=== PATIENT | female | born 1950 | race Caucasian/White ===

== ENCOUNTER → 2020-10-05 09:30 | Outpatient (BNV) | payer MEDICARE, BC, SELFPAY | PROVIDERS: PCP Internal Medicine; Visit Provider Internal Medicine | DX: Z85.3 Personal history of malignant neoplasm of breast (principal); Z80.3 Family history of malignant neoplasm of breast; Z92.3 Personal history of irradiation | CPT/HCPCS: 99213; 99214 ==

== ENCOUNTER → 2020-10-19 09:36 | Outpatient (BNVA) | payer MEDICARE, BC, SELFPAY | PROVIDERS: PCP Internal Medicine; Visit Provider Surgery | DX: C50.911 Malignant neoplasm of unspecified site of right female breast (principal); Z12.31 Encounter for screening mammogram for malignant neoplasm of breast; Z95.828 Presence of other vascular implants and grafts | CPT/HCPCS: 99212 ==

== ENCOUNTER 2020-10-21 08:43 | Outpatient (REF) | payer MEDICARE, BC, SELFPAY ==
--- NOTE | 2020-10-21 08:47 | MM_ITS ---
EXAMINATION: MM SCREENING DIGITAL MAMMOGRAPHY, BILATERAL CLINICAL INFORMATION: Screening. Asymptomatic. 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 The lifetime risk of breast cancer based on the Tyrer-Cuzick Model is not applicable (personal history right breast cancer). COMPARISON: Mammography: Left mammography 09/19/19, 09/17/18, 09/10/17, 09/06/16 TECHNIQUE: Digital mammography is performed in craniocaudal and mediolateral oblique views along with computer-aided detection (CAD). Craniocaudal view of the left breast exaggerated toward the axilla was also performed using digital breast Tomosynthesis FINDINGS: There are scattered areas of fibroglandular density (ACR BI-RADS breast composition Category b). Left breast: There are multiple circumscribed oval equal density masses or localized areas of duct ectasia. There are some dilated ducts behind the left nipple. No spiculated masses. There are multiple round and punctate calcifications throughout the left breast. No definite suspicious Left breast finding MM/MM screening mammo unilat LT IMPRESSION: Left breast only was examined. Areas of ductal ectasia and or multiple circumscribed small oval masses. No definite suspicious new left breast finding. These areas should be reexamined in 1 year. ASSESSMENT: BI-RADS 2: Benign RECOMMENDATION: Routine annual mammography screening. This patient's information was entered into a reminder system with a target due date for their next mammogram.
== END 2020-10-21 08:44 | disposition home or self-care (01) ==
LOC: HO.MAMMO 08:43
PROVIDERS: Absent Provider Internal Medicine; PCP Internal Medicine; Visit Provider Surgery
DX: Z12.31 Encounter for screening mammogram for malignant neoplasm of breast (principal)
CPT/HCPCS: 77067

== ENCOUNTER 2020-11-10 13:37 | Outpatient (REF) | payer MEDICARE, BC, SELFPAY ==
[2020-11-10 13:44] VITALS: BP 139/63; PULSE 75; RESP 17; TEMP 36.8; O2SAT 97; BMI 34.6
[2020-11-10 15:27] VITALS: BP 129/61; PULSE 82; RESP 18; O2SAT 96
--- NOTE | 2020-11-10 16:56 | W.PM.OPN ---
Operative Note Operative Note Date of Service: 11/10/20 Narrative: Preoperative diagnosis: IV port in place, no longer needed Postoperative diagnosis: Same Procedure: Removal of subcutaneous IV port Anesthesia: Local 1% lidocaine with epinephrine Estimated blood loss: Less than 5 cc Immediate complications: None Specimen: None Indications: This is a 70-year-old female who has a recent history of breast cancer and has completed chemotherapy treatment. She has a left infraclavicular IV port in place. It is no longer needed and she has requested removal. She is familiar with the technique and risks of infection, bleeding, scarring and retained foreign material. Procedure in detail: The patient in the supine position, time-out procedure was performed. The left upper chest wall was prepped with Betadine solution and was draped sterilely. Skin and subcutaneous tissues at the insertion site scar and overlying and surrounding the port were infiltrated with local anesthetic. Incision was then made through the old scar and was carried into the subcutaneous tissues. The hub of the port was identified and the port was carefully dissected free. Two holding sutures were identified and removed. Remaining attachments between the port and soft tissues were divided. The catheter was easily yet extracted from the subcutaneous tunnel. Catheter length of 23 cm was documented. There was no bleeding from the catheter tract. The tract was oversewn with a single suture of 4-0 Polysorb. The port was removed from the pocket. The pocket was then reapproximated with interrupted subcutaneous sutures of 4-0 Polysorb and skin was closed with a running subcuticular suture of 4-0 Polysorb. Steri-Strips and dry sterile dressings were applied. She tolerated the procedure well. She will keep the area dry and covered for 24 hours, will use acetaminophen as needed for pain, and will follow up in the office for wound check in about 1 week.
== END 2020-11-10 13:38 | disposition home or self-care (01) ==
LOC: HO.MS 13:37
PROVIDERS: PCP Internal Medicine; Visit Provider Surgery
PROC: (CPT 36590; principal; 2020-11-10 14:00)
DX: Z45.2 Encounter for adjustment and management of vascular access device (principal); C50.919 Malignant neoplasm of unspecified site of unspecified female breast; Z92.21 Personal history of antineoplastic chemotherapy; G35 Multiple sclerosis; Z88.7 Allergy status to serum and vaccine
CPT/HCPCS: 36590

== ENCOUNTER → 2020-11-16 14:25 | Outpatient (BNVA) | payer MEDICARE, BC, SELFPAY | PROVIDERS: PCP Internal Medicine; Referring Provider Internal Medicine; Visit Provider Surgery | DX: C50.911 Malignant neoplasm of unspecified site of right female breast (principal); Z98.890 Other specified postprocedural states; Z92.21 Personal history of antineoplastic chemotherapy; Z92.3 Personal history of irradiation | CPT/HCPCS: 99212 ==

== ENCOUNTER → 2020-12-02 09:28 | Outpatient (REF) | payer MEDICARE, BC, SELFPAY ==
--- NOTE | 2020-12-02 09:30 | CA_ITS ---
Transthoracic Echocardiogram Patient (Last, First, Middle): Marizol Escalante M Gender: Female Date of : 1950 Age: 70 Procedure Date: 12/02/2020 Procedure Type: Transthoracic Echocardiogram Location: OP Height: 165.1 cm Weight: 94.8 kg BSA: 2.02 m2 Heart Rate: bpm BP: 128 / 68 mmHg Travel Administrator: CAROLYN Adorno MD: Abran Finley MD [employer]icated [employer] Driver: Kofi Prakash MD Symptoms: Z09 CHEMOTHERAPY FOLLOW UP EXAM, R06.02 SOB Study Quality: Fair ECG Rhythm: Sinus Conclusions: - 1. Normal LV systolic function with impaired relaxation filling pattern 2. Mildly dilated left atrium 3. Mild mitral and calcification with normal cardiac valvular Doppler 4. Normal RV systolic pressure 5. No pericardial effusion Findings Left Ventricle Normal left ventricular size, thickness, and systolic function. The visually estimated ejection fraction is between 60-65%. Spectral Doppler is indicative of an impaired relaxation filling pattern. E/E prime ratio is between 8 and 15 consistent with indeterminate filling pressures. Right Ventricle Normal right ventricular cavity size and systolic function. Atria The left atrium is mildly dilated. There is lipomatous hypertrophy of the interatrial septum. There is no evidence of interatrial shunt. The right atrium is normal in size. Aortic Valve The aortic valve structure and function is likely normal. There is no aortic valve stenosis. There is no aortic valve regurgitation. Mitral Valve There is mild posterior mitral leaflet thickening. There is mild mitral annular calcification. There is trace mitral valve regurgitation. There is no mitral valve stenosis. Pulmonic Valve The pulmonic valve was not well visualized. Tricuspid Valve Likely normal tricuspid valve structure and function. There is mild tricuspid valve regurgitation. The right ventricular systolic pressure is normal. The right ventricular systolic pressure is 24 mmHg. Normal right atrial pressure. There is no evidence of pulmonary hypertension. Great Vessels All visible segments of the aorta are normal in size. The pulmonary artery was not well visualized. Venous The inferior vena cava is normal in size and collapses greater than 50% with inspiration. Pericardium/Pleural There is no evidence of pericardial effusion. Prior Study Comparison No significant change compared to prior study dated: 06/09/2020. Measurements 2D Linear Measurements IVSd: 0.98 0.6-0.9/0.6-1.0 cm LVIDd: 4.43 3.9-5.3/4.2-5.9 cm LVIDd Index: 2.19 2.4-3.2/2.2-3.1 cm/m2 LVIDs: 2.78 2.0-3.6 cm LVPWd: 0.89 0.7-1.1 cm Ao Root: 2.60 2.1-3.5 cm LA Diam: 3.50 2.7-3.8/3.0-4.0 cm LAIDs Index: 1.73 1.5-2.3 cm/m2 LV Mass: 170.13 67-162/88-224 g LV Mass Index: 84.22 43-95/49-115 g/m2 LVOT Diam: 2.00 3.0+(-)1.3 cm 2D Systolic Function EF 4C: 60.50 >55% EF 2C: 67.10 >55% EF BiP: 63.40 >55% Mitral Valve MV Pk E: 0.72 MV PK A: 0.74 MV Decel Time: 241.00 E/A: 1.00 E'Lateral: 6.85 E'Medial: 6.85 E/E' Med: 10.50 E/E' Lat: 10.50 PHT: 71.00 MVA PHT: 3.10 Decel Putnam: 2.99 Aortic Valve AoV Pk Al: 1.42 AoV Mn Al: 1.05 AoV VTI: 0.34 AoV Pk Grad: 8.00 Aov Mn Grad: 5.00 JOSE G Cont.VTI: 2.08 LVOT LVOT Pk Al: 0.99 LVOT Mn Al: 0.53 LVOT VTI: 0.23 LVOT Pk Grad: 4.00 LVOT Mn Grad: 2.00 LVOT Diam: 2.00 LVOT Area: 3.14 Diastolic Function MV Pk E: 0.72 MV Pk A: 0.74 E/A: 1.00 E'Medial: 6.85 E/E' Med: 10.50 E' Laterial: 6.85 E/E' Lat: 10.50 Tricuspid Valve TR Pk Al: 2.27 TR Pk Grad: 21.00 RA Press: 3.00 RVSP: 24.00 Great Vessels Aorta Ao Root-2D: 2.60 2.0-3.7 cm Ao Asc: 2.60 2.1-3.4 cm Ao Arch: 2.90 Updated in Other Vendor System with Status of Final Kofi Prakash MD electronically signed on 12/03/2020 1:17:42 PM with status of Final
== END ==
LOC: HO.CARD 09:28
PROVIDERS: Visit Provider Internal Medicine
DX: Z09 Encounter for follow-up examination after completed treatment for conditions other than malignant neoplasm (principal); R06.02 Shortness of breath
CPT/HCPCS: 93306

== ENCOUNTER → 2020-12-14 09:59 | Outpatient (BNVA) | payer MEDICARE, BC, SELFPAY | PROVIDERS: PCP Internal Medicine; Visit Provider Internal Medicine | DX: Z76.89 Persons encountering health services in other specified circumstances (principal) | CPT/HCPCS: Q3014 ==

== ENCOUNTER 2021-03-08 14:36 | Outpatient (REF) | payer MEDICARE, BC, SELFPAY ==
--- NOTE | ~2021-03-08 | MM_ITS ---
EXAMINATION: MM DIAGNOSTIC DIGITAL BREAST TOMOSYNTHESIS, RIGHT CLINICAL INFORMATION: Status post right lumpectomy and radiation for triple negative breast cancer 2018. COMPARISON: Mammography: 10/08/2019 (needle localization), 09/29/2019, 09/19/2019, 09/17/2018 TECHNIQUE: Digital breast tomosynthesis is performed in both the craniocaudal and mediolateral oblique views along with computer-aided detection (CAD). Synthesized 2D images are generated from the tomosynthesis. Additional views are obtained: Exaggerated CC, magnification CC x2, magnification ML x2. FINDINGS: There are scattered areas of fibroglandular density (ACR BI-RADS breast composition Category b). There are postsurgical changes with scarring posterior lateral breasts. Remainder of the breast is unremarkable. There is a chronic circumscribed nodule anterior upper outer quadrant similar to prior exams. There is no interval mass or developing density or abnormal calcifications. Results are provided to the patient at time of visit by the technologist. MM/MM tomosynthesis diagnostic RT IMPRESSION: Post therapy changes right breast. ASSESSMENT: BI-RADS 2: Benign RECOMMENDATION: Annual bilateral mammography. This patient's information was entered into a reminder system with a target due date for their next mammogram.
== END 2021-03-08 14:37 | disposition home or self-care (01) ==
LOC: HO.MAMMO 14:36
PROVIDERS: PCP Internal Medicine; Visit Provider Surgery
DX: Z85.3 Personal history of malignant neoplasm of breast (principal); Z92.3 Personal history of irradiation
CPT/HCPCS: 77061; 77065

== ENCOUNTER → 2021-03-11 09:01 | Outpatient (BNVA) | payer MEDICARE, BC, SELFPAY | PROVIDERS: PCP Internal Medicine; Referring Provider Internal Medicine; Visit Provider Surgery | DX: C50.911 Malignant neoplasm of unspecified site of right female breast (principal) | CPT/HCPCS: 99212 ==

== ENCOUNTER 2021-05-24 09:50 | Outpatient (REF) | payer MEDICARE, BC, SELFPAY ==
--- NOTE | ~2021-05-24 | XR_ITS ---
EXAMINATION: XR HIP, RIGHT CLINICAL INFORMATION: Hip arthritis COMPARISON: None TECHNIQUE: Three views of the right hip. FINDINGS: No acute fracture or dislocation. There is moderate joint space narrowing with subchondral sclerosis and osteophyte formation. There is mild calcific tendinopathy. XR/XR hip RT min 2V IMPRESSION: Moderate degenerative disease of the right hip.
== END 2021-05-24 09:51 | disposition home or self-care (01) ==
LOC: HO.XRAY 09:50
PROVIDERS: PCP Internal Medicine; Visit Provider Psychiatry & Neurology Neurology
DX: M19.90 Unspecified osteoarthritis, unspecified site (principal)
CPT/HCPCS: 73502

== ENCOUNTER 2021-06-11 18:40 | Emergency (ER) | payer MEDICARE, BC, SELFPAY ==
--- NOTE | ~2021-06-11 | US_ITS ---
EXAMINATION: US VENOUS ULTRASOUND WITH DOPPLER LOWER EXTREMITY, LEFT CLINICAL INFORMATION: Left leg pain and swelling COMPARISON: None TECHNIQUE: Ultrasound of the deep veins is performed from the hip to the calf with compression sonography and color and pulse Doppler assessment. Spectral analysis with color-flow imaging is performed. FINDINGS: There is normal venous compression and respiratory variation and augmented flow. The visualized common femoral vein, superficial femoral vein, profunda femoral vein, popliteal vein, and the trifurcation region shows no evidence of deep venous thrombosis. There is no significant popliteal fossa cyst. A tiny hypoechoic collection seen posterolaterally measuring only 1.6 cm is present. If the patient's symptoms persist, followup ultrasound in 5 days 7 days might be of value to exclude proximal propagation from a non-visualized calf vein. US/US venous duplex LE IMPRESSION: No DVT demonstrated in the left lower extremity.
[2021-06-11 18:56] VITALS: BP 150/67; PULSE 69; RESP 18; TEMP 35.6; O2SAT 99; BMI 34.4
--- NOTE | 2021-06-11 20:08 | ED_ITS ---
HPI - Extremity Problem General Chief complaint: Extremity Problem Stated complaint: possible clot Time Seen by Provider: 06/11/21 19:11 Source: patient Mode of arrival: ambulatory Limitations: no limitations History of Present Illness HPI Narrative: 70-year-old female with past medical history of breast cancer last chemotherapy approximately 1 year ago presents with left lateral leg pain. States that there is a tenderness to the left lateral leg in 1 spot right near the patella. She does not report any trauma or injury, insect bite or abscess. States that she was referred to the emergency department for evaluation for DVT. She did not report any chest pain or pressure, palpitations, shortness of breath on exertion, pain on inspiration, hormone therapy, chemotherapy, or edema. Related Data Home Medications Medication Instructions Recorded Confirmed acetaminophen [Tylenol Arthritis] 650 mg PO Q8H PRN 10/05/20 03/11/21 atorvastatin 1 tab PO DAILY 10/05/20 03/11/21 bimatoprost 1 drp OPHTHALMIC (EYE) DAILY 10/05/20 03/11/21 citalopram 1 tab PO DAILY 10/05/20 03/11/21 glucos sul [id number] 1 cap PO DAILY 10/05/20 03/11/21 [Glucosamine Chondroitin] multivitamin 1 tab PO DAILY 10/05/20 03/11/21 brinzolamide 1 % eye 1 drp OPHTHALMIC (EYE) BID ml 10/19/20 03/11/21 drops,suspension docusate sodium 100 mg capsule 100 mg PO .COMPLEX 11/16/20 03/11/21 Allergies Allergy/AdvReac Type Severity Reaction Status Date / Time Tetanus Vaccines and Toxoid Allergy Intermediate SWELLING Verified 11/16/20 14:43 [Tetanus] Review of Systems Review of Systems: Constitutional: No Fever, No Chills ENT/Mouth: No Ear Pain, No Hoarseness, No sore throat Eyes: No Eye Pain, No Swelling, No Redness, No Foreign Body Cardiovascular: No Chest Pain, No SOB Respiratory: No Cough, No Dyspnea Gastrointestinal: No Nausea, No Vomiting, No Diarrhea, No abdominal Pain Genitourinary: No Dysuria, No Hematuria Musculoskeletal: positive left lateral leg pain, No Myalgias, No Joint Swelling Skin: No Skin lacerations, No rash Neuro: No Weakness, No Numbness, No Paresthesias, No Loss of Consciousness, No Dizziness, No Headache Psych: No Anxiety/Panic, No Depression Heme/Lymph: no easy bruising, no Lymphadenopathy Endocrine: No Polyuria, No Polydipsia Yes all other systems are reviewed and are negative FOR[facility]LY [facility] Past Medical History Attestation statement: The following information was validated with the patient. Source: old records reviewed Medical History Abnormal Pap smear of cervix Breast cancer Glaucoma H/O coronary angiogram Multiple sclerosis Other and unspecified hyperlipidemia Surgical History H/O section History of lumpectomy of right breast History of removal of Port-a-Cath Hx of cholecystectomy Hx of colonoscopy Hx of endoscopy Family History Family History Family/Other Triple negative malignant neoplasm of breast Paternal Grandfather Colon cancer Maternal Grandfather Colon cancer Brother Heart attack Father Coronary artery disease Mother Coronary artery disease Social History Social History Advance Directives: No Advance Directives Information Provided: Yes Physical Exam Vital Signs: Vital Signs: Last Vital Signs Temp 96.1 F L 06/11/21 18:56 Pulse 71 06/11/21 20:33 Resp 16 06/11/21 20:33 BP 134/78 06/11/21 20:33 Pulse Ox 98 06/11/21 20:33 Body Mass Index 34.4 Appearance: Alert. Oriented X3. No acute distress. Eyes: Pupils equal, round and reactive to light. ENT: Pharynx normal. Neck: Normal inspection. Neck supple. CVS: Normal heart rate and rhythm. Pulses normal. Respiratory: No respiratory distress. Breath sounds normal. Abdomen: Soft and nontender. Skin: Skin warm and dry. Normal skin color. Normal skin turgor. Extremities: No lower extremity edema. Point tenderness to the left lateral knee, full range of motion, equal pedal pulses, no edema noted. Neuro: No motor deficit. No sensory deficit. Course Course Course Narrative: 70-year-old female with past medical history of breast cancer, presents with left leg pain. Presented to the emergency department to rule out DVT. Duplex is negative for DVT. Patient was referred back to her primary care physician for further investigation. MDM - Extremity (Nontraumatic) Differential Diagnosis Differential diagnosis: Likely cellulitis and deep vein thrombosis of lower extremity Medical Records Attestation: I reviewed the patient's medical records. Imaging Data Venous ultrasound: Attestation: I personally reviewed and interpreted this imaging study as follows: Radiologist's impression: EXAMINATION: US VENOUS ULTRASOUND WITH DOPPLER LOWER EXTREMITY, LEFT CLINICAL INFORMATION: Left leg pain and swelling COMPARISON: None TECHNIQUE: Ultrasound of the deep veins is performed from the hip to the calf with compression sonography and color and pulse Doppler assessment. Spectral analysis with color-flow imaging is performed. FINDINGS: There is normal venous compression and respiratory variation and augmented flow. The visualized common femoral vein, superficial femoral vein, profunda femoral vein, popliteal vein, and the trifurcation region shows no evidence of deep venous thrombosis. There is no significant popliteal fossa cyst. A tiny hypoechoic collection seen posterolaterally measuring only 1.6 cm is present. If the patient's symptoms persist, followup ultrasound in 5 days 7 days might be of value to exclude proximal propagation from a non-visualized calf vein. US/US venous duplex LE LT IMPRESSION: No DVT demonstrated in the left lower extremity. Discharge Plan Discharge Clinical Impression: Acute pain of left knee Patient Disposition: Home, Self-Care Instructions: Knee Pain (ED) Additional Instructions: You were evaluated for left knee pain. DVT study is negative for blood clots and acute findings requiring emergent intervention. Please follow-up with primary care physician for further workup. Thank you for choosing this emergency department for evaluation. Please follow-up with primary care physician as needed. Return to the emergency department for any new, concerning, or worsening symptoms. Prescriptions: No Action atorvastatin 20 mg tablet 1 tab PO DAILY RF: 0 acetaminophen [Tylenol Arthritis] 650 mg Tablet Extended Release 650 mg PO Q8H PRN (Reason: Pain) RF: 0 citalopram 20 mg tablet 1 tab PO DAILY RF: 0 bimatoprost 0.01 % Drops 1 drp OPHTHALMIC (EYE) DAILY RF: 0 multivitamin Tablet 1 tab PO DAILY RF: 0 Glucosamine Chondroitin 550-30-1 mg Capsule 1 cap PO DAILY RF: 0 brinzolamide 1 % drops,suspension 1 drp OPHTHALMIC (EYE) BID RF: 0 docusate sodium [Colace] 100 mg capsule 100 mg PO .COMPLEX RF: 0 Interventions: ED Discharge Assessment Last Done: 06/11/21 21:43 Discharge Date/Time: 06/11/21 21:43
[2021-06-11 20:33] VITALS: BP 134/78; PULSE 71; RESP 16; O2SAT 98
== END 2021-06-11 21:43 | disposition home or self-care (01) ==
PROVIDERS: Emergency Provider Emergency Medicine; PCP Internal Medicine
DX: M25.562 Pain in left knee (principal); G35 Multiple sclerosis; Z85.3 Personal history of malignant neoplasm of breast
CPT/HCPCS: 93971; 99284

== ENCOUNTER 2021-10-10 09:03 | Outpatient (REF) | payer MEDICARE, BC, SELFPAY ==
--- NOTE | ~2021-10-10 | MM_ITS ---
EXAMINATION: MM DIAGNOSTIC DIGITAL BREAST TOMOSYNTHESIS, BILATERAL CLINICAL INFORMATION: Due for yearly. Right lumpectomy 10/08/2019 for triple negative invasive ductal cancer. COMPARISON: Mammography: 03/08/2021, 10/21/2020, 10/08/2019, 09/29/2019, 09/19/2019, 09/17/2018 TECHNIQUE: Digital breast tomosynthesis is performed in both the craniocaudal and mediolateral oblique views along with computer-aided detection (CAD). Synthesized 2D images are generated from the tomosynthesis. Additional views right breast are obtained: Exaggerated CC, magnification CC, magnification ML. FINDINGS: There are scattered areas of fibroglandular density (ACR BI-RADS breast composition Category b). Post therapy changes right breast are again noted with reduced breast size and minor scarring. The contralateral left breast has stable nodularity and mild duct ectasia. There are some scattered calcifications in both breasts. There is no interval mass or architectural abnormality or developing density. There are no significant changes. Results are provided to the patient at time of visit by the technologist. MM/MM tomosynthesis diagnostic BI IMPRESSION: No significant changes from prior exams. Post therapy changes right breast. ASSESSMENT: BI-RADS 2: Benign RECOMMENDATION: Annual bilateral mammography. This patient's information was entered into a reminder system with a target due date for their next mammogram.
== END 2021-10-10 09:04 | disposition home or self-care (01) ==
LOC: HO.MAMMO 09:03
PROVIDERS: PCP Internal Medicine; Visit Provider Surgery
DX: Z85.3 Personal history of malignant neoplasm of breast (principal); Z98.890 Other specified postprocedural states
CPT/HCPCS: 77062; 77066

== ENCOUNTER 2021-10-10 10:08 | Outpatient (REF) | payer MEDICARE, BC, SELFPAY ==
[2021-10-10 10:40] LABS: COVID-19 Test Negative (Negative)
== END 2021-10-10 10:09 | disposition home or self-care (01) ==
LOC: HO.LAB 10:08
PROVIDERS: PCP Internal Medicine; Visit Provider Internal Medicine
DX: Z20.822 Contact with and (suspected) exposure to COVID-19 (principal)
CPT/HCPCS: 36415; 87635; C9803

== ENCOUNTER 2021-12-21 09:13 | Outpatient (REF) | payer MEDICARE, BC, SELFPAY ==
--- NOTE | ~2021-12-21 | XR_ITS ---
EXAMINATION: XR CLAVICLE, LEFT CLINICAL INFORMATION: Pain COMPARISON: Left femur is shoulder x-ray February 2009 TECHNIQUE: 2 of the left clavicle. FINDINGS: The clavicle is normal-appearing. There is an old healed left humeral neck fracture. There is arthritis at the acromion clavicular joint. Soft tissues are unremarkable. XR/XR clavicle LT IMPRESSION: Normal left clavicle. Old healed left proximal humerus fracture. Arthritis at the acromioclavicular joint.
--- NOTE | ~2021-12-21 | XR_ITS ---
EXAMINATION: XR SHOULDER, LEFT CLINICAL INFORMATION: Left clavicle pain. COMPARISON: Concurrent left clavicle radiographs. TECHNIQUE: 3 views of the left shoulder. FINDINGS: Deformity of the left humeral neck with periosteal reaction and new bone/callus formation, consistent with a chronic, healed fracture. No acute fracture or dislocation. Small acromioclavicular marginal osteophytes. Glenohumeral joint space narrowing with small marginal osteophytes. No osseous erosion. No abnormal soft tissue calcification. XR/XR shoulder LT min 2V IMPRESSION: No acute fracture or dislocation. Healed proximal humeral fracture. Mild acromioclavicular and glenohumeral osteoarthritis.
== END 2021-12-21 09:14 | disposition home or self-care (01) ==
LOC: HO.HMGCX 09:13
PROVIDERS: PCP Internal Medicine; Visit Provider Internal Medicine
DX: M89.8X1 Other specified disorders of bone, shoulder (principal)
CPT/HCPCS: 73000; 73030

== ENCOUNTER 2022-05-17 13:42 | Outpatient (REF) | payer MEDICARE, BC, SELFPAY ==
--- NOTE | ~2022-05-17 | XR_ITS ---
EXAMINATION: AP BILATERAL KNEE STANDING AND RIGHT KNEE. CLINICAL INFORMATION: Pain right knee. COMPARISON: None. TECHNIQUE: AP bilateral knee standing. Right knee 2 views. FINDINGS: AP BILATERAL KNEE: There is mild reduction in medial and lateral compartment joint space of both knees. No periarticular spurring or loose body is seen. No soft tissue swelling. RIGHT KNEE: The patellofemoral compartment joint space is maintained. There is no abnormal joint effusion seen. There is an anterior superior patellar small enthesophyte. No fracture or dislocation. XR/XR knee standing BI IMPRESSION: Small anterior superior patellar enthesophyte. No visible acute fracture, dislocation or subluxation is seen. No bony erosive changes. No abnormal joint effusion.
--- NOTE | ~2022-05-17 | XR_ITS ---
EXAMINATION: AP BILATERAL KNEE STANDING AND RIGHT KNEE. CLINICAL INFORMATION: Pain right knee. COMPARISON: None. TECHNIQUE: AP bilateral knee standing. Right knee 2 views. FINDINGS: AP BILATERAL KNEE: There is mild reduction in medial and lateral compartment joint space of both knees. No periarticular spurring or loose body is seen. No soft tissue swelling. RIGHT KNEE: The patellofemoral compartment joint space is maintained. There is no abnormal joint effusion seen. There is an anterior superior patellar small enthesophyte. No fracture or dislocation. XR/XR knee RT 2V IMPRESSION: Small anterior superior patellar enthesophyte. No visible acute fracture, dislocation or subluxation is seen. No bony erosive changes. No abnormal joint effusion.
== END 2022-05-17 13:43 | disposition home or self-care (01) ==
LOC: HO.HOSX 13:42
PROVIDERS: Visit Provider Physician Assistant
DX: M25.561 Pain in right knee (principal); M17.11 Unilateral primary osteoarthritis, right knee; M19.012 Primary osteoarthritis, left shoulder; G35 Multiple sclerosis
CPT/HCPCS: 73560; 73565; 99202

== ENCOUNTER 2022-10-10 12:21 | Outpatient (REF) | payer MEDICARE, BC, SELFPAY ==
--- NOTE | ~2022-10-10 | MM_ITS ---
EXAMINATION: MM DIAGNOSTIC DIGITAL BREAST TOMOSYNTHESIS, BILATERAL CLINICAL INFORMATION: Right IDC status post lumpectomy 10/08/2019. Due for yearly. COMPARISON: Mammography: 10/10/2021, 03/08/2021, 10/21/2020, 10/08/2019, 09/29/2019, 09/19/2019, 09/17/2018 TECHNIQUE: Digital breast tomosynthesis is performed in both the craniocaudal and mediolateral oblique views along with computer-aided detection (CAD). Synthesized 2D images are generated from the tomosynthesis. Additional views are obtained: Exaggerated right CC, left MLO, and bilateral magnification CC, right magnification ML x2, left magnification ML. FINDINGS: There are scattered areas of fibroglandular density (ACR BI-RADS breast composition Category b). Parenchymal pattern is similar to prior exams. There are incidental post therapy changes on the right. Nodular asymmetric densities left breast are stable. No developing density or architectural abnormality. No abnormal calcifications. The axilla are unremarkable. No significant changes. Results are provided to the patient at time of visit by the technologist. MM/MM tomosynthesis diagnostic BI IMPRESSION: No mammographic evidence of malignancy. ASSESSMENT: BI-RADS 2: Benign RECOMMENDATION: Routine annual mammography screening. This patient's information was entered into a reminder system with a target due date for their next mammogram.
== END 2022-10-10 12:22 | disposition home or self-care (01) ==
LOC: HO.MAMMO 12:21
PROVIDERS: PCP Internal Medicine; Visit Provider Surgery
DX: Z85.3 Personal history of malignant neoplasm of breast (principal)
CPT/HCPCS: 77062; 77066

== ENCOUNTER 2023-04-19 08:32 | Outpatient (REF) | payer MEDICARE, BC, SELFPAY ==
[2023-04-19 11:00] LABS: MANUAL DIFF FLAG NO
[2023-04-19 11:27] LABS: Basophils Percent Auto 0.4 % (0-2); Eosinophils Absolute Auto 0.2 X10*3/uL (0.0-0.4); Eosinophils Percent Auto 2.7 % (0-4); Hematocrit 43.4 % (37.0-47.0); Hemoglobin 14.1 g/dl (12.0-16.0); Imm Gran Abs Auto 0.03 X10*3/uL (0.00-0.03); Imm Gran Pct Auto 0.4 % (0.0-0.4); Lymphocytes Absolute Auto 1.2 X10*3/uL (1.2-4.9); Lymphocytes Percent Auto 15.2 % (20-40); Mean Corpuscular HGB Conc 32.5 g/dl (31.0-35.0); Mean Corpuscular Hemoglobin 29.6 pg (27.0-33.0); Mean Corpuscular Volume 91.2 fL (80.0-98.0); Mean Platelet Volume 10.6 fL (9.4-12.3); Monocytes Absolute Auto 0.8 X10*3/uL (0.1-1.2); Monocytes Percent Auto 10.4 % (2-11); Neutrophils Absolute Auto 5.7 x10*3/uL (2.0-8.3); Neutrophils Percent Auto 70.9 % (45-73); Platelet Count 278 X10*3/uL (160-400); Red Blood Count 4.76 X10*6/uL (4.20-5.50); Red Cell Distribution Width 13.9 % (11.0-16.0)
[2023-04-19 11:49] LABS: Alanine Aminotransferase 15 U/L (0-31); Albumin Level 4.1 g/dL (3.5-5.0); Alkaline Phosphatase 81 U/L (39-117); Anion Gap 14 (12-20); Aspartate Amino Transferase 14 U/L (5-31); Bilirubin Total 1.3 mg/dL (0.0-1.0); Blood Urea Nitrogen 16 mg/dL (9-16); Calcium 9.1 mg/dL (8.4-10.2); Carbon Dioxide 22 mmol/L (22-29); Chloride 107 mmol/L (96-108); Cholesterol 153 mg/dL; Estimated Glomerular Filt Rate > 60; Glucose Fasting 129 mg/dL (60-99); HDL Cholesterol 60 mg/dL; LDL Cholesterol Calculated 70 mg/dl; Sodium 139 mmol/L (135-145); Total Protein 6.7 g/dL (6.5-8.0); Triglycerides 117 mg/dL
[2023-04-19 11:56] LABS: Vitamin D 25-OH Total 49.1 ng/mL (>30)
== END 2023-04-19 08:33 | disposition home or self-care (01) ==
LOC: HO.HMGCLDS 08:32
PROVIDERS: PCP Internal Medicine; Visit Provider Internal Medicine
DX: E78.00 Pure hypercholesterolemia, unspecified (principal); G35 Multiple sclerosis; M19.90 Unspecified osteoarthritis, unspecified site; E66.09 Other obesity due to excess calories
CPT/HCPCS: 36415; 80053; 80061; 82306; 84443; 85025

== ENCOUNTER 2023-05-30 08:10 | Outpatient (REF) | payer MEDICARE, BC, SELFPAY ==
--- NOTE | ~2023-05-30 | MM_ITS ---
EXAMINATION: BONE DENSITOMETRY CLINICAL INDICATION: Multiple sclerosis. Malignant neoplasm of lower outer quadrant of right female breast. Other obesity. COMPARISON: Baseline BD dated 11/01/2010. TECHNIQUE: Using a [employer] DXA System (software version: 13.1) manufactured by [employer], dual-energy x-ray absorptiometry was performed of the lumbar spine and left hip. The images are of good technical quality. Summary results are attached. FINDINGS: AP SPINE L1-L4: Current: BMD 0.967 g/cm2, Z-score -1.1, T-score -1.8, osteopenia, 5.7% decrease from baseline (<5% change is not significant). Baseline: BMD 1.025 g/cm2. LEFT FEMUR, NECK: Current: BMD 0.823 g/cm2, Z-score -0.5, T-score -1.5, osteopenia. Baseline: BMD 0.925 g/cm2. LEFT FEMUR, TOTAL: Current: BMD 0.862 g/cm2, Z-score -0.4, T-score -1.2, osteopenia, 8.8% decrease from baseline (<5% change is not significant). Baseline: BMD 0.945 g/cm2. IDENTIFIED RISK FACTORS: History of adult fracture. Height loss. Secondary osteoporosis (early menopause). Chronic glucocorticoids. HISTORY OF FRACTURE: Humerus. Other. MEDICATIONS: Calcium supplement and/or multivitamin. MM/XR DEXA axial skeleton IMPRESSION: 1. DIAGNOSIS: Osteopenia based on the lowest T-score value of -1.8 in the lumbar spine applying World Health Organization criteria. 2. 10-YEAR FRACTURE RISK PREDICTION, FRAX: Major osteoporotic fracture (clinical spine, forearm, hip or shoulder) 23.2%. Hip fracture 3.9%. 3. Treatment Recommendations: NOF guidelines recommend consideration for treatment in postmenopausal women and men age 50 and older presenting with the following: -A hip or vertebral (clinical or morphometric) fracture. -T-score less than or equal to -2.5 at the femoral neck or spine after appropriate evaluation to exclude secondary causes. -Low bone mass at the hip or spine and a 10-year fracture probability by FRAX of greater than or equal to 3% for hip fracture or greater than or equal to 20% for major osteoporotic fracture based on the [place] adapted WHO algorithm. 4. Other Recommendations: All treatment decisions require clinical judgment and consideration of individual patient factors, including patient preferences, comorbidities, previous drug use, risk factors not captured in the FRAX model (e.g. frailty, falls, vitamin D deficiency, increased bone turnover, interval significant decline in bone density) and possible under or overestimation of fracture risk by FRAX. Additional medical evaluation for secondary cause of low bone mineral density may be appropriate. FUTURE SCAN RECOMMENDATION: People with diagnosed cases of osteoporosis or at high risk for fracture should have regular bone mineral density tests. For patients eligible for Medicare, routine testing is allowed once every 2 years. The testing frequency can be increased to one year for patients who have rapidly progressing disease, those who are receiving or discontinuing medical therapy to restore bone mass, or have additional risk factors.
== END 2023-05-30 08:11 | disposition home or self-care (01) ==
LOC: HO.MAMMO 08:10
PROVIDERS: PCP Internal Medicine; Visit Provider Internal Medicine
DX: Z13.820 Encounter for screening for osteoporosis (principal); Z78.0 Asymptomatic menopausal state; G35 Multiple sclerosis
CPT/HCPCS: 77080

== ENCOUNTER 2023-06-18 09:13 | Outpatient (AMB) | payer MEDICARE, BC, SELFPAY ==
[2023-06-18 09:16] VITALS: BP 130/70; PULSE 84; BMI 35.6
--- NOTE | 2023-06-18 09:16 | MHC.OFFVIS ---
Intake Vital Signs 06/18/23 09:16 Height 5 ft 5 in Weight 213 lb 13.574 oz BMI 35.6 BP 130/70 Blood Pressure Location Lt brachial Position Sitting Pulse 84 Intake Visit Reasons: overdue follow up Intake Note: overdue f/u Director Database Required: No Allergies Tetanus Vaccines and Toxoid [Tetanus] Allergy (Intermediate, Verified 06/18/23 09:24) SWELLING Medication List - Last Reconciled 06/18/23 by Teresa Shi, RONALDO-C acetaminophen 500 mg PO Q6H PRN atorvastatin 1 tab PO DAILY bimatoprost 0.01% (Lumigan) 1 drp ophthalmic (eye) DAILY brinzolamide 1% (Azopt) 1 drp ophthalmic (eye) BID citalopram 1 tab PO DAILY glucos sul [id number]-Mn 550-30-1 mg (Glucosamine Chondroitin) 500 caps PO TID multivitamin 1 tab PO DAILY HPI overdue follow up HPI Details Marizol is a 72-year-old female with past medical history of hyperlipidemia, breast cancer with chemotherapy 2 years ago who presents for follow-up with report of heart palpitation. Today she reports that she has been doing generally well since her last visit here 12/14/2020. She made this appointment due to reports of heart palpitations which is causing her concern. She is noticing that her heart speeds up for a few seconds and then goes back to normal. This can happen randomly about 2 to 3 times a month. No pattern identified. No associated symptoms. No chest discomfort at rest or with activity. No shortness of breath, PND, orthopnea or edema. No dizziness, presyncope, syncope, falls. Taking meds as directed. Continues to do well with her prior breast cancer. [facility] Medical History Abnormal Pap smear of cervix Breast cancer Glaucoma H/O coronary angiogram Lichen planus Multiple sclerosis Other and unspecified hyperlipidemia Surgical History H/O section History of lumpectomy of right breast History of removal of Port-a-Cath Hx of cholecystectomy Hx of colonoscopy Hx of endoscopy Family History Family/Other Triple negative malignant neoplasm of breast Paternal Grandfather Colon cancer Maternal Grandfather Colon cancer Brother Heart attack Father Coronary artery disease Mother Coronary artery disease Social History Household Members: Spouse Housing: House Are you a primary emergency care tech to a significant other at home: No Do you presently have visiting nurse or other home services: No Alcohol intake: current Alcohol intake frequency: holidays/special occasions only Patient Tobacco Use Status: Never used Tobacco service: No 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 Review of Systems Const All systems reviewed & are unremarkable except as noted in HPI and below ENT Reports dizziness Card Denies chest pain, Denies chest pain at rest, Denies chest pain with activity, Denies rapid heart rate, Denies pedal edema, Denies edema, Denies leg edema, Denies lightheadedness, Reports palpitations, Denies dyspnea, Denies dyspnea on exertion and Denies orthopnea Resp Denies cough, Denies dyspnea and Denies dyspnea on exertion GI Denies hematochezia and Denies change in stool character Musc Denies abnormal gait, Reports limited range of motion, Reports muscle cramps, Denies muscle weakness, Denies numbness, Denies radiating pain into limb, Denies stiffness and Denies tingling Neuro Denies abnormal gait, Reports dizziness, Denies numbness and Denies tingling Endo Reports palpitations Physical Exam Vital Signs: Last Vital Signs Pulse 84 06/18/23 09:16 BP 130/70 06/18/23 09:16 BMI result Body Mass Index 35.6 Const General: cooperative, healthy appearing, comfortable and no acute distress Orientation/consciousness: patient oriented x3 Neck Neck: Yes normal visual inspection Resp Effort & Inspection: normal respiratory effort Auscultation: clear to auscultation bilaterally, no crackles, no rales, no rhonchi and no wheezes Cardio Jugular venous distension: no JVD Rate: regular rate Rhythm: regular rhythm Heart sounds: S1 normal heart sound present, S2 normal heart sound present, no gallops, no murmurs and no rubs Peripheral pulses: Peripheral pulses 2+ throughout Neuro General: patient oriented x3 Extrem General: Yes normal to inspection Psych Appearance: grossly normal Mental Status: mental status grossly normal Speech and movement: Normal speech and movement present Office Procedures EKG Details: Today, read by me, normal sinus rhythm, no acute ST or T-wave abnormalities, rate 84, QTC 446 millisecond [id number], Complete Assessment & Plan Assessment & Plan (1) Palpitation: Code(s): R00.2 - Palpitations Plan: Reports of heart palpitations which feel like rapid heartbeat lasting a few seconds and going back to normal. This can happen a few times each month and is causing her much concern. No dizziness, presyncope, syncope. EKG done today showing normal sinus rhythm, heart rate 84. Instructed on reduction of caffeinated beverages, good hydration. Will check 7 day Holter as her symptom does not occur every day. Will check echocardiogram to ensure EF has remained normal. Cardiology follow-up in 6-8 weeks, sooner if needed. ED care if needed for sustained rapid palpitations (2) Breast cancer, right: Comment: She is doing well with regard to her history of right breast carcinoma. Code(s): C50.911 - Malignant neoplasm of unspecified site of right female breast Plan: History of breast CA. Currently reports doing well. Previously had chemotherapy. Last known echo 2020 with EF 60-65%, mild dilation of the left atrium, no valve abnormalities (3) Chemotherapy follow-up examination: Code(s): Z09 - Encounter for follow-up examination after completed treatment for conditions other than malignant neoplasm Coding Level of Care Code Est Pt Level 4 (82558) Diagnoses Palpitation R00.2 Breast cancer, right C50.911 Chemotherapy follow-up examination Z09 CPT Codes EKG - CPT: 13550-[id number], Complete ([id number]) Time Spent (min) 24 Comment Chart review, documentation, interview, assess
== END 2023-06-18 09:45 | disposition home or self-care (01) ==
PROVIDERS: PCP Internal Medicine; Visit Provider Nurse Practitioner Family
DX: R00.2 Palpitations (principal); C50.911 Malignant neoplasm of unspecified site of right female breast; Z09 Encounter for follow-up examination after completed treatment for conditions other than malignant neoplasm
CPT/HCPCS: 93010; 99214

== ENCOUNTER → 2023-06-18 09:13 | Outpatient (BNVA) | payer MEDICARE, BC, SELFPAY | PROVIDERS: PCP Internal Medicine; Visit Provider Nurse Practitioner Family | DX: R00.2 Palpitations (principal); C50.911 Malignant neoplasm of unspecified site of right female breast | CPT/HCPCS: 93005; 99212 ==

== ENCOUNTER → 2023-07-17 11:00 | Outpatient (REF) | payer MEDICARE, BC, SELFPAY ==
--- NOTE | 2023-07-17 11:04 | CA_ITS ---
Transthoracic Echocardiogram Patient (Last, First, Middle): Marizol Escalante M Gender: Female Date of : 1950 Age: 73 Procedure Date: 07/17/2023 Procedure Type: Transthoracic Echocardiogram Location: OP Height: 165.1 cm Weight: 98.43 kg BSA: 2.05 m2 Heart Rate: bpm BP: 132 / 57 mmHg Human Resources Specialist: HI/KIRSTIN Referring MD: Teresa Shi ACCELERATOR SYSTEMS DIRECTORJc Symptoms: R00.2 - Palpitations Study Quality: Adequate ECG Rhythm: Sinus Conclusions: - The left ventricular systolic function is normal. The calculated ejection fraction is 68% by biplane method. - No obvious valvular pathology seen on this study. Findings Left Ventricle Normal left ventricular cavity size. There is normal left ventricular wall thickness. The left ventricular systolic function is normal. The calculated ejection fraction is 68% by biplane method. There is no evidence of regional wall motion abnormalities. Diastolic function is normal for age. Right Ventricle Normal right ventricular cavity size and systolic function. Atria Both atria are normal in size. Aortic Valve There is a normal trileaflet aortic valve. There is no aortic valve stenosis. There is no aortic valve regurgitation. Mitral Valve The mitral valve appears normal. There is no mitral valve regurgitation. There is no mitral valve stenosis. Pulmonic Valve The pulmonic valve is likely normal. Tricuspid Valve There is trace tricuspid valve regurgitation. There is no evidence of pulmonary hypertension. Great Vessels The asc aorta is normal in size. Venous The inferior vena cava was not well visualized. Pericardium/Pleural There is no evidence of pericardial effusion. Prior Study Comparison No significant change compared to prior study dated: 12/02/2020. Recommendations, Care & Conclusions No obvious valvular pathology seen on this study. Measurements 2D Linear Measurements IVSd: 0.92 0.6-0.9/0.6-1.0 cm LVIDd: 4.37 3.9-5.3/4.2-5.9 cm LVIDd Index: 2.13 2.4-3.2/2.2-3.1 cm/m2 LVIDs: 2.70 2.0-3.6 cm LVPWd: 0.76 0.7-1.1 cm LA Diam: 4.00 2.7-3.8/3.0-4.0 cm LAIDs Index: 1.95 1.5-2.3 cm/m2 LV Mass: 143.28 67-162/88-224 g LV Mass Index: 69.89 43-95/49-115 g/m2 LVOT Diam: 2.00 3.0+(-)1.3 cm 2D Systolic Function EF 4C: 63.20 >55% EF 2C: 69.40 >55% EF BiP: 67.50 >55% Mitral Valve MV Pk E: 0.70 MV PK A: 0.99 MV Decel Time: 187.00 E/A: 0.70 E'Lateral: 7.29 E'Medial: 5.00 E/E' Med: 14.10 E/E' Lat: 9.60 PHT: 55.00 MVA PHT: 4.00 Decel [place]: 3.75 Aortic Valve AoV Pk Al: 1.40 AoV Mn Al: 1.01 AoV VTI: 0.33 AoV Pk Grad: 8.00 Aov Mn Grad: 4.00 JOSE G Cont.VTI: 2.16 LVOT LVOT Pk Al: 1.04 LVOT Mn Al: 0.65 LVOT VTI: 0.22 LVOT Pk Grad: 4.00 LVOT Mn Grad: 2.00 LVOT Diam: 2.00 LVOT Area: 3.14 Diastolic Function MV Pk E: 0.70 MV Pk A: 0.99 E/A: 0.70 E'Medial: 5.00 E/E' Med: 14.10 E' Laterial: 7.29 E/E' Lat: 9.60 Right Ventricle TAPSE (mm): 24.40 TVS' Al: 9.90 Tricuspid Valve TR Pk Al: 2.44 TR Pk Grad: 24.00 Great Vessels Aorta Sinus of Valsalva: 2.73 2.0-3.5 cm Ao Asc: 2.80 2.1-3.4 cm Ao Arch: 2.80 Updated in Other Vendor System with Status of Final Abran Finley MD electronically signed on 07/17/2023 3:55:18 PM with status of Final
--- NOTE | 2023-07-17 11:04 | HM_ITS ---
* Total monitoring time 7 days. * Underlying rhythm is sinus. Average ventricular rate 71/Min. Range 55 to 135/Min. * Rare supraventricular and ventricular ectopy. * No significant pauses or AV blocks. * No patient markers or events in diary. MTDD
== END ==
LOC: HO.CARD 11:00
PROVIDERS: PCP Internal Medicine; Visit Provider Nurse Practitioner Family
DX: R00.2 Palpitations (principal)
CPT/HCPCS: 93242; 93306

== ENCOUNTER → 2023-07-17 11:04 | Outpatient (BNV) | payer MEDICARE, BC, SELFPAY | PROVIDERS: PCP Internal Medicine; Visit Provider Internal Medicine | DX: I47.1 Supraventricular tachycardia (principal) | CPT/HCPCS: 93244; 93306 ==

== ENCOUNTER 2023-08-16 08:19 | Outpatient (AMB) | payer MEDICARE, BC, SELFPAY ==
[2023-08-16 08:24] VITALS: BP 130/72; PULSE 71; BMI 42.4
--- NOTE | 2023-08-16 08:24 | A.OFFVIS_ITS ---
Intake Vital Signs 08/16/23 08:24 Height 5 ft Weight 217 lb 6.012 oz BMI 42.4 BP 130/72 Blood Pressure Location Lt brachial Position Sitting Pulse 71 Pulse Source Pulse Oximeter Intake Visit Reasons: 6-8 WEEK FUP AFTER ECHO AND HOLTER Intake Note: 6-8 week f/u echo and holter Clinical Assessment Manager Required: No Allergies Tetanus Vaccines and Toxoid [Tetanus] Allergy (Intermediate, Verified 08/16/23 08:29) SWELLING Medication List - Last Reconciled 08/16/23 by Teresa Shi, RONALDO-C acetaminophen 500 mg PO Q6H PRN atorvastatin 1 tab PO DAILY bimatoprost 0.01% (Lumigan) 1 drp ophthalmic (eye) DAILY brinzolamide 1% (Azopt) 1 drp ophthalmic (eye) BID citalopram 1 tab PO DAILY glucos sul [id number]-kvw-[id number]-C-Mn 550-30-1 mg (Glucosamine Chondroitin) 500 caps PO TID multivitamin 1 tab PO DAILY HPI 6-8 WEEK FUP AFTER ECHO AND HOLTER HPI Details Marizol is a 72-year-old female with past medical history of hyperlipidemia, breast cancer with chemotherapy/radiation 2 years ago who presents for follow-up with report of heart palpitation. Today she reports that she does feel a skip in her chest at times. She can feel a pre sensation in her throat lasting a second and resolving. No chest pain, pressure, exertional symptoms. She has chronic sinus issues. No shortness of breath from her lungs noted. No presyncope, syncope, falls. No PND, orthopnea or edema. Taking meds as directed. Remains active and tolerates ADLs without difficulty. Reports family history of CAD with parents and sister having coronary disease. [facility] Medical History Lichen planus Other and unspecified hyperlipidemia Abnormal Pap smear of cervix H/O coronary angiogram Breast cancer Glaucoma Multiple sclerosis Surgical History History of removal of Port-a-Cath History of lumpectomy of right breast Hx of endoscopy Hx of colonoscopy H/O section Hx of cholecystectomy Family History Family/Other Triple negative malignant neoplasm of breast Paternal Grandfather Colon cancer Maternal Grandfather Colon cancer Brother Heart attack Neuropathy Father Coronary artery disease Mother Coronary artery disease Social History Household Members: Spouse Housing: House Are you a primary personal care worker to a significant other at home: No Do you presently have visiting nurse or other home services: No Alcohol intake: current Alcohol intake frequency: holidays/special occasions only Patient Tobacco Use Status: Never used Tobacco service: No 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 Review of Systems Const All systems reviewed & are unremarkable except as noted in HPI and below ENT Denies dizziness Card Denies chest pain, Denies chest pain at rest, Denies chest pain with activity, Denies rapid heart rate, Denies pedal edema, Denies edema, Denies leg edema, Denies lightheadedness, Denies palpitations, Denies dyspnea, Denies dyspnea on exertion and Denies orthopnea Resp Denies cough, Denies dyspnea and Denies dyspnea on exertion GI Denies hematochezia and Denies change in stool character Musc Denies abnormal gait, Denies limited range of motion, Denies muscle cramps, Denies muscle weakness, Denies numbness, Denies radiating pain into limb, Denies stiffness and Denies tingling Neuro Denies abnormal gait, Denies dizziness, Denies numbness and Denies tingling Endo Denies palpitations Physical Exam Vital Signs: Last Vital Signs Pulse 71 08/16/23 08:24 BP 130/72 08/16/23 08:24 BMI result Body Mass Index 42.4 Const General: cooperative, healthy appearing, comfortable and no acute distress Orientation/consciousness: patient oriented x3 Resp Effort & Inspection: normal respiratory effort Auscultation: clear to auscultation bilaterally, no crackles, no rales, no rho nchi and no wheezes Cardio Jugular venous distension: no JVD Rate: regular rate Rhythm: regular rhythm Heart sounds: S1 normal heart sound present, S2 normal heart sound present, no murmurs and no rubs Neuro General: patient oriented x3 Extrem General: Yes normal to inspection, No no pedal edema and No calf tenderness Psych Appearance: grossly normal Mental Status: mental status grossly normal Speech and movement: Normal speech and movement present Assessment & Plan Assessment & Plan (1) Palpitation: Code(s): R00.2 - Palpitations Plan: Reports of heart palpitations which feel like rapid heartbeat lasting a few seconds and going back to normal. Also a brief sensation in her throat that last second and resolved. This can happen a few times each month and causing her concern. No dizziness, presyncope, syncope. EKG done last visit showing normal sinus rhythm, heart rate 84. Holter monitor done 07/17/2023 for 7 days shows s inus rhythm with average heart rate 71, heart rate range 55 to 135, rare SVE and VE. Echocardiogram done 07/17/2023 showing EF 68%, no valve abnormalities and no regional wall motion abnormalities. Test results reviewed with her. Her symptoms are likely related to extrasystoles. Reviewed reduction of caffeinated beverages, good hydration, getting adequate rest. No indication for med management at this time (2) Breast cancer, right: Comment: She is doing well with regard to her history of right breast carcinoma. Code(s): C50.911 - Malignant neoplasm of unspecified site of right female breast Plan: History of breast CA with prior chemo and radiation. Currently reports doing well. (3) Family history of coronary arteriosclerosis: Code(s): Z82.49 - Family history of ischemic heart disease and other diseases of the circulatory system Plan: Patient reports family history of CAD in her father, mother and sister. She has no known history of coronary artery disease herself. She has no reports of anginal sounding symptoms. She has undergone breast cancer treatment with chemo and radiation approximately 2 years ago. Recent echocardiogram is not normal. Discussed doing screening stress test at this time however she does not feel it is necessary. Spent time reviewing signs and symptoms of angina. She will notify us if she has any concerning symptoms. Cardiology follow-up in 1 year, sooner if needed Coding Level of Care Code Est Pt Level 3 (16903) Diagnoses Palpitation R00.2 Breast cancer, right C50.911 Family history of coronary arteriosclerosis Z82.49 Time Spent (min) 24
== END 2023-08-16 08:54 | disposition home or self-care (01) ==
PROVIDERS: PCP Internal Medicine; Visit Provider Nurse Practitioner Family
DX: R00.2 Palpitations (principal); C50.911 Malignant neoplasm of unspecified site of right female breast; Z82.49 Family history of ischemic heart disease and other diseases of the circulatory system
CPT/HCPCS: 99213

== ENCOUNTER → 2023-08-16 08:19 | Outpatient (BNVA) | payer MEDICARE, BC, SELFPAY | PROVIDERS: PCP Internal Medicine; Visit Provider Nurse Practitioner Family | DX: R00.2 Palpitations (principal); Z85.3 Personal history of malignant neoplasm of breast; Z92.21 Personal history of antineoplastic chemotherapy; Z92.3 Personal history of irradiation; Z82.49 Family history of ischemic heart disease and other diseases of the circulatory system | CPT/HCPCS: 99212 ==

== ENCOUNTER 2023-10-16 10:49 | Outpatient (REF) | payer MEDICARE, BC, SELFPAY ==
--- NOTE | ~2023-10-16 | US_ITS ---
EXAMINATION: MM SCREENING DIGITAL BREAST TOMOSYNTHESIS, BILATERAL US BREAST COMPLETE, BILATERAL MAMMOGRAPHY: CLINICAL INFORMATION: Screening. Asymptomatic. History of invasive ductal carcinoma right breast 2018. Patient complaining of right breast pain superiorly, and palpable area of concern left breast 6-7 o'clock, posterior one third. COMPARISON: Mammography: 10/10/2022, 10/10/2021, February 2021, 10/21/2020, 09/19/2019. TECHNIQUE: Digital breast tomosynthesis is performed in both the craniocaudal and mediolateral oblique views along with computer-aided detection (CAD). Synthesized 2D images are generated from the tomosynthesis. FINDINGS: There are scattered areas of fibroglandular density (ACR BI-RADS breast composition Category b). Right breast demonstrates a scar marker along the lateral aspect at the region of surgery. There are a few scattered stable and unchanged rounded calcifications in both breasts. No suspicious calcifications seen. No correlate to the region of breast pain in the superior right breast is seen on mammography, nor is there a correlate to the palpable focus of abnormality in the inferior left breast, posterior one third. Nodular asymmetric densities left breast are stable and unchanged. Parenchymal pattern is unchanged from prior exams. ULTRASOUND: CLINICAL INFORMATION: Right breast pain superiorly. Left breast palpable abnormality inferiorly. COMPARISON: None TECHNIQUE: High-resolution grayscale sonography of all four quadrants and the retroareolar region of each breast, as well as the axillary region was performed using a high frequency linear transducer. Selected archived documentation. FINDINGS: RIGHT BREAST: There is a mixture of fatty and fibroglandular tissue. No suspicious solid or cystic lesion or area of suspicious echotexture is demonstrated. There is no ultrasonographic correlate to the region of breast pain superior aspect. LEFT BREAST: There is a mixture of fatty and fibroglandular tissue. No suspicious solid or cystic lesion or area of suspicious echotexture is demonstrated. No ultrasonographic correlate to the region of palpable concern inferior left breast. US/US breast BI limited mamm only IMPRESSION: No mammographic evidence of malignancy in either breast. No mammographic or sonographic correlate to the region of breast pain in the right breast for the palpable area of concern in the inferior left breast. Recommend clinical management. Otherwise, recommend routine annual screening. OVERALL ASSESSMENT: Mammography: BI-RADS 2 - Benign Findings Ultrasound: BI-RADS 2 - Benign Findings RECOMMENDATION: 1. Patient should be managed based on the clinical impression. 2. Otherwise, routine annual screening mammography. 1 year F/U This examination should not preclude the clinical evaluation of a suspicious palpable abnormality. This patient's information was entered into a reminder system with a target due date for their next mammogram.
== END 2023-10-16 10:50 | disposition home or self-care (01) ==
LOC: HO.MAMMO 10:49
PROVIDERS: PCP Internal Medicine; Visit Provider Obstetrics & Gynecology
DX: N64.4 Mastodynia (principal)
CPT/HCPCS: 76642; 77062; 77066

== ENCOUNTER → 2023-10-16 11:00 | Outpatient (BNV) | payer MEDICARE, BC, SELFPAY | PROVIDERS: PCP Internal Medicine; Visit Provider Radiology Diagnostic Radiology | DX: R92.1 Mammographic calcification found on diagnostic imaging of breast (principal); R92.313 Mammographic fatty tissue density, bilateral breasts; R92.323 Mammographic fibroglandular density, bilateral breasts | CPT/HCPCS: 76642; 77062; 77066; G0279 ==

== ENCOUNTER 2023-11-22 07:27 | Outpatient (REF) | payer MEDICARE, BC, SELFPAY | END 2023-11-22 07:28 | disposition home or self-care (01) | LOC: HO.CT 07:27 | PROVIDERS: PCP Internal Medicine; Visit Provider Otolaryngology | DX: J33.0 Polyp of nasal cavity (principal) | CPT/HCPCS: 70486 ==

== ENCOUNTER 2024-08-05 08:03 | Outpatient (AMB) | payer MEDICARE, BC, SELFPAY ==
--- NOTE | 2024-08-05 08:15 | MHC.OFFVIS ---
Vital Signs 08/05/24 08:16 Height 5 ft 5 in Weight 204 lb BMI 33.9 Intake Visit Reasons: New Prob - B/L knee pain Intake Note: Marizol is a 74 year old female who presents today for a evaluation of bilateral knee pain. Patient reports that her right knee is worse. She mentions she does not use the topical cream she was given. She is taking Tylenol arthritis with some relief. She is open to discuss a cortisone injection today. Allergies Tetanus Vaccines and Toxoid [Tetanus] Allergy (Intermediate, Verified 08/05/24 08:19) SWELLING HPI HPI New Prob - B/L knee pain: Details: 74-year-old right hand dominant female who presents in the office today for an evaluation of bilateral knee pain. I last saw the patient in the office for right knee pain on 05/17/22 when she was prescribed a compound cream. The use of cannabis cream for the joint was also discussed. ? ? While in the office today, the patient reports her right knee pain has increased. She reports she does not use the topical cream she was given. She confirms the use of Tylenol arthritis with mild relief. She is interested in discussing cortisone injections. ? ? Patient was diagnosed with breast cancer in 2019.? [facility] Medical History Lichen planus Other and unspecified hyperlipidemia Abnormal Pap smear of cervix H/O coronary angiogram Breast cancer Glaucoma Multiple sclerosis Surgical History History of removal of Port-a-Cath History of lumpectomy of right breast Hx of endoscopy Hx of colonoscopy H/O section Hx of cholecystectomy Family History Family/Other Triple negative malignant neoplasm of breast Paternal Grandfather Colon cancer Maternal Grandfather Colon cancer Brother Heart attack Neuropathy Father Coronary artery disease Mother Coronary artery disease Social History Household Members: Spouse Housing: House Are you a primary lawn care technician to a significant other at home: No Do you presently have visiting nurse or other home services: No Alcohol intake: current Alcohol intake frequency: holidays/special occasions only Patient Tobacco Use Status: Never used Tobacco service: No 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 No ecchymosis, erythema, or joint effusion. No tenderness to palpation along the medial or lateral joint lines. Full knee extension and flexion. Crepitus is felt with ROM. NVI.? Office Procedures Joint Injection/Aspiration Joint Injection/Aspiration Primary Site: right knee Secondary Site: left knee Prep: site was prepped using aseptic technique, ethochloride spray was applied and injection warnings given Injected: 80 mg of, DepoMedrol, with 8 mL of (2% plain lido ) and in the joint Approach Used: anterolateral Procedure: The patient tolerated the procedure well, but had some pain with the injection and there was some relief with the local anesthesia Coding 75221 - Large joint Procedure code (CPT) selection complete Assessment & Plan Assessment & Plan (1) Osteoarthritis of right knee: Code(s): M17.11 - Unilateral primary osteoarthritis, right knee Category: Medical (2) Osteoarthritis of left knee: Code(s): M17.12 - Unilateral primary osteoarthritis, left knee Category: Medical Plan Ms. Escalante is a 74-year-old right hand dominant female who presents in the office today for an evaluation of bilateral knee pain. I last saw the patient in the office for right knee pain on 05/17/22 when she was prescribed a compound cream. The use of cannabis cream for the joint was also discussed. ? ? While in the office today, the patient reports her right knee pain has increased. She reports she does not use the topical cream she was given. She confirms the use of Tylenol arthritis with mild relief. She is interested in discussing cortisone injections. ? ? Patient was diagnosed with breast cancer in 2019.? ? The patient was offered a cortisone injection in the bilateral knees with 80 mg of Depo-Medrol. The patient was explained the risks, benefits, and alternatives to receiving this injection. After receiving consent for the injection, the patient had the procedure done while in the office today. The patient tolerated the procedure well with no complications.? ? Follow-up will be PRN, or sooner if needed.? Patient Instructions: Scribed by Karina Carney medical superintendent, for Ama Heath PA-C on 08/05/2024 at 8:10 am, EST.? Coding Level of Care Code New Pt Level 3 (43725) Diagnoses Osteoarthritis of right knee M17.11 Osteoarthritis of left knee M17.12 CPT Codes Coding - 24121 Large joint: 84693 - Large joint ([id number])
[2024-08-05 08:16] VITALS: BMI 33.9
== END 2024-08-05 08:45 | disposition home or self-care (01) ==
PROVIDERS: PCP Internal Medicine; Visit Provider Physician Assistant
DX: M17.0 Bilateral primary osteoarthritis of knee (principal)
CPT/HCPCS: 20610; 99213

== ENCOUNTER → 2024-08-05 08:03 | Outpatient (BNVA) | payer MEDICARE, BC, SELFPAY | PROVIDERS: PCP Internal Medicine; Visit Provider Physician Assistant | DX: M17.0 Bilateral primary osteoarthritis of knee (principal) | CPT/HCPCS: 20610; 99212; J1010 ==

== ENCOUNTER 2024-08-14 08:18 | Outpatient (AMB) | payer MEDICARE, BC, SELFPAY ==
--- NOTE | 2024-08-14 08:21 | A.OFFVIS_ITS ---
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 Required: No Allergies Tetanus Vaccines and Toxoid [Tetanus] Allergy (Intermediate, Verified 08/14/24 08:25) SWELLING Medication List - Last Reconciled 08/14/24 by Teresa Shi, REFRIGERATION SPECIALIST-C acetaminophen 500 mg PO Q6H PRN atorvastatin 1 tab PO DAILY bimatoprost 0.01% (Lumigan) 1 drp ophthalmic (eye) DAILY brinzolamide 1% (Azopt) 1 drp ophthalmic (eye) BID citalopram 1 tab PO DAILY glucos sul [id number]-tijzn-C-Mn 550-30-1 mg (Glucosamine Chondroitin) 1 cap PO DAILY multivitamin 1 tab PO DAILY HPI HPI 1 year fu/Preop colonoscopy: Details: Marizol is a 74-year-old female with past medical history of hyperlipidemia, breast cancer with chemotherapy/radiation 3 years ago, heart palpitations who presents for follow-up. Today she reports that she still can feel a skip in her chest at times. She can feel a pre sensation in her throat lasting a second and resolving. The symptom went away for awhile and recently she has had a reoccurrence. She is not overly bothered by this symptom. She has had no sustained rapid or irregular heart rates. No chest discomfort at rest or with activity. No shortness of breath from her lungs noted. No presyncope, syncope, falls. No PND, orthopnea or edema. Taking meds as directed. Remains active and tolerates ADLs, ho usework and stairs without reported difficulty. Reports family history of CAD with parents and sister having coronary disease. [facility] Medical History Lichen planus Other and unspecified hyperlipidemia Abnormal Pap smear of cervix H/O coronary angiogram Breast cancer Glaucoma Multiple sclerosis Surgical History History of removal of Port-a-Cath History of lumpectomy of right breast Hx of endoscopy Hx of colonoscopy H/O section Hx of cholecystectomy Family History Family/Other Triple negative malignant neoplasm of breast Paternal Grandfather Colon cancer Maternal Grandfather Colon cancer Brother Heart attack Neuropathy Father Coronary artery disease Mother Coronary artery disease Social History Household Members: Spouse Housing: House Are you a primary child care provider to a significant other at home: No Do you presently have visiting nurse or other home services: No Alcohol intake: current Alcohol intake frequency: holidays/special occasions only Patient Tobacco Use Status: Never used Tobacco service: No 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 Review of Systems Const All systems reviewed & are unremarkable except as noted in HPI and below ENT Denies dizziness Card Denies chest pain, Denies chest pain at rest, Denies chest pain with activity, Denies rapid heart rate, Denies pedal edema, Denies edema, Denies leg edema, Denies lightheadedness, Denies palpitations, Denies dyspnea, Denies dyspnea on exertion and Denies orthopnea Resp Denies cough, Denies dyspnea and Denies dyspnea on exertion GI Denies hematochezia and Denies change in stool character Musc Denies abnormal gait, Denies limited range of motion, Denies muscle cramps, Denies muscle weakness, Denies numbness, Denies radiating pain into limb, Denies stiffness and Denies tingling Neuro Denies abnormal gait, Denies dizziness, Denies numbness and Denies tingling Endo Denies palpitations Physical Exam Vital Signs: Last Vital Signs Pulse 69 08/14/24 08:23 BP 134/82 08/14/24 08:23 BMI result Body Mass Index 33.2 Const General: cooperative, healthy appearing, comfortable and no acute distress Orientation/consciousness: patient oriented x3 Resp Effort & Inspection: normal respiratory effort Auscultation: clear to auscultation bilaterally, no crackles, no rales, no rho nchi and no wheezes Cardio Jugular venous distension: no JVD Rate: regular rate Rhythm: regular rhythm Heart sounds: S1 normal heart sound present, S2 normal heart sound present, no murmurs and no rubs Neuro General: patient oriented x3 Extrem General: Yes normal to inspection, No no pedal edema and No calf tenderness Psych Appearance: grossly normal Mental Status: mental status grossly normal Speech and movement: Normal speech and movement present Office Procedures EKG Details: Today, read by me, normal sinus rhythm, no acute ST or T-wave abnormalities, rate 69, QTC 424 milliseconds 70333-Vqbpatifttagpwboh, Complete Assessment & Plan Assessment & Plan (1) Palpitation: Code(s): R00.2 - Palpitations Category: Medical Plan: Reports of heart palpitations which feel like rapid heartbeat and feeling in her throat lasting 1-2 seconds and resolving. This symptom had been present then went away for several months and she has noticed it again more recently. No sustained rapid or irregular rates. No dizziness, presyncope, syncope. Holter monitor done 07/17/2023 for 7 days shows sinus rhythm with average heart rate 71, heart rate range 55 to 135, rare SVE and VE. Echocardiogram done 07/17/2023 showing EF 68%, no valve abnormalities and no regional wall motion abnormalities. Her symptoms are likely related to extrasystoles. She told me she has been eating large amounts of cinnamon candies which correlates with her recurrent symptoms. Reviewed reduction of sugar, caffeinated beverages, good hydration, getting adequate rest. No indication for med management at this time. If she has more prolonged heart palpitations will plan for a repeat Holter monitor. Cardiology follow-up in 1 year, sooner if needed (2) Breast cancer, right: Comment: She is doing well with regard to her history of right breast carcinoma. Code(s): C50.911 - Malignant neoplasm of unspecified site of right female breast Category: Medical Plan: History of breast CA with prior chemo and radiation. Currently reports doing well. No anginal sounding symptoms. (3) Family history of coronary arteriosclerosis: Code(s): Z82.49 - Family history of ischemic heart disease and other diseases of the circulatory system Category: Medical Plan: Patient reports family history of CAD in her father, mother and sister. She has no known history of coronary artery disease herself. She has no reports of anginal sounding symptoms. She has undergone breast cancer treatment with chemo and radiation approximately 3 years ago. Prior echocardiogram is normal. She has good activity tolerance with the exception of knee pain. Spent time reviewing signs and symptoms of angina. She will notify us if she has any concerning symptoms. (4) Preop cardiovascular exam: Code(s): Z01.810 - Encounter for preprocedural cardiovascular examination Category: Medical Plan: Preop for colonoscopy, scheduled for 10/15/2024. She can proceed with low cardiac risk. No known history of CAD or anginal symptoms. Activity level greater than 4 Mets based on her description. EKG done today showing normal sinus rhythm with no acute ST or T-wave abnormalities, rate 69. Call/consult Cardiology if needed. Plan Time spent on chart review, documentation, interview and assessment Coding Level of Care Code Est Pt Level 4 (72102) Diagnoses Palpitation R00.2 Breast cancer, right C50.911 Family history of coronary arteriosclerosis Z82.49 Preop cardiovascular exam Z01.810 CPT Codes EKG - CPT: 89294-Xthfbynndnweohzpj, Complete ([id number]) Time Spent (min) 28
[2024-08-14 08:23] VITALS: BP 134/82; PULSE 69; BMI 33.2
== END 2024-08-14 09:06 | disposition home or self-care (01) ==
PROVIDERS: PCP Internal Medicine; Visit Provider Nurse Practitioner Family
DX: R00.2 Palpitations (principal); C50.911 Malignant neoplasm of unspecified site of right female breast; Z82.49 Family history of ischemic heart disease and other diseases of the circulatory system; Z01.810 Encounter for preprocedural cardiovascular examination
CPT/HCPCS: 93010; 99214

== ENCOUNTER → 2024-08-14 08:18 | Outpatient (BNVA) | payer MEDICARE, BC, SELFPAY | PROVIDERS: PCP Internal Medicine; Visit Provider Nurse Practitioner Family | DX: Z01.810 Encounter for preprocedural cardiovascular examination (principal); E78.5 Hyperlipidemia, unspecified; R00.2 Palpitations; C50.911 Malignant neoplasm of unspecified site of right female breast; Z82.49 Family history of ischemic heart disease and other diseases of the circulatory system | CPT/HCPCS: 93005; 99212 ==

== ENCOUNTER 2024-10-15 07:22 | Day surgery (SDC) | payer MEDICARE, BC, SELFPAY ==
[2024-10-13 11:36] VITALS: BMI 32.6
[2024-10-15 07:35] VITALS: BMI 32.8
[2024-10-15] MEDS: Lactated Ringers 1,000 ML 100 ML IVCONT (07:47)
[2024-10-15 07:56] VITALS: BP 130/59; PULSE 86; RESP 18; TEMP 36.6; O2SAT 97
--- NOTE | 2024-10-15 08:05 | P.CONAN_ITS ---
Documented by User: Heidi Branch NP 10/14/24 09:43 HPI - Anesthesia Eval Consult details Narrative: 74yo F for Colonoscopy [place] [facility] [place] [facility] [place]. Optimized for procedure per 07/2024 office visit [facility] [place] Active Problems Active Problems: All Active Problems Preop cardiovascular exam (Acute) Osteoarthritis of left knee (Acute) Family history of coronary arteriosclerosis (Acute) Palpitation (Acute) Osteoarthritis of right knee (Acute) Invasive ductal carcinoma of right breast (Acute) Chemotherapy follow-up examination (Acute) Port-A-Cath in place (Acute) Breast cancer screening by mammogram (Acute) Breast cancer, right (Chronic) Other and unspecified hyperlipidemia (Acute) Past Medical History Medical History History of right breast cancer Hx of radiation therapy History of chemotherapy Hyperlipidemia Anxiety Pancreatitis Lumbosacral disc disease Lichen planus Other and unspecified hyperlipidemia Abnormal Pap smear of cervix H/O coronary angiogram Breast cancer Glaucoma Multiple sclerosis Family History Family History Family/Other Triple negative malignant neoplasm of breast Paternal Grandfather Colon cancer Maternal Grandfather Colon cancer Brother Heart attack Neuropathy Father Coronary artery disease Mother Coronary artery disease Surgical History Surgical History Hx of cardiac catheterization History of ERCP History of removal of Port-a-Cath History of lumpectomy of right breast Hx of endoscopy Hx of colonoscopy H/O section Hx of cholecystectomy Social History Social History Household Members: Spouse Housing: House Are you a primary patient care associate to a significant other at home: No Do you presently have visiting nurse or other home services: No Alcohol intake: current Alcohol intake frequency: holidays/special occasions only Patient Tobacco Use Status: Never used Tobacco Have you been hit, kicked, punched, or otherwise hurt by someone within the past year? 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 Allergies Allergy/AdvReac Type Severity Reaction Status Date / Time Tetanus Vaccines and Toxoid Allergy Intermediate SWELLING Verified 10/15/24 07:41 [Tetanus] Home Medications ?Medication ?Instructions ?Recorded ?Confirmed ?Last Taken ?Type atorvastatin 20 mg tablet 1 tab PO DAILY 10/05/20 10/13/24 Unknown History bimatoprost 0.01 % eye drops 1 drp ophthalmic (eye) DAILY 10/05/20 10/13/24 Unknown History (Lumigan) citalopram 20 mg tablet 1 tab PO DAILY 10/05/20 10/13/24 Unknown History brinzolamide 1 % eye 1 drp ophthalmic (eye) BID 10/19/20 10/13/24 Unknown History drops,suspension (Azopt) acetaminophen 650 mg 1,300 mg PO Q8H 10/13/24 10/13/24 Unknown History tablet,extended release latanoprost 0.005 % eye drops 1 drp ophthalmic (eye) BEDTIME 10/13/24 10/13/24 Unknown History Exam Height,Weight and Vital Signs: Height 5 ft 6 in Weight 91.626 kg Narrative Narrative: Holter monitor done 07/17/2023 for 7 days shows sinus rhythm with average heart rate 71, heart rate range 55 to 135, rare SVE and VE. Echocardiogram done 07/17/2023 showing EF 68%, no valve abnormalities and no regional wall motion abnormalities. Her symptoms are likely related to extrasystoles. Assessment and Plan Assessment Anesthesia Assessment: Chart Reviewed Documented by User: Virginie Escoto DO 10/15/24 08:10 HPI - Anesthesia Eval Consult details Narrative: 74yo F for Colonoscopy [place] [facility] [place] [facility] [place]. Optimized for procedure per 07/2024 office visit [facility] [place] Past Medical History Medical History History of right breast cancer Hx of radiation therapy History of chemotherapy Hyperlipidemia Anxiety Pancreatitis Lumbosacral disc disease Lichen planus Other and unspecified hyperlipidemia Abnormal Pap smear of cervix H/O coronary angiogram Breast cancer Glaucoma Multiple sclerosis Family History Family History Family/Other Triple negative malignant neoplasm of breast Paternal Grandfather Colon cancer Maternal Grandfather Colon cancer Brother Heart attack Neuropathy Father Coronary artery disease Mother Coronary artery disease Family history of problems with anesthesia: No Surgical History Surgical History Hx of cardiac catheterization History of ERCP History of removal of Port-a-Cath History of lumpectomy of right breast Hx of endoscopy Hx of colonoscopy H/O section Hx of cholecystectomy History of Problems with Anesthesia: No Social History Social History Household Members: Spouse Housing: House Are you a primary patient care associate to a significant other at home: No Do you presently have visiting nurse or other home services: No Alcohol intake: current Alcohol intake frequency: holidays/special occasions only Patient Tobacco Use Status: Never used Tobacco Have you been hit, kicked, punched, or otherwise hurt by someone within the past year? 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 Allergies Allergy/AdvReac Type Severity Reaction Status Date / Time Tetanus Vaccines and Toxoid Allergy Intermediate SWELLING Verified 10/15/24 07:41 [Tetanus] Home Medications ?Medication ?Instructions ?Recorded ?Confirmed ?Last Taken ?Type atorvastatin 20 mg tablet 1 tab PO DAILY 10/05/20 10/13/24 Unknown History bimatoprost 0.01 % eye drops 1 drp ophthalmic (eye) DAILY 10/05/20 10/13/24 Unknown History (Lumigan) citalopram 20 mg tablet 1 tab PO DAILY 10/05/20 10/13/24 Unknown History brinzolamide 1 % eye 1 drp ophthalmic (eye) BID 10/19/20 10/13/24 Unknown History drops,suspension (Azopt) acetaminophen 650 mg 1,300 mg PO Q8H 10/13/24 10/13/24 Unknown History tablet,extended release latanoprost 0.005 % eye drops 1 drp ophthalmic (eye) BEDTIME 10/13/24 10/13/24 Unknown History Exam Exam Date and Time: 10/15/24 0805 Height,Weight and Vital Signs: Height 5 ft 6 in Weight 91.626 kg Vital Signs Temperature 97.9 F 10/15/24 07:56 Pulse Rate 86 10/15/24 07:56 Respiratory Rate 18 10/15/24 07:56 Blood Pressure 130/59 L 10/15/24 07:56 Pulse Oximetry 97 10/15/24 07:56 Oxygen Delivery Method Room Air 10/15/24 07:56 Temperature 97.9 F 10/15/24 07:56 Pulse Rate 86 10/15/24 07:56 Respiratory Rate 18 10/15/24 07:56 Blood Pressure 130/59 L 10/15/24 07:56 Pulse Oximetry 97 10/15/24 07:56 Oxygen Delivery Method Room Air 10/15/24 07:56 Airway Mallampati Class: II (small mouth opening) TM Dist: >3cm Neck ROM: Full Loose/Missing/Broken Teeth: No (patient denied any loose or broken teeth) Heart: S1S2 Lungs: CTAB Assessment and Plan Assessment Anesthesia Assessment: Anesthesia Plan Discussed and Chart Reviewed Final Anesthetic Review Family History of Problems with Anesthesia: No History of Problems with Anesthesia: No NPO: Yes ASA Class: III Final Preanesthetic Review: No Changes in Pt Med Stat, Meds/Allgs Chart Reviewed, Consent Obtained/Reviewed and Anes Risks/Benef Reviewed Patient Risk: Low Procedure Risk: Low Anesthetic Plan Anesthetic Plan: MAC: and Agree w/ Assess. and Plan Disposition: Standard PACU
[2024-10-15 09:37] VITALS: BP 106/52; PULSE 74; RESP 16; TEMP 36.1; O2SAT 99
--- NOTE | 2024-10-15 09:41 | PM.OP ---
Brief Operative Note Date of Service: 10/15/24 Pre-op diagnosis: Screening Post-op diagnosis: other (Diverticulosis) Procedure: Colonoscopy to the cecum Surgeon: Aneudy Conway MD Anesthesia: MAC Was an Administrative Assistant Data Entry used for this Procedure?: No Estimated blood loss (mL): 0 Pathology: none sent Condition: stable Disposition: PACU
[2024-10-15 09:52] VITALS: BP 113/49; PULSE 68; RESP 16; TEMP 36.1; O2SAT 99
--- NOTE | 2024-10-15 10:15 | OP_ITS ---
DATE OF SERVICE: 10/15/2024 SURGEON: Aneudy Conway MD INDICATIONS: The patient presents for evaluation of colorectal cancer screening. Full consent obtained from her for this, including risks of bleeding and perforation. PREOPERATIVE DIAGNOSIS: Colorectal cancer screening. POSTOPERATIVE DIAGNOSIS: Colorectal cancer screening, diverticulosis and internal hemorrhoids. PROCEDURE PERFORMED: Colonoscopy to cecum. ESTIMATED BLOOD LOSS: COMPLICATIONS: ANESTHESIA: Medication used, monitored anesthesia care. ASSISTANTS: SPECIMENS: DESCRIPTION OF PROCEDURE: The patient was placed in left lateral decubitus position. The digital rectal exam revealed no abnormalities. The Olympus video pediatric colonoscope was entered into the rectum and advanced easily to the cecum. Once in the cecum, I did identify normal-appearing cecal pouch with appendiceal orifice and a normal-appearing ileocecal valve. The entire cecum and ileocecal valve appeared normal. The scope was slowly withdrawn assessing all mucosal surfaces carefully. Preparation was excellent. I did not visualize any sign of polyps, colitis, or angiodysplasia. There was a mild amount of sigmoid diverticulosis. In the rectum, scope was retroflexed visualizing internal hemorrhoids, but no other pathology. The rectal mucosa appeared normal. Scope was straightened and withdrawn. She tolerated the procedure well and was returned to recovery area in stable condition. IMPRESSION: 1. Diverticulosis. 2. Internal hemorrhoids. PLAN: Given today's negative colonoscopy, 2 previously negative colonoscopies, her age, and no family history of first-degree relatives with colorectal cancer, I advised her that I do not think she will need any further screening colonoscopies. She will otherwise see me on a p.r.n. basis. MD TIMO Downey/LILIA / [phone]
== END 2024-10-15 10:17 | disposition home or self-care (01) ==
PROVIDERS: PCP Internal Medicine; Visit Provider Internal Medicine
PROC: 0DJD8ZZ Inspection of Lower Intestinal Tract, Via Natural or Artificial Opening Endoscopic (ICD-10-PCS; CPT 45378; principal; 2024-10-15 08:30)
DX: Z12.11 Encounter for screening for malignant neoplasm of colon (principal); K57.30 Diverticulosis of large intestine without perforation or abscess without bleeding; K64.8 Other hemorrhoids; G35 Multiple sclerosis; E78.5 Hyperlipidemia, unspecified; H40.9 Unspecified glaucoma; Z85.3 Personal history of malignant neoplasm of breast; Z92.21 Personal history of antineoplastic chemotherapy; Z92.3 Personal history of irradiation; Z79.899 Other long term (current) drug therapy; Z88.7 Allergy status to serum and vaccine; Z90.49 Acquired absence of other specified parts of digestive tract
CPT/HCPCS: G0121; J2003; J2704

== ENCOUNTER 2024-10-20 07:21 | Outpatient (REF) | payer MEDICARE, BC, SELFPAY ==
--- NOTE | ~2024-10-20 | MM_ITS ---
EXAMINATION: MM SCREENING DIGITAL BREAST TOMOSYNTHESIS, BILATERAL CLINICAL INFORMATION: Screening. Asymptomatic. History of right breast cancer status post conservation therapy. COMPARISON: Mammography: Comparison is made with available priors TECHNIQUE: Digital breast mammography with tomosynthesis is performed in both the craniocaudal and mediolateral oblique views along with computer-aided detection (CAD). FINDINGS: There are scattered areas of fibroglandular density (ACR BI-RADS breast composition Category b). Right postsurgical changes are stable. There are no significant masses, abnormal calcifications, or other abnormalities. MM/MM tomosynthesis screening BI IMPRESSION: No mammographic evidence of malignancy. ASSESSMENT: BI-RADS BI-RADS 2 - Benign Findings RECOMMENDATION: Routine annual mammography screening. 1 year F/U This examination should not preclude the clinical evaluation of a suspicious palpable abnormality. This patient's information was entered into a reminder system with a target due date for their next mammogram. Electronically signed by: Lizett Felder DO 10/23/2024 09:04 AM PAUL
== END 2024-10-20 07:22 | disposition home or self-care (01) ==
LOC: HO.MAMMO 07:21
PROVIDERS: PCP Internal Medicine; Visit Provider Internal Medicine
DX: Z12.31 Encounter for screening mammogram for malignant neoplasm of breast (principal)
CPT/HCPCS: 77063; 77067

== ENCOUNTER → 2024-10-20 07:30 | Outpatient (BNV) | payer MEDICARE, BC, SELFPAY | PROVIDERS: PCP Internal Medicine; Visit Provider Internal Medicine | DX: Z12.31 Encounter for screening mammogram for malignant neoplasm of breast (principal) | CPT/HCPCS: 77063; 77067 ==

== ENCOUNTER 2025-01-20 09:49 | Outpatient (REF) | payer MEDICARE, BC, SELFPAY ==
--- NOTE | ~2025-01-20 | XR_ITS ---
CLINICAL HISTORY: M25.569 - Pain in unspecified knee 3 view left knee Comparison: None Findings: Mild femorotibial joint space narrowing is present. No acute fracture or dislocation is identified. Arterial sclerosis is noted. IMPRESSION: 1. Mild femorotibial joint space narrowing. This document has been electronically signed by: Rachel Watts on 01/23/2025 08:09:40
--- NOTE | ~2025-01-20 | XR_ITS ---
CLINICAL HISTORY: M25.569 - Pain in unspecified knee 3 view right knee Comparison: None Findings: Mild to moderate medial femorotibial joint space narrowing is present. No acute fracture or dislocation is identified. Soft tissue structures appear within normal limits. IMPRESSION: 1. Mild to moderate medial femorotibial joint space narrowing. This document has been electronically signed by: Rachel Watts on 01/23/2025 08:41:44
--- OUTSIDE RECORDS SUMMARY | 2025-01-21 11:17 | XMS_ITS ---
Author Organization [facility] Address [address] [place] [address] Care Team Providers Care Senior Account Clerk Name Role Phone Tonny (RETIRED) Aneudy CRAMER Primary Care Provid er Unavailable Aneudy Conway Unavailable [phone] Allergies Allergen (clinical drug ingredient) Drug/Non Drug Allergy documented on EMR Reaction Allergy Type Onset Date Status Tetanus Unknown Drug Allergy Active REASON FOR VISIT Patient presents today for a SCREENING COLON Medications Medication SIG (Take, Route, Frequency, Duration) Notes Start Date End Date Status Latanoprost 0.005 % 1 drop into affected eye in the evening Ophthalmic Once a day Active Brinzolamide 1 % Ophthalmic for 90 Active Tylenol 8 Hour Arthritis Pain 650 MG 2 tablets as needed Orally every 8 hrs Active Atorvastatin Calcium 20mg Active Azopt Active Citalopram Hydrobromide 20mg Active Social History Tobacco Use: Social History Observation Description Date Details (start date - stop date) Never Smoker NA - NA Tobacco Use/Smoking Question Answer Notes Patient is a nonsmoker Alcohol Screen Question Answer Notes Did you have a drink containing alcohol in the p ast year? No Points 0 Interpretation Negative Section Notes: Nonsmoker;no sig alcohol Problems Problem Type SNOMED Code ICD Code Onset Dates Problem Status W/U Status Risk Notes Problem Colon cancer screening (382375621) Colon cancer screening (Z12.11) Active confirmed Problem Pre-procedure evaluation check (266770223) Encounter for other preprocedural examination (Z01.818) Active confirmed Vital Signs Blood pressure systolic 00 mm Hg 07/15/20 24 Blood pressure diastolic 00 mm Hg 024 Height 66 in 07/15/2024 Weight 202 lbs 07/15/2024 BMI 32.60 kg/m2 07/15/2024 Encounters Encounter Location Date Provider Diagnosis [place] [facility] [address] [place] [address] 07/15/2024 Aneudy Conway Colon cancer screeni ng Z12.11 and Encounter for other preprocedural examination Z01.818 Assessments Encounter Date Diagnosis (ICD Code) Assessment Notes Treatment Notes Treatment Clinical Notes Section Notes 07/15/2024 Colon cancer screening (ICD-10 - Z12.11) Overall, George appears well. Given her age, her good clinical appearance, and her last colonoscopy being Over 10 years ago, I did recommend a followup colonoscopy for further screening purposes. We did review the rationale for that regard to colon cancer prevention. Full consent is obtained for this, including risks of bleeding and perforation. The procedure will be done with monitored anesthesia care. George was comfortable with this plan. Thank you again for allowing me to participate in George's care. I shall continue to keep you advised of her progress. 07/15/2024 Encounter for other preprocedural examination (ICD-10 - Z01.818) Overall, George appears well. Given her age, her good clinical appearance, and her last colonoscopy being Over 10 years ago, I did recommend a followup colonoscopy for further screening purposes. We did review the rationale for that regard to colon cancer prevention. Full consent is obtained for this, including risks of bleeding and perforation. The procedure will be done with monitored anesthesia care. George was comfortable with this plan. Thank you again for allowing me to participate in George's care. I shall continue to keep you advised of her progress. Plan Of Treatment Future Test Test Name Order Date COLONOSCOPY 07/15/2024 Next Appt Details Follow Up: prn, Reason: Progress Notes * HANANE STOCKTONADOB:1950 ( 74 yo F)Acc No.[id number]:07/15/2024 Progress Notes Patient:GEORGE REEVES Provider:?Aneudy Conway MD :1950???Age:74 Y???Sex:Female D ate:07/15/2024 Address:[address] [place], [place] [id number] Pcp:Aneudy Lancaster, DO Subjective: * Chief Complaints: * ???Patient presents today fo r a SCREENING COLON * HPI: ???incontinence:? I saw George in the office today for evaluation of colorectal cancer screening. ?I last saw George in January of 2014, at which time she underwent a screening colonoscopy that was negative for any polyps. She presently feels well from a GI standpoint. She enjoys a good appetite, without any significant heartburn or dysphagia. Her bowel movements have been regular and without any signs of bleeding. She denies abdominal pain, jaundice, nor unintentional weight loss. She denies any known family history of first-degree relatives with colorectal cancer. ?Laboratories from earlier this year revealed a normal CBC, chemistries, and LFTs. * ROS:?General/Constitutional:?Change in appetite?denies.?Chills?denies.?Admits?Fatigue.?Ophthalmologic:?Patient denies? Negative..?ENT:?Patient denies?Negative..?Respiratory:?Patient denies?No coughing/hemoptysis..?Cardiovascular:?Patient denies? No chest pain/orthopnea..?Gastrointestinal:?Comments?See HPI for details.?Genitourinary:?Patient denies? No dysuria/hematuria..?Musculoskeletal:?Patient denies? No specific arthralgias/myalgias..?Skin:?Patient denies?No rash/pruritus..?Neurologic:?Patient denies? No headaches/seizures..?Psychiatric:?Patient denies?Negative..? * Medical History:? * Surgical History:?Laparoscop ic cholecystectomy. with postop ERCP and biliary sphincterotomy in 2000 for a CBD stone C- section Right Breast cancer as above with lumpectomy and neg. lymph nodes * Hospitalization/Major Diagno stic Procedure:?No Hospitalization History. * Family History:?Father: dece ased, diagnosed with Heart disease.?Mother: , diagnosed with Diabetes, Heart disease.?Paternal Grand Father: colon cancer.?Maternal Grand Father: colon cancer.?Siblings: brother and sister, diagnosed with Heart disease.? both grandfathers colon cancer. * Social History:?Tobacco Use:?Tobacco Use/Smoking?Patient is a?nonsmoker.?Drugs/Alcohol:?Alcohol Screen?Did you have a drink containing alcohol in the past year??No,?Points?0,?Interpretation?Negative.?Miscellaneous:?Marital status: . 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 ???Nonsmoker;no sig alcohol. * Medications:?TakingTylenol 8 Hour Arthritis Pain 650 MG Tablet Extended Release 2 tablets as needed Orally every 8 hrsAzopt Citalopram Hydrobromide 20mg Atorvastatin Calcium 20mg Brinzolamide 1 % Suspension Ophthalmic Latanoprost 0.005 % Solution 1 drop into affected eye in the evening Ophthalmic Once a dayTaking Tylenol 8 Hour Arthritis Pain 650 MG Tablet Extended Release 2 tablets as needed Orally every 8 hrsTaking Azopt Taking Citalopram Hydrobromide 20mg Taking Atorvastatin Calcium 20mg Taking Brinzolamide 1 % Suspension Ophthalmic Taking Latanoprost 0.005 % Solution 1 drop into affected eye in the evening Ophthalmic Once a dayDiscontinuedCalcium 500mg B Complex MoviPrep 100 GM Solution Reconstituted as directed Orally as directedMedication List reviewed and reconciled with the patientDiscontinued Calcium 500mg Discontinued B Complex Discontinued MoviPrep 100 GM Solution Reconstituted as directed Orally as directedMedication List reviewed and reconciled with the patient * Allergies:?Tetanusyes[Allerg ies Verified] Objective: * Vitals:?Wt: 202 lbs, Ht: 66 in, BMI:32.60 Index, BP: 00/00 mm Hg. * Examination: ???General Examination: ?GENERAL APPEARANCE:?pleasant, well nourished, well developed, in no acute distress.?EYES:?sclera non-icteric.?ORAL CAVITY:?mucosa moist.?NECK/THYROID:?no cervical lymphadenopathy, neck supple.?SKIN:?nonjaundiced, no spider angiomata..?HEART:?S1, S2 normal.?LUNGS:?clear to auscultation bilaterally.?ABDOMEN:?normal bowel sounds, no guarding or rigidity, no hepatosplenomegaly, no masses palpable, soft, nontender, nondistended..?EXTREMITIES:?no edema.?NEUROLOGIC:?alert and oriented.? Assessment: * Assessment: 1.?Encounter for other prepr ocedural examination - Z01.818 (Primary)?2.?Colon cancer screening - Z12.11? Overall, George appears well. Given her age, her good clinical appearance, and her last colonoscopy being Over 10 years ago, I did recommend a followup colonoscopy for further screening purposes. We did review the rationale for that regard to colon cancer prevention. Full consent is obtained for this, including risks of bleeding and perforation. The procedure will be done with monitored anesthesia care. George was comfortable with this plan. Thank you again for allowing me to participate in George's care. I shall continue to keep you advised of her progress. Plan: * Treatment: * Procedure Codes:? * Preventive Medicine:? ??Counseling:?Care goal follow-up plan:?Above Normal BMI Follow-up?Giving encouragement to exercise,?BMI management provided?Yes.? ??Urinary Incontinence:?Urinary Incontinence?Assessment:?Absent,?Plan of care documented:?No, reason not specified.? ??Screenings:?Fall Risk Screening?Fall Risk Assessment:?No falls in the past year.? * Follow Up:?prn * * Sign off status: Completed true * Provider:?Aneudy Conway MD Date:? 024 Generated for Fransico baez/Faxing/eTransmitting on:?01/21/2025 11:17 AM EST History and Physical Notes * HPI (History of Present Illness) Category Sub-Category Detail Notes Category Not es incontinence I saw George in the office today for evaluation of colorectal cancer screening. I last saw George in January of 2014, at which time she underwent a screening colonoscopy that was negative for any polyps. She presently feels well from a GI standpoint. She enjoys a good appetite, without any significant heartburn or dysphagia. Her bowel movements have been regular and without any signs of bleeding. She denies abdominal pain, jaundice, nor unintentional weight loss. She denies any known family history of first-degree relatives with colorectal cancer. Laboratories from earlier this year revealed a normal CBC, chemistries, and LFTs. Examination Category Sub-Category Detail Notes Category Not es General Examination GENERAL APPEARANCE: pleasant , well nourished, well developed, in no acute distress EYES: sclera non-icteric NECK/THYROID: no cervical lymphade nopathy, neck supple HEART: S1, S2 normal LUNGS: clear to auscultatio n bilaterally ABDOMEN: normal bowel sounds, no guarding or rigidity, no hepatosplenomegaly, no masses palpable, soft, nontender, nondistended. NEUROLOGIC: alert and oriented SKIN: nonjaundiced, no spi maksim angiomata. EXTREMITIES: no edema ORAL CAVITY: mucosa moist
--- OUTSIDE RECORDS SUMMARY | 2025-01-21 11:17 | XMS_ITS | Patient Health Record ---
Author Organization [facility] Address [address] [place] [address] Care Team Providers Care Tobacco Acreage Measurer Name Role Phone Tonny (RETIRED) Aneudy CRAMER Primary Care Provid er Unavailable Aneudy Conway Unavailable [phone] Allergies Allergen (clinical drug ingredient) Drug/Non Drug Allergy documented on EMR Reaction Allergy Type Onset Date Status Tetanus Unknown Drug Allergy Active Reason For Referral No Information Medications Medication SIG (Take, Route, Frequency, Duration) Notes Start Date End Date Status Tylenol 8 Hour Arthritis Pain 650 MG 2 tablets as needed Orally every 8 hrs Active Latanoprost 0.005 % 1 drop into affected eye in the evening Ophthalmic Once a day Active Atorvastatin Calcium 20mg Active Brinzolamide 1 % Ophthalmic for 90 Active Azopt Active Citalopram Hydrobromide 20mg Active Problems Problem Type SNOMED Code ICD Code Onset Dates Problem Status W/U Status Risk Notes Problem Colon cancer screening (918449814) Colon cancer screening (Z12.11) Active confirmed Problem Pre-procedure evaluation check (774626841) Encounter for other preprocedural examination (Z01.818) Active confirmed Problem Diverticular disease of colon (329610014) Diverticulosis of large intestine without perforation or abscess without bleeding (K57.30) Active confirmed Vital Signs Blood pressure diastolic 00 mm Hg 07/15/2024 Height 66 in 07/15/2024 Blood pressure systolic 00 mm Hg 07/15/2024 Weight 202 lbs 07/15/2024 BMI 32.60 kg/m2 07/15/2024 Encounters Encounter Location Date Provider Diagnosis [facility] [address] [place], [place] [phone] 10/15/2024 Aneudy Conway Colon cancer screeni ng Z12.11 ; Diverticulosis of large intestine without perforation or abscess without bleeding K57.30 and Other hemorrhoids K64.8 [facility] [address] [place] [address] 07/15/2024 Aneudy Conway Colon cancer screeni ng Z12.11 and Encounter for other preprocedural examination Z01.818 Assessments Encounter Date Diagnosis (ICD Code) Assessment Notes Treatment Notes Treatment Clinical Notes Section Notes 10/15/2024 Colon cancer screening (ICD-10 - Z12.11) 10/15/2024 Diverticulosis of large intestine without perforation or abscess without bleeding (ICD-10 - K57.30) 07/15/2024 Colon cancer screening (ICD-10 - Z12.11) [...] to keep you advised of her progress. 10/15/2024 Other hemorrhoids (ICD-10 - K64.8) Plan Of Treatment Future Test Test Name Order Date COLONOSCOPY 12/09/2013 COLONOSCOPY 07/15/2024 Insurance Providers Payer Name Payer Address Payer Phone Subscriber Number Group Number Insured Name Patient Relationship to Insured Coverage Start Date Coverage End Date MEDICARE OF [place] [address] [place] [address] [phone] [id number] GEORGE STOCKTON Self - patient is the insured [facility] [address] [place] [address] [id number] GEORGE STOCKTON Self - patient is the insured Medical (General) History Medical History History ICD Code Disc disease-L5/S! Multiple sclerosis Screening colonoscopy in 09/2003 neg exc ept for a hyperplastic polyp History of pancreatitis-she was found to have a dilated pancreatic duct and is S/P ERCP x 2 with pancreatic sphincterotomy and temporary stent in [place] in [address] Jeff Johnson--she has had no recurrent episodes of pancreatitis since then Glaucoma Anxiety Hyperlipidemia Denies PA,DM,CVA,Lung disease,renal dise ase Neg cardiac cath in 2011 Negtive colonoscopy in 01/2014 Right breast cancer 2019 with chemo and XRT--Dr. Martinez; surgery as below Surgical History Surgery Date(Month/Year) Laparoscopic cholecystectomy . with postop ERCP and biliary sphincterotomy in 2000 for a CBD stone C- section Right Breast cancer as above with lumpec imtiaz and neg. lymph nodes
--- OUTSIDE RECORDS SUMMARY | 2025-01-21 11:17 | XMS_ITS ---
Author Organization [facility] Address [address] [place] [address] Care Team Providers Care Intelligence Director Name Role Phone Tonny (RETIRED) Aneudy CRAMER Primary Care Provid er Unavailable Aneudy Conway Unavailable [phone] REASON FOR VISIT screening Problems Problem Type SNOMED Code ICD Code Onset Dates Problem Status W/U Status Risk Notes Problem Diverticular disease of colon (491660889) Diverticulosis of large intestine without perforation or abscess without bleeding (K57.30) Active confirmed Encounters Encounter Location Date Provider Diagnosis [facility] [place] [place] Outpatient [address] [place] [phone] 10/15/2024 Aneudy Conway Colon cancer scree shabana [...] Information Progress Notes * LINDSAY STOCKTON:1950 ( 74 yo F)Acc No.[id number]:10/15/2024 COLON WITH MAC Patient:?GEORGE STOCKTON Provider:?Aneudy Conway MD :1950???Age:74 Y???Sex:Female D ate:10/15/2024 Address:[address] [place] [address] Pcp:Aneudy Lancaster (RETIRE D), DO Subjective: * Chief Complaints: * ???1. Screening. * Medical History:? Objective: * Vitals:? Assessment: * Assessment: 1.?Colon cancer screening - Z12.11 (Primary)???2.?Diverticulosis of large intestine without perforation or abscess without bleeding - K57.30???3.?Other hemorrhoids - K64.8??? Plan: * Treatment: * Procedure Codes:?G0121 COLOR EC CNCR SCR;COLNSCPY NO HI RSK, 0529F INTRVL 3+YRS PTS CLNSCP DOCD, 0528F RCMND FLW-UP 10 YRS DOCD, Modifiers: 1P * * The named appointment provid er may or may not be the originator of this progress note, and it is not deemed complete until electronically signed by the appointment provider. Sign off status: Pending * Provider:?Aneudy Conway MD Date:? 024 Generated for Fransico baez/Bel/eTransmitting on:?01/21/2025 11:17 AM EST
== END 2025-01-20 09:50 | disposition home or self-care (01) ==
LOC: HO.HOSX 09:49
PROVIDERS: Visit Provider Physician Assistant
DX: M25.561 Pain in right knee (principal); M25.562 Pain in left knee; M17.11 Unilateral primary osteoarthritis, right knee; M17.12 Unilateral primary osteoarthritis, left knee
CPT/HCPCS: 20610; 73562; 99212; J1010; J2003

== ENCOUNTER 2025-01-20 10:26 | Outpatient (AMB) | payer MEDICARE, BC, SELFPAY ==
--- NOTE | 2025-01-20 10:40 | MHC.OFFVIS ---
Intake Visit Reasons: OV - B/L knee OA, last inj 08/05/24 Intake Note: Marizol is a 74 year old female who presents today for a follow up of her bilateral knee OA, last injection 08/05/24. Patient reports her last injection gave her 3 - 4 months relief and should would like to repeat. Allergies Tetanus Vaccines and Toxoid [Tetanus] Allergy (Intermediate, Verified 01/20/25 10:45) SWELLING HPI HPI OV - B/L knee OA, last inj 08/05/24: Details: Ms. Escalante is a 74-year-old female who presents to the office today for bilateral knee repeat cortisone injections. Her last cortisone injection was performed on 08/05/2024 gave her about 3-4 months relief. [facility] Medical History (Updated 10/22/24 @ 08:33 by Farideh Martinez MD) History of right breast cancer Hx of radiation therapy History of chemotherapy Hyperlipidemia Anxiety Pancreatitis Lumbosacral disc disease Lichen planus Other and unspecified hyperlipidemia Abnormal Pap smear of cervix H/O coronary angiogram Breast cancer Glaucoma Multiple sclerosis Surgical History (Updated 10/22/24 @ 08:33 by Farideh Martinez MD) Hx of cardiac catheterization History of ERCP History of removal of Port-a-Cath History of lumpectomy of right breast Hx of endoscopy Hx of colonoscopy H/O section Hx of cholecystectomy Family History Family/Other Triple negative malignant neoplasm of breast Paternal Grandfather Colon cancer Maternal Grandfather Colon cancer Brother Heart attack Neuropathy Father Coronary artery disease Mother Coronary artery disease Social History Household Members: Spouse Housing: House Are you a primary ambulatory care coordinator to a significant other at home: No Do you presently have visiting nurse or other home services: No Alcohol intake: current Alcohol intake frequency: holidays/special occasions only Patient Tobacco Use Status: Never used Tobacco service: No 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 No ecchymosis, erythema, or joint effusion. No tenderness to palpation along the medial or lateral joint lines. Full knee extension and flexion. Crepitus is felt with ROM. NVI.? Office Procedures AMB Joint Injection/Aspiration Joint Injection/Aspiration Primary Site: right knee Secondary Site: left knee Prep: site was prepped using aseptic technique, ethochloride spray was applied and injection warnings given Injected: 80 mg of, DepoMedrol and with 8 mL of (2% plain lidocaine) Approach Used: anterolateral Procedure: The patient tolerated the procedure well, but had some pain with the injection and there was some relief with the local anesthesia Coding - Large joint Procedure code (CPT) selection complete Assessment & Plan Assessment & Plan (1) Osteoarthritis of right knee: Code(s): M17.11 - Unilateral primary osteoarthritis, right knee Category: Medical (2) Osteoarthritis of left knee: Code(s): M17.12 - Unilateral primary osteoarthritis, left knee Category: Medical Plan The patient was offered a cortisone injection in bilateral knees with 80 mg of DepoMedrol. The patient was explained the risks, benefits, and alternatives to receiving this injection. After receiving consent for the injection, the patient had the procedure done while in the office today. The patient tolerated the procedure well with no complications. Follow-up will be p.r.n., or sooner if needed Orders: Orders XR knee RT 3V Today M25.569 - Pain in unspecified knee XR knee LT 3V Today M25.569 - Pain in unspecified knee Coding Level of Care Code Est Pt Level 3 (80221) Diagnoses Osteoarthritis of right knee M17.11 Osteoarthritis of left knee M17.12 CPT Codes Coding - Large joint: 11560 - Large joint ([id number])
== END 2025-01-20 10:56 | disposition home or self-care (01) ==
PROVIDERS: PCP Internal Medicine; Visit Provider Physician Assistant
DX: M17.0 Bilateral primary osteoarthritis of knee (principal)
CPT/HCPCS: 20610; 99213

== ENCOUNTER → 2025-01-20 10:27 | Outpatient (BNV) | payer MEDICARE, BC, SELFPAY | PROVIDERS: Visit Provider Radiology Vascular & Interventional Radiology | DX: M25.561 Pain in right knee (principal); M25.562 Pain in left knee | CPT/HCPCS: 73562 ==

== ENCOUNTER 2025-03-16 10:24 | Outpatient (AMB) | payer MEDICARE, BC, SELFPAY ==
[2025-03-16 11:11] VITALS: BP 122/88; PULSE 84; O2SAT 97; BMI 34.5
--- NOTE | 2025-03-16 11:11 | MHC.OFFWIV ---
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 - Swelling was initially observed with isolated toenail fungus, later developing into redness of another toe. - Soaking with Epsom salt was tried, and swelling worsened upon waking, yet remained mostly non-tender. - Past gout episodes noted for significant pain, this does not feel the same - Family history raises concerns for vascular issues and diabetes. - Concurrent medication includes citalopram with a past noted interaction with azithromycin. Physical Exam General: Cooperative, healthy appearing, comfortable, no acute distress and well developed Orientation: Patient oriented x3 Limitations: No limitations Head: Normal to inspection Ears: Hearing grossly normal bilaterally Nose: Normal External nose present Face and sinus: Normal facial exam Eyes: Appearance normal, both eyes and all related structures Neck: Normal visual inspection and Yes full ROM Respiratory: Normal respiratory effort and able to speak in complete sentences. Skin: No rashes or lesions noted Neuro: Patient oriented x3 Extremities: edema and erytehma in left foot 1st and 2nd digits, slight ttp. full ROM and NVI all toes. dorsalis pedis pulse in tact left foot. [facility] Medical History (Updated 03/16/25 @ 15:48 by Alyssia Saab PA-C) History of right breast cancer Hx of radiation therapy History of chemotherapy Hyperlipidemia Anxiety Pancreatitis Lumbosacral disc disease Lichen planus Other and unspecified hyperlipidemia Abnormal Pap smear of cervix H/O coronary angiogram Breast cancer Glaucoma Multiple sclerosis Surgical History (Updated 10/22/24 @ 08:33 by Farideh Martinez MD) Hx of cardiac catheterization History of ERCP History of removal of Port-a-Cath History of lumpectomy of right breast Hx of endoscopy Hx of colonoscopy H/O section Hx of cholecystectomy Family History Family/Other Triple negative malignant neoplasm of breast Paternal Grandfather Colon cancer Maternal Grandfather Colon cancer Brother Heart attack Neuropathy Father Coronary artery disease Mother Coronary artery disease Social History Household Members: Spouse Housing: House Are you a primary acute care surgeon to a significant other at home: No Do you presently have visiting nurse or other home services: No Alcohol intake: current Alcohol intake frequency: holidays/special occasions only Patient Tobacco Use Status: Never used Tobacco service: No 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 Review of Systems Const All systems reviewed & are unremarkable except as noted in HPI and below Physical Exam Vital Signs: Last Vital Signs Pulse 84 03/16/25 11:11 BP 122/88 03/16/25 11:11 Pulse Ox 97 03/16/25 11:11 Oxygen Delivery Method Room Air 03/16/25 11:11 BMI result Body Mass Index 34.5 Assessment & Plan Assessment & Plan (1) Cellulitis: Code(s): L03.90 - Cellulitis, unspecified Qualifiers: Site of cellulitis: extremity Site of cellulitis of extremity: lower extremity Laterality: left Qualified Code(s): L03.116 - Cellulitis of left lower limb Plan: The patient presents with red and swollen toes, for which the primary concern involves infection due to possible cellulitis. Treatment involves initiating Keflex, with monitoring for symptom changes or tenderness increase. Should symptoms persist without improvement, a reassessment for gout may be warranted for additional management. Patient was informed and verbally consented to the use of an ambient scribe for clinic note documentation during this visit. Medications: New cephalexin 500 mg PO Q6H 28 caps 0RF Coding Level of Care Code New Pt Level 3 (75255) Diagnoses Cellulitis of left lower extremity L03.116 Site of cellulitis: extremity Site of cellulitis of extremity: lower extremity Laterality: left
== END 2025-03-16 11:55 | disposition home or self-care (01) ==
PROVIDERS: Visit Provider Physician Assistant
DX: L03.116 Cellulitis of left lower limb (principal)

== ENCOUNTER → 2025-03-16 10:24 | Outpatient (BNVA) | payer MEDICARE, BC, SELFPAY | PROVIDERS: Visit Provider Physician Assistant | DX: L03.116 Cellulitis of left lower limb (principal) | CPT/HCPCS: 99202 ==

== ENCOUNTER 2025-03-23 08:10 | Outpatient (AMB) | payer MEDICARE, BC, SELFPAY ==
--- OUTSIDE RECORDS SUMMARY | 2025-03-23 08:21 | XMS_ITS | Patient Health Record ---
Author Organization [facility] Address [address] [place] [address] Care Team Providers Care Scanning Manager Name Role Phone Tonny (RETIRED) Aneudy CRAMER Primary Care Provid er Unavailable Aneudy Conway Unavailable [phone] Allergies Allergen (clinical drug ingredient) Drug/Non Drug [...] Status Risk Notes Problem Colon cancer screening (414250211) Colon cancer screening (Z12.11) Active confirmed Problem Pre-procedure evaluation check (994672004) Encounter for other preprocedural examination (Z01.818) Active confirmed Problem Diverticular disease of colon (244075269) Diverticulosis of large intestine without perforation or abscess without bleeding (K57.30) Active confirmed Vital Signs Blood pressure diastolic 00 mm Hg 07/15/2024 Height 66 in 07/15/2024 Blood pressure systolic 00 mm Hg 07/15/2024 Weight 202 lbs 07/15/2024 BMI 32.60 kg/m2 07/15/2024 Encounters Encounter Location Date Provider Diagnosis [facility] [place] [facility] [address] [place], [place] [phone] 10/15/2024 Aneudy Conway Colon cancer screeni ng Z12.11 ; Diverticulosis of large intestine without perforation or abscess without bleeding K57.30 and Other hemorrhoids K64.8 [facility] [address] [place] [address] 07/15/2024 Aneudy Conway Colon cancer screeni ng [...] End Date MEDICARE OF [place] [address] [place] [address] [id number] GEORGE STOCKTON Self - patient is the insured [facility] [address] [place] [address] [phone] [id number] GEORGE STOCKTON Self - patient is the insured Medical (General) History Medical History History ICD Code Disc disease-L5/S! Multiple sclerosis Screening colonoscopy in 09/2003 neg exc ept for a hyperplastic polyp History of pancreatitis-she was found to have a dilated pancreatic duct and is S/P ERCP x 2 with pancreatic sphincterotomy and temporary stent in [place] in [address] Jeff Johnson--she has had no recurrent episodes of pancreatitis since then Glaucoma Anxiety Hyperlipidemia Denies OR,DM,CVA,Lung disease,renal dise ase Neg cardiac cath in [...]
--- OUTSIDE RECORDS SUMMARY | 2025-03-23 08:21 | XMS_ITS ---
Author Organization [facility] Address [address] [place] [address] Care Team Providers Care Nut Picker Name Role Phone Tonny (RETIRED) Aneudy CRAMER Primary Care Provid er Unavailable Aneudy Conway Unavailable [phone] Allergies Allergen (clinical drug ingredient) Drug/Non Drug [...] Status Risk Notes Problem Colon cancer screening (425550412) Colon cancer screening (Z12.11) Active confirmed Problem Pre-procedure evaluation check (557587275) Encounter for other preprocedural examination (Z01.818) Active confirmed Vital Signs Blood pressure systolic 00 mm Hg 07/15/20 24 Blood pressure diastolic 00 mm Hg 024 Height 66 in 07/15/2024 Weight 202 lbs 07/15/2024 BMI 32.60 kg/m2 07/15/2024 Encounters Encounter Location Date Provider Diagnosis [facility] [address] [place] [address] 07/15/2024 Aneudy Conway Colon cancer screeni ng [...] * HANANE STOCKTONADOB:1950 ( 74 yo F)Acc No.[id number]:07/15/2024 Progress Notes Patient:GEORGE REEVES Provider:?Aneudy Conway MD :1950???Age:74 Y???Sex:Female D ate:07/15/2024 Address:[address] [place], [place] [id number] Pcp:Aneudy Lancaster, DO Subjective: * Chief Complaints: [...] MD Date:? 024 Generated for Fransico baez/Faxing/eTransmitting on:?03/23/2025 08:21 AM EDT History and Physical Notes * HPI (History [...]
--- OUTSIDE RECORDS SUMMARY | 2025-03-23 08:21 | XMS_ITS ---
Author Organization [facility] Address [address] [place] [address] Care Team Providers Care Supervisor Name Role Phone Tonny (RETIRED) Aneudy CRAMER Primary Care Provid er Unavailable Aneudy Conway Unavailable [phone] REASON FOR VISIT screening Problems Problem Type SNOMED Code ICD Code Onset Dates Problem Status W/U Status Risk Notes Problem Diverticular disease of colon (899160639) Diverticulosis of large intestine without perforation or abscess without bleeding (K57.30) Active confirmed Encounters Encounter Location Date Provider Diagnosis [facility] Outpatient [address] [place] [phone] 10/15/2024 Aneudy Conway Colon cancer scree shabana [...] * LINDSAY STOCKTON:1950 ( 74 yo F)Acc No.[id number]:10/15/2024 COLON WITH MAC Patient:?GEORGE STOCKTON Provider:?Aneudy Conway MD :1950???Age:74 Y???Sex:Female D ate:10/15/2024 Address:[address] [place] [address] Pcp:Aneudy Lancaster (RETIRE D), DO Subjective: * [...] MD Date:? 024 Generated for Fransico baez/Bel/eTransmitting on:?03/23/2025 08:21 AM EDT
--- NOTE | 2025-03-23 09:15 | AM.OFFWIN_ITS ---
Intake Vital Signs 3 03/23/25 09:17 BP 122/80 Blood Pressure Location Lt brachial Position Sitting Pulse 66 Pulse Source Pulse Oximeter Pulse Oximetry (%) 98 Oxygen Delivery Method Room Air Intake Visit Reasons: EP-lt foot big toe red Patient Tobacco Use Status: Never used Tobacco Allergies Tetanus Vaccines and Toxoid [Tetanus] Allergy (Intermediate, Verified 01/20/25 10:45) SWELLING HPI HPI Comments 2 History of Present Illness0 Details 74 y/o Female patient who presents to [facility] walk in clinic with c/o Left Big Toe redness and swelling. She was last seen here 03/16 for similar concern and was given Keflex ?Cellulitis of Big Toe. She is finishing her last Dose today. Today reports no improvement of symptoms and does not believe the Abx did anything. She does have Thick hard and discolored B/L Toe Nails. She does have an appointment with Osha Inspector in June 2025. She does admit to not taking good care of her Feet/Toes. She is unable to trim down Toe Nails due to Arthritis on her Hands. [facility] Medical History (Updated 03/23/25 @ 09:55 by Hali Xie NP) Onychomycosis History of right breast cancer Hx of radiation therapy History of chemotherapy Hyperlipidemia Anxiety Pancreatitis Lumbosacral disc disease Lichen planus Other and unspecified hyperlipidemia Abnormal Pap smear of cervix H/O coronary angiogram Breast cancer Glaucoma Multiple sclerosis Surgical History (Updated 10/22/24 @ 08:33 by Farideh Martinez MD) Hx of cardiac catheterization History of ERCP History of removal of Port-a-Cath History of lumpectomy of right breast Hx of endoscopy Hx of colonoscopy H/O section Hx of cholecystectomy Family History Family/Other Triple negative malignant neoplasm of breast Paternal Grandfather Colon cancer Maternal Grandfather Colon cancer Brother Heart attack Neuropathy Father Coronary artery disease Mother Coronary artery disease Social History Household Members: Spouse Housing: House Are you a primary acute care registered nurse to a significant other at home: No Do you presently have visiting nurse or other home services: No Alcohol intake: current Alcohol intake frequency: holidays/special occasions only Patient Tobacco Use Status: Never used Tobacco service: No 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 Thick Yellowish hard Toe Nails. Toes appear purplish/Pinkish in color. Normal Pedal pulses. Big Toe with slight TTP. Assessment & Plan Assessment & Plan (1) Onychomycosis: Code(s): B35.1 - Tinea unguium Plan: Advised to contact her Podi for a sooner appointment. Unlikely Cellulitis, Abx were ineffective. Pt has Toe Nail fungus, will Treat with Fluconazole Oral. Pt instructed to Hold Citalopram due to interaction. Medications: New 2 fluconazole TAKE 1 TABLET ONCE A WEEK FOR FOUR WEEKS. HOLD CITALOPRAM AND DO TAKE IT TOGETHER. 150 mg PO QWEEK 4 tabs 0RF NAIL FUNGUS B35.1 - Tinea unguium Coding Level of Care Code Est Pt Level 4 (44954) Diagnoses Onychomycosis B35.1 Time Spent (min) 20
[2025-03-23 09:17] VITALS: BP 122/80; PULSE 66; O2SAT 98
== END 2025-03-23 09:52 | disposition home or self-care (01) ==
PROVIDERS: Visit Provider Nurse Practitioner Family
DX: B35.1 Tinea unguium (principal)

== ENCOUNTER → 2025-03-23 08:10 | Outpatient (BNVA) | payer MEDICARE, BC, SELFPAY | PROVIDERS: Visit Provider Nurse Practitioner Family | DX: B35.1 Tinea unguium (principal) | CPT/HCPCS: 99212 ==

== ENCOUNTER 2025-05-14 13:20 | Outpatient (AMB) | payer MEDICARE, BC, SELFPAY ==
--- NOTE | 2025-05-14 13:24 | MHC.OFFVIS ---
Intake Visit Reasons: Inj- B/L knee OA, last inj 01/20/25 Intake Note: Marizol is a 74 year old female who presents today for repeat injections in both of her knees, last injection 01/20/25. Allergies Tetanus Vaccines and Toxoid (Tetanus) Allergy (Intermediate, Verified 01/20/25 10:45) SWELLING HPI HPI Inj- B/L knee OA, last inj 01/20/25: Details: Ms. Escalante is a 74-year-old female who presents to the office today for bilateral chronic knee pain due to osteoarthritis. She last had cortisone injections in both knees on 01/20/2025. She got about 3 months of relief with these injections. She would like to repeat injections in both knees while the office today. [facility] Medical History (Updated 03/23/25 @ 09:55 by Hali Xie NP) Onychomycosis History of right breast cancer Hx of radiation therapy History of chemotherapy Hyperlipidemia Anxiety Pancreatitis Lumbosacral disc disease Lichen planus Other and unspecified hyperlipidemia Abnormal Pap smear of cervix H/O coronary angiogram Breast cancer Glaucoma Multiple sclerosis Surgical History (Updated 10/22/24 @ 08:33 by Farideh Martinez MD) Hx of cardiac catheterization History of ERCP History of removal of Port-a-Cath History of lumpectomy of right breast Hx of endoscopy Hx of colonoscopy H/O section Hx of cholecystectomy Family History Family/Other Triple negative malignant neoplasm of breast Paternal Grandfather Colon cancer Maternal Grandfather Colon cancer Brother Heart attack Neuropathy Father Coronary artery disease Mother Coronary artery disease Social History Household Members: Spouse Housing: House Are you a primary resident care assistant to a significant other at home: No Do you presently have visiting nurse or other home services: No Alcohol intake: current Alcohol intake frequency: holidays/special occasions only Patient Tobacco Use Status: Never used Tobacco service: No 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 No ecchymosis, erythema, or joint effusion. No tenderness to palpation along the medial or lateral joint lines. Full knee extension and flexion. Crepitus is felt with ROM. NVI.? Office Procedures AMB Joint Injection/Aspiration Joint Injection/Aspiration Primary Site: right knee Secondary Site: left knee Prep: site was prepped using aseptic technique, ethochloride spray was applied and injection warnings given Injected: 80 mg of, DepoMedrol, with 8 mL of (2% plain lidocaine) and in the joint Approach Used: anterolateral Procedure: The patient tolerated the procedure well, but had some pain with the injection and there was some relief with the local anesthesia Coding 01878 - Bilateral Large Joint Procedure code (CPT) selection complete Assessment & Plan Assessment & Plan (1) Osteoarthritis of right knee: Code(s): M17.11 - Unilateral primary osteoarthritis, right knee Category: Medical (2) Osteoarthritis of left knee: Code(s): M17.12 - Unilateral primary osteoarthritis, left knee Category: Medical Plan The patient was offered bilateral knee cortisone injections with 80 mg of DepoMedrol. The patient was explained the risks, benefits, and alternatives to receiving this injection. After receiving consent for the injection, the patient had the procedure done while in the office today. The patient tolerated the procedure well with no complications. Follow-up will be PRN, or sooner if needed Coding Level of Care Code Procedure Only Diagnoses Osteoarthritis of right knee M17.11 Osteoarthritis of left knee M17.12 CPT Codes Coding - 53749 - Bilateral Large Joint: 55686 - Bilateral Large Joint ([id number])
--- OUTSIDE RECORDS SUMMARY | 2025-05-14 16:04 | XMS_ITS | Patient Health Record ---
Author Organization [facility] Address [address] [place] [address] Care Team Providers Care Transport Operations Inspector Name Role Phone Tonny (RETIRED) Aneudy CRAMER Primary Care Provid er Unavailable Aneudy Conway Unavailable [phone] Allergies Allergen (clinical drug ingredient) Drug/Non Drug [...] Status Risk Notes Problem Colon cancer screening (526256297) Colon cancer screening (Z12.11) Active confirmed Problem Pre-procedure evaluation check (752178034) Encounter for other preprocedural examination (Z01.818) Active confirmed Problem Diverticular disease of colon (795313755) Diverticulosis of large intestine without perforation or abscess without bleeding (K57.30) Active confirmed Vital Signs Blood pressure diastolic 00 mm Hg 07/15/2024 Height 66 in 07/15/2024 Blood pressure systolic 00 mm Hg 07/15/2024 Weight 202 lbs 07/15/2024 BMI 32.60 kg/m2 07/15/2024 Encounters Encounter Location Date Provider Diagnosis [facility] Outpatient [address] [place], [place] [phone] 10/15/2024 Aneudy Conway Colon cancer screeni ng Z12.11 ; Diverticulosis of large intestine without perforation or abscess without bleeding K57.30 and Other hemorrhoids K64.8 [facility] [address] [place] [address] 07/15/2024 Aneudy Conway Colon cancer screeni ng [...] End Date MEDICARE OF [place] [address] [place] [address] [phone] [id number] GEORGE STOCKTON Self - patient is the insured [facility] [address] [place] [address] [phone] [id number] GEORGE STOCKTON Self - patient is the insured Medical (General) History Medical History History ICD Code Disc disease-L5/S! Multiple sclerosis Screening colonoscopy in 09/2003 neg exc ept for a hyperplastic polyp History of pancreatitis-she was found to have a dilated pancreatic duct and is S/P ERCP x 2 with pancreatic sphincterotomy and temporary stent in [place] in [address] Jeff Johnson--she has had no recurrent episodes of pancreatitis since then Glaucoma Anxiety Hyperlipidemia Denies NH,DM,CVA,Lung disease,renal dise ase Neg cardiac cath in [...]
== END 2025-05-14 13:54 | disposition home or self-care (01) ==
LOC: HO.HOS 13:21
PROVIDERS: PCP Internal Medicine; Visit Provider Physician Assistant
DX: M17.0 Bilateral primary osteoarthritis of knee (principal)
CPT/HCPCS: 20610

== ENCOUNTER → 2025-05-14 13:20 | Outpatient (BNVA) | payer MEDICARE, BC, SELFPAY | PROVIDERS: PCP Internal Medicine; Visit Provider Physician Assistant | DX: M17.0 Bilateral primary osteoarthritis of knee (principal) | CPT/HCPCS: 20610; J1010; J2003 ==

== ENCOUNTER 2025-06-02 09:20 | Outpatient (AMB) | payer MEDICARE, BC, SELFPAY ==
--- OUTSIDE RECORDS SUMMARY | 2025-06-02 09:49 | XMS_ITS | Patient Health Record ---
Author Organization [facility] Address [address] [place] [address] Care Team Providers Care Lithograph Press Feeder Name Role Phone Tonny (RETIRED) Aneudy CRAMER Primary Care Provid er Unavailable Aneudy Conway Unavailable [phone] Allergies Allergen (clinical drug ingredient) Drug/Non Drug [...] Status Risk Notes Problem Colon cancer screening (066776108) Colon cancer screening (Z12.11) Active confirmed Problem Pre-procedure evaluation check (713975656) Encounter for other preprocedural examination (Z01.818) Active confirmed Problem Diverticular disease of colon (680490049) Diverticulosis of large intestine without perforation or abscess without bleeding (K57.30) Active confirmed Vital Signs Blood pressure diastolic 00 mm Hg 07/15/2024 Height 66 in 07/15/2024 Blood pressure systolic 00 mm Hg 07/15/2024 Weight 202 lbs 07/15/2024 BMI 32.60 kg/m2 07/15/2024 Encounters Encounter Location Date Provider Diagnosis [facility] Outpatient [address] [place], [place] [phone] 10/15/2024 Aneudy Conway Colon cancer screeni ng Z12.11 ; Diverticulosis of large intestine without perforation or abscess without bleeding K57.30 and Other hemorrhoids K64.8 [facility] [address] [place] [address] 07/15/2024 Aneudy Conway Colon cancer screeni ng [...] End Date MED[place]ARE OF [place] [address] [place] [address] [phone] [id number] GEORGE STOCKTON Self - patient is the insured [facility] [address] [place] [address] [id number] GEORGE STOCKTON Self - patient is the insured Medical (General) History Medical History History ICD Code Disc disease-L5/S! Multiple sclerosis Screening colonoscopy in 09/2003 neg exc ept for a hyperplastic polyp History of pancreatitis-she was found to have a dilated pancreatic duct and is S/P ERCP x 2 with pancreatic sphincterotomy and temporary stent in [place] [address] Jeff Johnson--she has had no recurrent episodes of pancreatitis since then Glaucoma Anxiety Hyperlipidemia Denies MS,DM,CVA,Lung disease,renal dise ase Neg cardiac cath in [...]
--- NOTE | 2025-06-02 09:54 | A.OFFVIS_ITS ---
Vital Signs 06/02/25 09:54 Height 5 ft 5 in Intake Visit Reasons: 1 yr Allergies Tetanus Vaccines and Toxoid (Tetanus) Allergy (Intermediate, Verified 06/02/25 09:59) SWELLING Medication List - Last Reconciled 06/02/25 by Destiny Cuevas CNP acetaminophen ER 1,300 mg PO Q8H atorvastatin 20 mg PO DAILY bimatoprost 0.01% (Lumigan) 1 drp ophthalmic (eye) DAILY brinzolamide 1% (Azopt) 1 drp ophthalmic (eye) BID citalopram 1 tab PO DAILY latanoprost 0.005% 1 drp ophthalmic (eye) BEDTIME multivitamin 1 tab PO DAILY HPI Comments Details: She was doing okay. MS stable, no new symptoms. Arthritis pains in hips, knees, and hands. Gets steroid injections in knees few times a year which helps. Off balance at times, lists to left side, occasionally uses cane depending on knee pain. No falls. Occasional dizziness if she lays on right side. Ongoing fatigue. Sleep was up and down. Naps during the day. Breast cancer f/u has been okay. Breast cancer 2019 s/p lumpectomy, RT, and chemo x6 months. Occasional twitch of right leg. In 1989, she was diagnosed to have herniated right sided L5-S1 disc producing sciatica and multiple sclerosis with a stable relapsing remitting type MS with fatigue and abnormal MRIs. She had some preceding sensory symptoms. No cognitive problems. She has elected not to take any disease modifying therapy and has done generally well. Symptomatically treated over the years with amantadine, Provigil, and Lexapro without significant response. 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 MRI in 04/2005 showed T2 and flair hyperintensities in subcortical and periventricular white matter including corpus callosum, unchanged from 02/2003. [facility] Medical History (Updated 06/02/25 @ 09:57 by Destiny Cuevas CNP) Hip arthritis Lumbar disc disease Onychomycosis History of right breast cancer Hx of radiation therapy History of chemotherapy Hyperlipidemia Anxiety Pancreatitis Lumbosacral disc disease Lichen planus Other and unspecified hyperlipidemia Abnormal Pap smear of cervix H/O coronary angiogram Breast cancer Glaucoma Multiple sclerosis Surgical History (Updated 10/22/24 @ 08:33 by Farideh Martinez MD) Hx of cardiac catheterization History of ERCP History of removal of Port-a-Cath History of lumpectomy of right breast Hx of endoscopy Hx of colonoscopy H/O section Hx of cholecystectomy Family History Family/Other Triple negative malignant neoplasm of breast Paternal Grandfather Colon cancer Maternal Grandfather Colon cancer Brother Heart attack Neuropathy Father Coronary artery disease Mother Coronary artery disease Social History Household Members: Spouse Housing: House Are you a primary rn progressive care unit to a significant other at home: No Do you presently have visiting nurse or other home services: No Alcohol intake: current Alcohol intake frequency: holidays/special occasions only Patient Tobacco Use Status: Never used Tobacco service: No 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 Review of Systems Const Denies chills, Denies daytime sleepiness, Reports difficulty sleeping, Reports fatigue, Denies fever(s), Denies frequent falls, Denies headache(s), Denies increased appetite, Denies poor appetite, Denies snoring, Denies weakness, Denies weight gain and Denies weight loss Eyes Denies loss of vision ENT Denies vertigo, Denies dizziness, Denies headache(s) and Denies neck pain Card Denies chest pain at rest, Denies chest pain with activity, Denies syncope, Denies leg edema, Denies palpitations, Denies dyspnea and Denies dyspnea on exertion Resp Denies cough, Denies dyspnea, Denies dyspnea on exertion and Denies snoring GI Denies abdominal pain, Denies constipation, Denies heartburn, Denies diarrhea and Denies nausea Denies urinary frequency, Denies urinary incontinence and Denies urinary urgency Musc Denies abnormal gait, Reports back pain, Denies myalgias, Reports arthralgias, Denies neck pain, Denies numbness and Denies tingling Neuro Denies abnormal gait, Denies vertigo, Denies dizziness, Denies syncope, Denies frequent falls, Denies headache(s), Denies lack of coordination, Denies loss of vision, Denies memory loss, Denies numbness, Denies Other visual disturbances, Denies restless legs, Denies seizure-like activity, Denies tingling, Denies paresthesias, Denies tremor(s) and Denies weakness Psych Denies anxiety, Denies depression, Denies auditory hallucinations, Denies memory loss and Denies visual hallucinations Endo Reports fatigue and Denies palpitations Physical Exam Const Other: General Appearance:? normal, in no acute distress. Heart:? S1, S2 normal, no murmurs. Lungs:? clear anteriorly and posteriorly. Musculoskeletal:? normal. Extremities:? no edema. Psych:? alert, oriented, cognitive function intact, cooperative with exam. Neuro Other: Abnormal Neurological Findings:?Slight increase in tone and minimal ataxia. Mental Status: alert and oriented X 3. Normal attention, orientation, memory, and affect. Cranial Nerves: Pupils are equal, round, and reactive to light. External ocular muscles are intact. Visual anderson are full, no ptosis. Face is symmetrical, no facial weakness or droop. Facial sensations are normal. Tongue protrudes in midline. Palate elevates symmetrically. Shoulder shrugging is normal Motor Examination: As above, otherwise normal muscle tone, bulk and strength. No atrophy or fasciculations. No drift of the extended upper extremities. DTR 2+. Plantars are flexor. Straight Leg Raisin degrees. Sensory Exam: Normal light touch, temperature, pinprick, vibration, and joint- position sensations. Rhomberg sign is absent. Coordination: No ataxia. No titubation. Qovbvh-cr-amug, jxol-iclv-vfqn test, and rapid alternating movements were normal. Gait Exam: As above Cerebellar Signs: Orbblg-hy-xyok and gaha-ju-krgv is normal. No dysdiadochokinesia. Extrapyramidal System: No tremor, rigidity with normal facial expressions. No b radykinesia. No bradyphrenia. Normal arm swing and posture. No propulsion or retropulsion. Speech: Normal. No dysphasia or dysarthria. Assessment & Plan Assessment & Plan (1) Multiple sclerosis: Comment: since her 1st - no treatment required Code(s): G35 - Multiple sclerosis Category: Medical Plan: Continue current treatment. Use cane or walker for additional support. MRI brain 2017 stable, no new lesions. Option for f/u brain MRI reviewed, will hold off for now. Coding Level of Care Code Est Pt Level 3 (78837) Diagnoses Multiple sclerosis G35
== END 2025-06-02 10:12 | disposition home or self-care (01) ==
LOC: HO.HSM 09:21
PROVIDERS: PCP Internal Medicine; Referring Provider Internal Medicine; Visit Provider Registered Nurse
DX: G35 Multiple sclerosis (principal)
CPT/HCPCS: 99213

== ENCOUNTER → 2025-06-02 09:20 | Outpatient (BNVA) | payer MEDICARE, BC, SELFPAY | PROVIDERS: PCP Internal Medicine; Referring Provider Internal Medicine; Visit Provider Registered Nurse | DX: G35 Multiple sclerosis (principal); Z79.899 Other long term (current) drug therapy | CPT/HCPCS: 99212 ==

== ENCOUNTER 2025-06-04 13:23 | Outpatient (AMB) | payer MEDICARE, BC, SELFPAY ==
--- OUTSIDE RECORDS SUMMARY | 2025-06-04 13:53 | XMS_ITS | Patient Health Record ---
Author Organization [facility] Address [address] [place] [address] Care Team Providers Care Catheter Builder Name Role Phone Tonny (RETIRED) Aneudy CRAMER Primary Care Provid er Unavailable Aneudy Conway Unavailable [phone] Allergies Allergen (clinical drug ingredient) Drug/Non Drug [...] Status Risk Notes Problem Colon cancer screening (500365834) Colon cancer screening (Z12.11) Active confirmed Problem Pre-procedure evaluation check (040985652) Encounter for other preprocedural examination (Z01.818) Active confirmed Problem Diverticular disease of colon (770634533) Diverticulosis of large intestine without perforation or abscess without bleeding (K57.30) Active confirmed Vital Signs Blood pressure diastolic 00 mm Hg 07/15/2024 Height 66 in 07/15/2024 Blood pressure systolic 00 mm Hg 07/15/2024 Weight 202 lbs 07/15/2024 BMI 32.60 kg/m2 07/15/2024 Encounters Encounter Location Date Provider Diagnosis [facility] [place] [address] [place], [place] [phone] 10/15/2024 Aneudy Conway Colon cancer screeni ng Z12.11 ; Diverticulosis of large intestine without perforation or abscess without bleeding K57.30 and Other hemorrhoids K64.8 [facility] [address] [place] [address] 07/15/2024 Aneudy Conway Colon cancer screeni ng [...] End Date MEDICARE OF [place] [address] [place] [address] [id number] GEORGE STOCKTON Self - patient is the insured [facility] [address] [place] [address] [phone] [id number] GEORGE STOCKTON Self - patient is the insured Medical (General) History Medical History History ICD Code Disc disease-L5/S! Multiple sclerosis Screening colonoscopy in 09/2003 neg exc ept for a hyperplastic polyp History of pancreatitis-she was found to have a dilated pancreatic duct and is S/P ERCP x 2 with pancreatic sphincterotomy and temporary stent in [place] [address] Jeff Johnson--she has had no recurrent episodes of pancreatitis since then Glaucoma Anxiety Hyperlipidemia Denies [place],DM,CVA,Lung disease,renal dise ase Neg cardiac cath in [...]
[2025-06-04 13:55] VITALS: BP 144/80; PULSE 73; RESP 16; TEMP 36.7; O2SAT 98; BMI 33.1
--- NOTE | 2025-06-04 13:55 | A.OFFPC_ITS ---
Vital Signs 06/04/25 13:55 Height 5 ft 5 in Weight 199 lb BMI 33.1 BP 144/80 H Blood Pressure Location Lt brachial Position Sitting Respiration 16 Pulse 73 Pulse Source Pulse Oximeter Temp 98.0 F Temp Source Oral Pulse Oximetry (%) 98 Oxygen Delivery Method Room Air Intake Visit Reasons: New pt visit Intake Note: Pt is here today as a New Patient to [facility] care Allergies Tetanus Vaccines and Toxoid (Tetanus) Allergy (Intermediate, Verified 06/04/25 14:18) SWELLING Medication List - Last Reconciled 06/04/25 by Maria De Jesus Leung MD acetaminophen ER 1,300 mg PO Q8H atorvastatin 20 mg PO DAILY brinzolamide 1% (Azopt) 1 drp ophthalmic (eye) BID citalopram 1 tab PO DAILY latanoprost 0.005% 1 drp ophthalmic (eye) BEDTIME multivitamin 1 tab PO DAILY Tobacco use date assessed: 06/04/25 Fall risk assessment: No Falls in past year Last assessed Fall Risk: 06/04/25 Dental Screening Dental Screen Date: 06/04/25 Did you have a dental visit in the last 12 months?: Yes Did you have a dental problem in the last 6 months where you did not have access to dental care?: No Was dental information given to patient?: Patient has dentist HPI New pt visit HPI Details - 74-year-old female , new to practice, here to establish care - she has been diagnosed with Multiple s clerosis: contributing to fatigue. No recent exacerbations noted. - history of Cholelithiasis s/p cholecys tectomy in 2000, with history of pancreatitis due to retained bile duct stone . - Osteopenia: Diagnosed with bone thinni ng in the hip, lower back, and thigh. Last bone density scan on 05/30/2023 showed osteopenia. No history of fracture -last colon cancer screening done by col onoscopy was in 2023, with negative findings, no longer needing further screening per patient - Glaucoma: Managed with Azopt and latan oprost eye drops. Currently stable under the care of Karina Degroot. - Hypertension: Blood pressure recorded at 144/80 mmHg during the visit. Patient states that she has been checking has been running below 130/80 . - has osteo arthritis: Present in hips, knee, and thumbs. Managed with Tylenol and steroid injections. - history of Breast cancer, triple negat ankur: Diagnosed in 2019, treated with chemotherapy and radiation. No mastectomy performed. - has prediabetes: Currently controlled with lifestyle modification and adherence to diet. - Fungal infection of toenail: Persisten t, with an upcoming podiatry appointment scheduled. -had recent lifeline screening done and had an abnormal GIOVANNA index results, requesting referral to vascular surgeon [facility] Medical History (Updated 06/08/25 @ 23:50 by Maria De Jesus Leung MD) History of pancreatitis Osteoarthritis, multiple sites Dyslipidemia Abnormal ankle brachial index (GIOVANNA) History of invasive breast cancer Osteopenia of multiple sites Hip arthritis Onychomycosis Hx of radiation therapy History of chemotherapy Anxiety Lumbosacral disc disease Lichen planus Abnormal Pap smear of cervix H/O coronary angiogram Glaucoma Multiple sclerosis Surgical History Hx of cardiac catheterization History of ERCP History of removal of Port-a-Cath History of lumpectomy of right breast Hx of endoscopy Hx of colonoscopy H/O section Hx of cholecystectomy Family History (Updated 06/04/25 @ 13:59 by Angela Jones CMA) Family/Other Triple negative malignant neoplasm of breast Paternal Grandfather Colon cancer Maternal Grandfather Colon cancer Brother Heart attack Neuropathy Father Coronary artery disease Mother Coronary artery disease Social History Household Members: Spouse Housing: House Are you a primary hospice care consultant to a significant other at home: No Do you presently have visiting nurse or other home services: No Alcohol intake: current Alcohol intake frequency: holidays/special occasions only Patient Tobacco Use Status: Never used Tobacco service: No 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 1. Little interest or pleasure in doing things: not at all 2. Feeling down, depressed, or hopeless: not at all 3. Trouble falling or staying asleep, or sleeping too much: not at all 4. Feeling tired or having little energy: nearly every day 5. Poor appetite or overeating: not at all 6. Feeling bad about yourself - or that you are a failure or have let yourself or your family down: not at all 7. Trouble concentrating on things, such as reading the newspaper or watching television: not at all 8. Moving or speaking so slowly that other people could have noticed. Or the opposite - being so fidgety or restless that you have been moving around a lot more than usual: not at all 9. Thoughts that you would be better off or of hurting yourself in some way: not at all Total score: 3 Depression Screening Interpretation: Negative Depression Screening Done: Yes 78388 - PHQ-9 Billing: Yes Source: Developed by Drs. Aneudy Mora, Rosette Ho, Dickson Byrne and colleagues, with an educational corey from [employer]. Thrive Questionnaire Date Thrive assessed: 05/28/25 I am a: Patient What is your living situation today?: I have a steady place to live Within the past 12 months, did the food you bought not last and you didn't have the money to get more?: Never true Within the past 12 months, did you worry whether your food would run out before you got money to buy more?: Never true Do you have trouble paying for medicines?: No Do you have trouble getting transportation to medical appointments?: No Do you have trouble paying your heating and electricity bill?: No Do you have trouble taking care of your child, family member or friend?: No Do you have trouble with day-to-day activities such as bathing, preparing meals, shopping, managing finances, etc.?: No Are you currently unemployed and looking for a job?: No Are you interested in more education?: No Please select the resources that you would like help with: None Currently or been in a relationship where the following occur: No concerns reported THRIVE Score: 0 AUDIT C Alcohol Use Questionnaire (AUDIT-C) 1. How often do you have a drink containing alcohol?: Never Total Score: 0 Score Reviewed/Action Taken: Yes RONNIE-7 AMB Questionnaire RONNIE-7 Date RONNIE - 7 assessed: 06/04/25 Feeling nervous, anxious, or on edge: 0 = Not at all Not being able to stop or control worryin = Not at all Worrying too much about different things: 0 = Not at all Trouble relaxin = Not at all Being so restless that it is hard to sit still: 0 = Not at all Becoming easily annoyed or irritable: 0 = Not at all Feeling afraid as if something awful might happen: 0 = Not at all Total RONNIE-7 score (0-4 normal; 5-9 mild; 10-14 moderate; 15-21 severe): 0 Source: Developed by Drs. Aneudy Mora, Rosette Ho, Dickson Byrne and colleagues, with an educational corey from [employer]. RONNIE-7 Assessment Billing RONNIE-7 Assessment Tool: RONNIE-7 Assessment 02067 Review of Systems Const Denies daytime sleepiness, Reports difficulty sleeping, Reports fatigue, Denies frequent falls, Denies headache(s), Denies poor appetite, Denies snoring, Denies weakness and Denies weight gain Eyes Details: Has glaucoma, now sees Karina Degroot at [facility] ENT Denies vertigo, Denies dizziness, Denies headache(s) and Denies neck pain Card Denies chest pain at rest, Denies chest pain with activity, Denies syncope, Denies leg edema, Denies palpitations, Denies dyspnea and Denies dyspnea on exertion Resp Denies cough, Denies dyspnea, Denies dyspnea on exertion and Denies snoring GI Denies abdominal pain, Denies constipation, Denies heartburn, Denies diarrhea and Denies nausea Details: Sees Magali Cota at [facility] OBGYN every 2 years Denies urinary frequency, Denies nipple discharge, Denies urinary incontinence and Denies urinary urgency Musc Denies abnormal gait, Reports back pain, Denies myalgias, Reports arthralgias, Denies neck pain and Denies numbness Skin/Breast Denies breast skin changes, Denies breast pain, Denies breast mass, Denies nipple discharge and Denies rash Neuro Denies abnormal gait, Denies vertigo, Denies dizziness, Denies syncope, Denies frequent falls, Denies headache(s), Denies memory loss, Denies numbness, Denies seizure-like activity, Denies paresthesias, Denies tremor(s) and Denies weakness Psych Denies anxiety, Denies depression, Denies auditory hallucinations, Denies memory loss and Denies visual hallucinations Endo Reports fatigue and Denies palpitations Brandon/Lymph Reports no additional complaints Aller/Immun Reports no additional complaints Physical exam (Primary Care) Vital Signs: Last Vital Signs Temp 98.0 F 06/04/25 13:55 Pulse 73 06/04/25 13:55 Resp 16 06/04/25 13:55 BP 144/80 H 06/04/25 13:55 Pulse Ox 98 06/04/25 13:55 Oxygen Delivery Method Room Air 06/04/25 13:55 BMI result Body Mass Index 33.1 Tobacco/Smoking Status: Tobacco use Status Tobacco use date assessed 06/04/25 06/04/25 14:01 Patient Tobacco Use Status Never used Tobacco 06/04/25 14:01 PHQ-9: PHQ-9 Score PHQ-9: Total score 3 06/04/25 14:36 Depression Screening Interpretation: Negative Thrive Assessment: Date of Thrive Assessment Date Thrive assessed 05/28/25 06/04/25 14:01 Currently or been in a relationship where the following occur: No concerns reported Const General: no acute distress and alert Orientation/consciousness: patient oriented x3 HENMT Head: Yes normocephalic Ears: external ears normal, TM's normal bilaterally and EAC's normal General nose exam: Normal external nose present and No nasal discharge present Face and sinus: Yes face symmetric Mouth: Normal oral and palatal mucosa present, tongue normal and moist mucous membranes Eyes General: appearance normal, both eyes and all related structures Eyelids: Yes eyelids normal Conjunctivae: conjunctivae normal Sclerae: sclerae normal Pupils: Equal, round and reactive pupils present EOM: EOMs intact bilaterally Neck Neck: Yes full ROM, Yes no lymphadenopathy and Yes supple Thyroid: Thyroid normal Resp Effort & Inspection: normal respiratory effort and able to speak in complete sentences Auscultation: clear to auscultation bilaterally Cardio Other: Unable to palpate dorsalis pedis pulse or posterior tibial pulses bilaterally Rate: regular rate Rhythm: regular rhythm Heart sounds: S1 normal heart sound present and S2 normal heart sound present GI Palpation (GI): Soft to palpation, nontender, no guarding and no masses Auscultation: normal bowel sounds Other: Goes to [facility] OBG[facility], sees Magali Cota gets cervical cancer screenings every 2 year General: Yes no CVA tenderness Back/Spine/Pelvis Back: no CVA tenderness and No back tenderness Skin General skin exam: no rashes or lesions noted Neuro General: patient oriented x3, gait normal, moves all extremities, Normal light touch and pain sensation, no focal motor deficits and CN's II-XI intact bilaterally Cranial nerves: Yes Equal, round and reactive pupils present Cognition (Neuro): normal cognition Gait exam (Neuro): Normal gait present Motor exam (neuro): 5/5 motor strength present throughout Extrem General: Yes normal to inspection, Yes full ROM, Yes no joint enlargement, Yes no pedal edema and Yes normal gait Psych Appearance: grossly normal and well kempt Mental Status: mental status grossly normal Speech and movement: Normal speech and movement present Affect: normal affect Attitude: cooperative Thought process: Normal thought process present Thought content: Normal thought content present Coding Level of Care Code New Pt Level 4 (09506) Diagnoses Osteopenia of multiple sites M85.89 History of invasive breast cancer Multiple sclerosis G35 Abnormal ankle brachial index (GIOVANNA) R68.89 Dyslipidemia E78.5 Glaucoma, unspecified glaucoma type, unspecified laterality H40.9 Glaucoma type: unspecified Laterality: unspecified laterality Primary osteoarthritis involving multiple joints M15.0 Osteoarthritis type: primary Anxiety F41.9 Additional Codes RONNIE-7 Assessment Billing - RONNIE-7 Assessment Tool: RONNIE-7 Assessment 35164 ([id number]) PHQ-9 - 83891 - PHQ-9 Billing: Yes ([id number]) Assessment & Plan Assessment & Plan (1) Osteopenia of multiple sites: Code(s): M85.89 - Other specified disorders of bone density and structure, multiple sites Category: Medical Plan: Bone density scan ordered, will check vitamin-D, reinforced importance of doing regular weight-bearing exercise, taking adequate calcium from dietary sources and vitamin-D 3 supplements at least 2000 units daily (2) History of invasive breast cancer: Comment: Diagnosed in 2019 status post chemotherapy and radiation therapy Category: Medical Plan: Currently followed by Dr. Martinez (3) Multiple sclerosis: Comment: since her 1st - no treatment required Code(s): G35 - Multiple sclerosis Category: Medical Plan: Followed by Neurology at [facility] (4) Abnormal ankle brachial index (GIOVANNA): Comment: GIOVANNA 0.89 on left and 0.93 on right done 01/21/2025 Code(s): R68.89 - Other general symptoms and signs Category: Medical Plan: Reinforced importance of having blood pressure, glucose and cholesterol levels controlled. Referred to vascular surgery for further evaluation (5) Dyslipidemia: Code(s): E78.5 - Hyperlipidemia, unspecified Category: Medical Plan: Fasting lipid panel ordered, currently on atorvastatin 20 mg daily reinforced importance of following a low-cholesterol diet and getting regular exercise. (6) Glaucoma: Code(s): H40.9 - Unspecified glaucoma Category: Medical Qualifiers: Glaucoma type: unspecified Laterality: unspecified laterality Qualified Code(s): H40.9 - Unspecified glaucoma Plan: Now followed at [facility], currently on ease upped and latanoprost eyedrops (7) Osteoarthritis, multiple sites: Code(s): M15.9 - Polyosteoarthritis, unspecified Category: Medical Qualifiers: Osteoarthritis type: primary Qualified Code(s): M15.0 - Primary generalized (osteo)arthritis Plan: Takes Tylenol arthritis 650 mg per tablet 1 tablet twice a day (8) Anxiety: Code(s): F41.9 - Anxiety disorder, unspecified Category: Medical Plan: Controlled on citalopram 20 mg daily Orders: Orders XR DEXA axial skeleton 06/04/25 M85.89 - Other specified disorders of bone density and structure, multiple sites Lipid Panel 06/04/25 G35 - Multiple sclerosis, M85.89 - Other specified disorders of bone density and structure, multiple sites, R68.89 - Other general symptoms and signs Vitamin D 25-OH Total 06/04/25 G35 - Multiple sclerosis, M85.89 - Other specified disorders of bone density and structure, multiple sites, R68.89 - Other general symptoms and signs Comprehensive [place]. Panel Fast 06/04/25 G35 - Multiple sclerosis, M85.89 - Other specified disorders of bone density and structure, multiple sites, R68.89 - Other general symptoms and signs Hemoglobin A1c 06/04/25 G35 - Multiple sclerosis, M85.89 - Other specified disorders of bone density and structure, multiple sites, R68.89 - Other general symptoms and signs Referrals Vascular Surgery Referral R68.89 - Other general symptoms and signs
== END 2025-06-04 14:56 | disposition home or self-care (01) ==
LOC: HO.HMCC 13:23
PROVIDERS: PCP Internal Medicine; Visit Provider Internal Medicine
DX: M85.89 Other specified disorders of bone density and structure, multiple sites (principal); G35 Multiple sclerosis; R68.89 Other general symptoms and signs; E78.5 Hyperlipidemia, unspecified; H40.9 Unspecified glaucoma; M15.0 Primary generalized (osteo)arthritis; F41.9 Anxiety disorder, unspecified

== ENCOUNTER → 2025-06-04 13:23 | Outpatient (BNVA) | payer MEDICARE, BC, SELFPAY | PROVIDERS: PCP Internal Medicine; Visit Provider Internal Medicine | DX: M85.89 Other specified disorders of bone density and structure, multiple sites (principal); G35 Multiple sclerosis; E78.5 Hyperlipidemia, unspecified; H40.9 Unspecified glaucoma; M15.0 Primary generalized (osteo)arthritis; F41.9 Anxiety disorder, unspecified | CPT/HCPCS: 96127; 99202 ==

== ENCOUNTER 2025-06-10 07:24 | Outpatient (REF) | payer MEDICARE, BC, SELFPAY ==
--- OUTSIDE RECORDS SUMMARY | 2025-06-10 07:27 | XMS_ITS | Patient Health Record ---
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 Name Role Phone Tonny (RETIRED) Aneudy CRAMER Primary Care Provid er Unavailable Aneudy Conway Unavailable [phone] Allergies Allergen (clinical drug ingredient) Drug/Non Drug [...] Status Risk Notes Problem Colon cancer screening (356127736) Colon cancer screening (Z12.11) Active confirmed Problem Pre-procedure evaluation check (605199873) Encounter for other preprocedural examination (Z01.818) Active confirmed Problem Diverticular disease of colon (291368568) Diverticulosis of large intestine without perforation or abscess without bleeding (K57.30) Active confirmed Vital Signs Blood pressure diastolic 00 mm Hg 07/15/2024 Height 66 in 07/15/2024 Blood pressure systolic 00 mm Hg 07/15/2024 Weight 202 lbs 07/15/2024 BMI 32.60 kg/m2 07/15/2024 Encounters Encounter Location Date Provider Diagnosis [facility] Outpatient [address] [place], [place] [id number] 10/15/2024 Aneudy Conway Colon cancer screeni ng Z12.11 ; Diverticulosis of large intestine without perforation or abscess without bleeding K57.30 and Other hemorrhoids K64.8 [facility] [address] [place] [address] 07/15/2024 Aneudy Conway Colon cancer screeni ng [...] End Date MEDICARE OF [place] [address] [place] [address] [id number] GEORGE STOCKTON Self - patient is the insured [facility] [address] [place] [address] [phone] [id number] GEORGE STOCKTON Self - patient is the insured Medical (General) History Medical History History ICD Code Disc disease-L5/S! Multiple sclerosis Screening colonoscopy in 09/2003 neg exc ept for a hyperplastic polyp History of pancreatitis-she was found to have a dilated pancreatic duct and is S/P ERCP x 2 with pancreatic sphincterotomy and temporary stent in [place] [address] Jeff Johnson--she has had no recurrent episodes of pancreatitis since then Glaucoma Anxiety Hyperlipidemia Denies TN,DM,CVA,Lung disease,renal dise ase Neg cardiac cath in [...]
[2025-06-10 10:29] LABS: Hemoglobin A1C 140.1961 umol/L; Total Hemoglobin (HGBA1C) 3908.2784 umol/L
[2025-06-10 10:55] LABS: Alanine Aminotransferase 24 U/L (0-31); Albumin Level 4.5 g/dL (3.5-5.0); Alkaline Phosphatase 94 U/L (39-117); Anion Gap 14 (12-20); Aspartate Amino Transferase 24 U/L (5-31); Blood Urea Nitrogen 17 mg/dL (9-16); Calcium 9.3 mg/dL (8.4-10.2); Carbon Dioxide 24 mmol/L (22-29); Chloride 106 mmol/L (96-108); Cholesterol 150 mg/dL (<200); Estimated Glomerular Filt Rate > 60; HDL Cholesterol 73 mg/dL (>40); Potassium 4.1 mmol/L (3.3-5.1); Sodium 140 mmol/L (135-145); Total Protein 7.4 g/dL (6.5-8.0); Triglycerides 92 mg/dL (<150)
== END 2025-06-10 07:25 | disposition home or self-care (01) ==
LOC: HO.HMGCLDS 07:24
PROVIDERS: PCP Internal Medicine; Visit Provider Internal Medicine
DX: G35 Multiple sclerosis (principal); M85.89 Other specified disorders of bone density and structure, multiple sites; R68.89 Other general symptoms and signs
CPT/HCPCS: 36415; 80053; 80061; 82306; 83036

== ENCOUNTER 2025-07-21 14:17 | Outpatient (AMB) | payer MEDICARE, BC, SELFPAY ==
[2025-07-21 14:26] VITALS: BMI 33.1
--- NOTE | 2025-07-21 14:26 | MHC.OFFVIS ---
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 Pt states no cramping or weakness in bilateral LE. 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 She has no significant prior smoking history and is a nondiabetic. She was concerned about her family history and underwent a screening by [facility] which was a portable screen aorta peripheral vascular disease and carotid disease. There was some concern about her arterial findings. Upon discussion with her she is completely asymptomatic. She can walk a mi with no significant difficulties able to climb a flight of stairs with no concerns. She now presents to us for vascular evaluation. [facility] Medical History History of pancreatitis Osteoarthritis, multiple sites Dyslipidemia Abnormal ankle brachial index (GIOVANNA) History of invasive breast cancer Osteopenia of multiple sites Hip arthritis Onychomycosis Hx of radiation therapy History of chemotherapy Anxiety Lumbosacral disc disease Lichen planus Abnormal Pap smear of cervix H/O coronary angiogram Glaucoma Multiple sclerosis Surgical History Hx of cardiac catheterization History of ERCP History of removal of Port-a-Cath History of lumpectomy of right breast Hx of endoscopy Hx of colonoscopy H/O section Hx of cholecystectomy Family History Family/Other Triple negative malignant neoplasm of breast Paternal Grandfather Colon cancer Maternal Grandfather Colon cancer Brother Heart attack Neuropathy Father Coronary artery disease Mother Coronary artery disease Social History Household Members: Spouse Housing: House Are you a primary youth care specialist to a significant other at home: No Do you presently have visiting nurse or other home services: No Alcohol intake: current Alcohol intake frequency: holidays/special occasions only Patient Tobacco Use Status: Never used Tobacco service: No 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 Cognitive needs: No Hearing needs: No Vision needs: Yes Review of Systems Const All systems reviewed & are unremarkable except as noted in HPI and below Reports no additional complaints ENT Reports Normal hearing present Card Denies chest pain, Denies chest pain at rest, Denies chest pain with activity and Denies pedal edema Resp Denies cough GI Denies abdominal pain Musc Denies abnormal gait, Denies muscle cramps and Denies radiating pain into limb Skin/Breast Denies skin ulcer and Denies wounds Neuro Reports Normal hearing present and Denies abnormal gait Psych Reports no additional complaints Physical Exam Vital Signs: BMI result Body Mass Index 33.1 Const General: cooperative, healthy appearing and comfortable Orientation/consciousness: oriented to person, oriented to place and oriented to time HEENT Head: Yes normal to inspection Neck Neck: Yes normal visual inspection Carotids: no bruits Chest Chest palpation & inspection: normal inspection of the chest Resp Effort & Inspection: normal respiratory effort and able to speak in complete sentences Auscultation: clear to auscultation bilaterally, no crackles, no rales, no rhonchi and no wheezes Cardio Other: Bilateral palpable dorsalis pedis pulses Rate: regular rate Rhythm: regular rhythm Heart sounds: S1 normal heart sound present and S2 normal heart sound present Bruits: no carotid bruits Peripheral pulses: Peripheral pulses 2+ throughout GI Inspection: Yes normal to inspection Skin Wounds: no wounds Hair: normal Neuro General: oriented to person, oriented to place and oriented to time Cranial nerves: Yes CN's II-XII intact bilaterally and Yes Normal hearing present Cognition (Neuro): normal cognition Motor exam (neuro): 5/5 motor strength present throughout Extrem Other: venous exam: No significant superficial varicosities or spider telangiectasias, minimal edema General: No clubbing, No cyanosis and No edema Psych Appearance: grossly normal Mental Status: mental status grossly normal Speech and movement: Normal speech and movement present Results Reviewed Results Reviewed: Written report from screening test demonstrates GIOVANNA on the left of 0.89 and on the right of 0.93. Written report reviewed only Assessment & Plan Assessment & Plan (1) Abnormal ankle brachial index (GIOVANNA): Comment: GIOVANNA 0.89 on left and 0.93 on right done 01/21/2025 Code(s): R68.89 - Other general symptoms and signs Category: Medical Plan: In short patient has stable lower extremity vascular status. I do not think she has any evidence of PA D. She is asymptomatic has palpable pulses in portable screen may be a bit of an over read. We did discuss routine risk factor modification and she has minimal risk factors to begin with. We also did discuss the importance of diet and exercise. Once again do not feel her vascular status is of concern but should there be any changes happy to see her back in the future. No further testing required. Thank you for allowing us to assist in her care. If there are any questions or concerns please do not hesitate to contact us Coding Level of Care Code New Pt Level 4 (94222) Diagnoses Abnormal ankle brachial index (GIOVANNA) R68.89
== END 2025-07-21 14:51 | disposition home or self-care (01) ==
LOC: HO.HVS 14:18
PROVIDERS: PCP Internal Medicine; Visit Provider Surgery Vascular Surgery
DX: R68.89 Other general symptoms and signs (principal)
CPT/HCPCS: 99204

== ENCOUNTER → 2025-07-21 14:17 | Outpatient (BNVA) | payer MEDICARE, BC, SELFPAY | PROVIDERS: PCP Internal Medicine; Visit Provider Surgery Vascular Surgery | DX: R68.89 Other general symptoms and signs (principal) | CPT/HCPCS: 99202 ==

== ENCOUNTER 2025-08-13 13:18 | Outpatient (AMB) | payer MEDICARE, BC, SELFPAY ==
--- OUTSIDE RECORDS SUMMARY | 2024-10-15 04:30 | XMS_ITS ---
Author Organization [facility] Address [address] [place] [phone] Care Team Providers Care Crop Or Grain Farmworker Name Role Phone Tonny (RETIRED) Aneudy CRAMER Primary Care Provid er Unavailable Aneudy Conway Unavailable [phone] REASON FOR VISIT screening Problems Problem Type SNOMED Code ICD Code Onset Dates Problem Status W/U Status Risk Notes Problem Diverticular disease of colon (702163783) Diverticulosis of large intestine without perforation or abscess without bleeding (K57.30) Active confirmed Encounters Encounter Location Date Provider Diagnosis [facility] [place] Outpatient [address] [place] [phone] 10/15/2024 Aneudy Conway Colon cancer scree shabana [...] * LINDSAY STOCKTON:1950 ( 75 yo F)Acc No.[id number]:10/15/2024 COLON WITH MAC Patient: GEORGE POZO Provider: Simi Conway MD :1950 A ge:74 Y S ex:Female Date:10/15/2024 Address:[address] [place] [address] Pcp:Aneudy Lancaster (RETIRE D), DO Subjective: * Chief Complaints: * 1 . Screening. * Medical History: Objective: * Vitals: Assessment: * Assessment: 1. C olon cancer screening - Z12.11 (Primary) 2 . D iverticulosis of large intestine without perforation or abscess without bleeding - K57.30 3 . O ther hemorrhoids - K64.8 Plan: * Treatment: * Procedure Codes: G 0121 COLOREC CNCR SCR;COLNSCPY NO HI RSK, 0529F INTRVL 3+YRS PTS CLNSCP DOCD, 0528F RCMND FLW-UP 10 YRS DOCD, Modifiers: 1P * * The named appointment provid er may or may not be the originator of this progress note, and it is not deemed complete until electronically signed by the appointment provider. Sign off status: Pending * Provider: Simi Conway MD Date: 1 12/15/2023 Generated for Fransico baez/Bel/Kyitting on: 0 08/13/2025 05:56 PM EDT
[2025-08-13 13:22] VITALS: BP 122/60; PULSE 82; BMI 33.4
--- NOTE | 2025-08-13 13:22 | A.OFFVIS_ITS ---
Vital Signs 08/13/25 13:22 Height 5 ft 5 in Weight 200 lb 9.93 oz BMI 33.4 BP 122/60 Blood Pressure Location Lt brachial Position Sitting Pulse 82 Pulse Source Monitor Intake Visit Reasons: 1 yr f/up Hydraulic Engineer Required: No Allergies Tetanus Vaccines and Toxoid (Tetanus) Allergy (Intermediate, Verified 08/13/25 13:25) SWELLING Medication List - Last Reconciled 08/13/25 by Teresa Shi, RONALDO-C acetaminophen ER 1,300 mg PO Q8H atorvastatin 20 mg PO DAILY brinzolamide 1% (Azopt) 1 drp ophthalmic (eye) BID citalopram 1 tab PO DAILY latanoprost 0.005% 1 drp ophthalmic (eye) BEDTIME multivitamin 1 tab PO DAILY HPI HPI 1 yr f/up: Details: Marizol is a 74-year-old female with past medical history of hyperlipidemia, breast cancer with chemotherapy/radiation 4 years ago, heart palpitations who presents for follow-up. Her last prior visit was 08/14/2024. Today she reports that she has been doing well overall. She will get intermi ttent heart palpitations that are not causing her much concern. She has not had any sustained rapid or irregular rates. No chest discomfort at rest or with activity. No shortness of breath from her lungs noted. No presyncope, syncope, falls. No PND, orthopnea or edema. Taking meds as directed. Tries to remain active and tolerates ADLs, housework and stairs without reported difficulty. [facility] Medical History History of pancreatitis Osteoarthritis, multiple sites Dyslipidemia Abnormal ankle brachial index (GIOVANNA) History of invasive breast cancer Osteopenia of multiple sites Hip arthritis Onychomycosis Hx of radiation therapy History of chemotherapy Anxiety Lumbosacral disc disease Lichen planus Abnormal Pap smear of cervix H/O coronary angiogram Glaucoma Multiple sclerosis Surgical History Hx of cardiac catheterization History of ERCP History of removal of Port-a-Cath History of lumpectomy of right breast Hx of endoscopy Hx of colonoscopy H/O section Hx of cholecystectomy Family History Family/Other Triple negative malignant neoplasm of breast Paternal Grandfather Colon cancer Maternal Grandfather Colon cancer Brother Heart attack Neuropathy Father Coronary artery disease Mother Coronary artery disease Social History Household Members: Spouse Housing: House Are you a primary inpatient care manager rn to a significant other at home: No Do you presently have visiting nurse or other home services: No Alcohol intake: current Alcohol intake frequency: holidays/special occasions only Patient Tobacco Use Status: Never used Tobacco service: No 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 Cognitive needs: No Hearing needs: No Vision needs: Yes Review of Systems Const All systems reviewed & are unremarkable except as noted in HPI and below ENT Denies dizziness Card Denies chest pain, Denies chest pain at rest, Denies chest pain with activity, Denies rapid heart rate, Denies pedal edema, Denies edema, Denies leg edema, Denies lightheadedness, Denies palpitations, Denies dyspnea, Denies dyspnea on exertion and Denies orthopnea Resp Denies cough, Denies dyspnea and Denies dyspnea on exertion GI Denies hematochezia and Denies change in stool character Musc Denies abnormal gait, Denies limited range of motion, Denies muscle cramps, Denies muscle weakness, Denies numbness, Denies radiating pain into limb, Denies stiffness and Denies tingling Neuro Denies abnormal gait, Denies dizziness, Denies numbness and Denies tingling Endo Denies palpitations Physical Exam Vital Signs: Last Vital Signs Pulse 82 08/13/25 13:22 BP 122/60 08/13/25 13:22 BMI result Body Mass Index 33.4 Const General: cooperative, healthy appearing, comfortable and no acute distress Orientation/consciousness: patient oriented x3 Resp Effort & Inspection: normal respiratory effort Auscultation: clear to auscultation bilaterally, no crackles, no rales, no rhonchi and no wheezes Cardio Jugular venous distension: no JVD Rate: regular rate Rhythm: regular rhythm Heart sounds: S1 normal heart sound present, S2 normal heart sound present, no murmurs and no rubs Neuro General: patient oriented x3 Extrem General: Yes normal to inspection, No no pedal edema and No calf tenderness Psych Appearance: grossly normal Mental Status: mental status grossly normal Speech and movement: Normal speech and movement present Office Procedures EKG Details: Today, read by me, normal sinus rhythm, rate 82, rate 446ms 88939-Ayqpymirzxeyttvli, Complete Assessment & Plan Assessment & Plan (1) Palpitation: Code(s): R00.2 - Palpitations Category: Medical Plan: Reports of heart palpitations which feel like rapid heartbeat and feeling in her throat lasting 1-2 seconds and resolving. Holter monitor done 07/17/2023 for 7 days shows sinus rhythm with average heart rate 71, heart rate range 55 to 135, rare SVE and VE. Echocardiogram done 07/17/2023 showing EF 68%, no valve abnormalities and no regional wall motion abnormalities. Her symptoms are likely related to extrasystoles. Instructed to call if her symptoms increase and repeat Holter monitor will be ordered. Reviewed avoidance of caffeinated beverages, good hydration, getting adequate rest. No indication for med management at this time. Cardiology follow-up in 1 year, sooner if needed (2) Family history of coronary arteriosclerosis: Code(s): Z82.49 - Family history of ischemic heart disease and other diseases of the circulatory system Category: Medical Plan: Patient reports family history of CAD in her father, mother and sister. She has no known history of coronary artery disease herself. She has no reports of anginal sounding symptoms. She has undergone breast cancer treatment with chemo and radiation approximately 4 years ago. Prior echocardiogram is normal. Reviewed signs and symptoms of angina. She will notify us if she has any c oncerning symptoms. Plan Time spent on chart review, documentation, interview and assessment Coding Level of Care Code Est Pt Level 3 (04766) Complex EM visit Add On G2211 Diagnoses Palpitation R00.2 Family history of coronary arteriosclerosis Z82.49 CPT Codes EKG - CPT: 71916-Anoqxszpavmtufgfz, Complete ([id number]) Time Spent (min) 24
--- OUTSIDE RECORDS SUMMARY | 2025-08-13 17:56 | XMS_ITS | Patient Health Record ---
Author Organization [facility] Address [address] [place] [address] Care Team Providers Care Education Spec Name Role Phone Tonny (RETIRED) Aneudy CRAMER Primary Care Provid er Unavailable Aneudy Conway Unavailable [phone] Allergies Allergen (clinical drug ingredient) Drug/Non Drug [...] Status Risk Notes Problem Colon cancer screening (014164760) Colon cancer screening (Z12.11) Active confirmed Problem Pre-procedure evaluation check (854897148) Encounter for other preprocedural examination (Z01.818) Active confirmed Problem Diverticular disease of colon (926127126) Diverticulosis of large intestine without perforation or abscess without bleeding (K57.30) Active confirmed Encounters Encounter Location Date Provider Diagnosis [facility] Out[facility] [address] [place], [place] [id number] 10/15/2024 Aneudy Conway Colon cancer scree shabana [...] End Date MEDICARE OF [place] [address] [place] [address] [phone] [id number] KATHHANANE CONNELLYA Self - patient is the insured [facility] [address] [place] [address] [id number] GEORGE STOCKTON Self - patient is the insured Medical (General) History Medical History History ICD Code Disc disease-L5/S! Multiple sclerosis Screening colonoscopy in 09/2003 neg exc ept for a hyperplastic polyp History of pancreatitis-she was found to have a dilated pancreatic duct and is S/P ERCP x 2 with pancreatic sphincterotomy and temporary stent in [place] [address] Jeff Johnson--she has had no recurrent episodes of pancreatitis since then Glaucoma Anxiety Hyperlipidemia Denies [place],DM,CVA,Lung disease,renal dise ase Neg cardiac cath in [...]
== END 2025-08-13 13:55 | disposition home or self-care (01) ==
LOC: HO.HCS 13:19
PROVIDERS: PCP Internal Medicine; Visit Provider Nurse Practitioner Family
DX: R00.2 Palpitations (principal); Z82.49 Family history of ischemic heart disease and other diseases of the circulatory system
CPT/HCPCS: 93010; 99213; G2211

== ENCOUNTER → 2025-08-13 13:18 | Outpatient (BNVA) | payer MEDICARE, BC, SELFPAY | PROVIDERS: PCP Internal Medicine; Visit Provider Nurse Practitioner Family | DX: R00.2 Palpitations (principal); Z82.49 Family history of ischemic heart disease and other diseases of the circulatory system; E78.5 Hyperlipidemia, unspecified; Z85.3 Personal history of malignant neoplasm of breast | CPT/HCPCS: 93005; 99212 ==

== ENCOUNTER 2025-09-08 13:20 | Outpatient (AMB) | payer MEDICARE, BC, SELFPAY ==
--- NOTE | 2025-09-08 13:37 | MHC.OFFVIS ---
Intake Visit Reasons: Inj- B/L knee OA, last inj 05/14/25 Intake Note: Marizol is a 75 year old female who presents today for repeat injection for her bilateral knees, last injections 05/14/25. Patient reports her last injections gave her relief and would like to repeat. Allergies Tetanus Vaccines and Toxoid (Tetanus) Allergy (Intermediate, Verified 09/08/25 13:49) SWELLING HPI HPI Inj- B/L knee OA, last inj 05/14/25: Details: Ms. Escalante is a 75-year-old female who presents to the office today for chronic bilateral knee pain due to osteoarthritis. Cortisone injection was last administered on 05/14/2025 which gave her relief. She is looking to repeat injections while in the office today. [facility] Medical History History of pancreatitis Osteoarthritis, multiple sites Dyslipidemia Abnormal ankle brachial index (GIOVANNA) History of invasive breast cancer Osteopenia of multiple sites Hip arthritis Onychomycosis Hx of radiation therapy History of chemotherapy Anxiety Lumbosacral disc disease Lichen planus Abnormal Pap smear of cervix H/O coronary angiogram Glaucoma Multiple sclerosis Surgical History Hx of cardiac catheterization History of ERCP History of removal of Port-a-Cath History of lumpectomy of right breast Hx of endoscopy Hx of colonoscopy H/O section Hx of cholecystectomy Family History Family/Other Triple negative malignant neoplasm of breast Paternal Grandfather Colon cancer Maternal Grandfather Colon cancer Brother Heart attack Neuropathy Father Coronary artery disease Mother Coronary artery disease Social History Household Members: Spouse Housing: House Are you a primary long term care pharmacist to a significant other at home: No Do you presently have visiting nurse or other home services: No Alcohol intake: current Alcohol intake frequency: holidays/special occasions only Patient Tobacco Use Status: Never used Tobacco service: No 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 No ecchymosis, erythema, or joint effusion. No tenderness to palpation along the medial or lateral joint lines. Full knee extension and flexion. Crepitus is felt with ROM. NVI.? Office Procedures AMB Joint Injection/Aspiration Joint Injection/Aspiration Primary Site: right knee Secondary Site: left knee Prep: site was prepped using aseptic technique, ethochloride spray was applied and injection warnings given Injected: 40 mg of, with 3 mL of, 1% plain lidocaine, 0.25% bupivacaine, in the joint and decadron Approach Used: anterolateral Procedure: The patient tolerated the procedure well, but had some pain with the injection and there was some relief with the local anesthesia Coding - Bilateral Large Joint Procedure code (CPT) selection complete Assessment & Plan Assessment & Plan (1) Osteoarthritis of knees, bilateral: Code(s): M17.0 - Bilateral primary osteoarthritis of knee Category: Medical Plan The patient was offered a cortisone injection in bilateral knees. The patient was explained the risks, benefits, and alternatives to receiving this injection. After receiving consent for the injection, the patient had the procedure done while in the office today. The patient tolerated the procedure well with no complications. Follow-up will be PRN, or sooner if needed. Coding Level of Care Code Est Pt Level 3 (22397) Diagnoses Osteoarthritis of knees, bilateral M17.0 CPT Codes Coding - 09838 - Bilateral Large Joint: 34572 - Bilateral Large Joint ([id number])
== END 2025-09-08 14:25 | disposition home or self-care (01) ==
LOC: HO.HOS 13:21
PROVIDERS: PCP Internal Medicine; Visit Provider Physician Assistant
DX: M17.0 Bilateral primary osteoarthritis of knee (principal)
CPT/HCPCS: 20610

== ENCOUNTER → 2025-09-08 13:20 | Outpatient (BNVA) | payer MEDICARE, BC, SELFPAY | PROVIDERS: PCP Internal Medicine; Visit Provider Physician Assistant | DX: M17.0 Bilateral primary osteoarthritis of knee (principal) | CPT/HCPCS: 20610; J0665; J1100; J2003 ==

== ENCOUNTER 2025-10-22 10:15 | Outpatient (REF) | payer MEDICARE, BC, SELFPAY ==
--- OUTSIDE RECORDS SUMMARY | 2024-10-15 03:30 | XMS_ITS ---
Author Organization [facility] Address [address] [place] [phone] Care Team Providers Care Cooling Pipe Inspector Name Role Phone Tonny (RETIRED) Aneudy CRAMER Primary Care Provid er Unavailable Aneudy Conway Unavailable [phone] REASON FOR VISIT screening Problems Problem Type SNOMED Code ICD Code Onset Dates Problem Status W/U Status Risk Notes Problem Diverticular disease of colon (549395091) Diverticulosis of large intestine without perforation or abscess without bleeding (K57.30) Active confirmed Encounters Encounter Location Date Provider Diagnosis [facility] [place] Outpatient [address] [place] [id number] 10/15/2024 Aneudy Conway Colon cancer scree shabana [...] * LINDSAY STOCKTON:1950 ( 75 yo F)Acc No.[id number]:10/15/2024 COLON WITH MAC Patient: GEORGE POZO Provider: Simi Conway MD :1950 A ge:74 Y S ex:Female Date:10/15/2024 Address:[address] [place] [address] Pcp:Aneudy Lancaster (RETIRE D), DO Subjective: * Chief Complaints: * S creening Assessment: * Assessment: 1. C olon cancer screening - Z12.11 (Primary) 2 . D iverticulosis of large intestine without perforation or abscess without bleeding - K57.30 3 . O ther hemorrhoids - K64.8 Plan: * Procedure Codes: G 0121 COLOREC CNCR SCR;COLNSCPY NO HI [id number] INTRVL 3+YRS PTS CLNSCP [id number] RCMND FLW-UP 10 YRS DOCD, Modifiers: 1P [...] Date: 12/15/2023 Generated for Fransico baez/Bel/Yen on: 12/23/2024 12:23 PM EST
--- OUTSIDE RECORDS SUMMARY | 2025-08-18 08:00 | XMS_ITS ---
Author Organization [facility] Address [address] [place] [address] Care Team Providers Care Lathe Operator Name Role Phone Xochitl AU, Maria De Jesus Allen Primary Care Provider Un available Anita Hanley Unavailable [phone] Encounters Encounter Location Date Provider Diagnosis [address] [address] 08/18/2025 Anita Hanley Plan Of Treatment No Information Progress Notes * Singh STOCKTONB:1950 ( 75 yo F)Acc No.[id number]:08/18/2025 Progress Notes Patient: Marizol POZO Provider: Aditi Hanley DPM :1950 A ge:75 Y S ex:Female Date:08/18/2025 Address:[address] [place], [place] [address] Pcp:Kee Ace Subjective: * Chief Complaints: * [...] 0 08/18/2025 Generated for Fransico baez/Bel/Kyitting on: 12/23/2024 12:23 PM EST
--- NOTE | ~2025-10-22 | MM_ITS ---
EXAMINATION: DXA BONE DENSITY AXIAL HISTORY: M85.89 - Other specified disorders of bone density and structure, multiple... TECHNIQUE: MedPlexus Dual energy absorptiometry (DEXA) of the lumbar spine, total left hip, and femoral neck was performed. COMPARISON: Comparison is made with the prior examination dated 05/30/2023. FINDINGS: The bone mineral density of the lumbar spine is 1.078 g/cm2, corresponding to a T-score of -0.8, and a Z-score of 0.2. This is indicative of normal bone mineral density. This represents a BMD change of 11.5% compared to the prior exam. This is statistically significant. The bone mineral density of the left total hip is 0.926 g/cm2, corresponding to a T-score of -0.6, and a Z-score of 0.5. This is indicative of normal bone mineral density. This represents a BMD change of 7.4% compared to the prior exam. This is statistically significant. The bone mineral density of the left femoral neck is 0.933 g/cm2, corresponding to a T-score of -0.8, and a Z-score of 0.6. This is indicative of normal bone mineral density. This represents a BMD change of 134% compared to the prior exam. FRACTURE RISK: The FRAX index suggests a ten year probability of major osteoporotic fracture of 13.3%, and of hip fracture 1.4%. MM/XR DEXA axial skeleton IMPRESSION: Based on bone mineral density, and according to World Health Organization (WHO) criteria, the diagnosis is consistent with normal bone mineral density. Statistically, 68% of repeat scans fall within 1 SD (+/- 0.010 g/cm2 for AP spine L1-L4) and 1 SD (+/- 0.012 g/cm2 for femur total) FRAX is a trademark of the [employer] [place] [employer] Metabolic Bone Disease, a World Health Organization (WHO) Collaborating Center. Electronically signed by: Aneudy Krishnan MD 10/22/2025 11:11 AM [facility]
--- NOTE | ~2025-10-22 | MM_ITS ---
EXAMINATION: MM SCREENING DIGITAL BREAST TOMOSYNTHESIS, BILATERAL CLINICAL INFORMATION: Screening. Asymptomatic. COMPARISON: Mammography: Comparison is made with available priors TECHNIQUE: Digital breast mammography with tomosynthesis is performed in both the craniocaudal and mediolateral oblique views along with computer-aided detection (CAD). FINDINGS: There are scattered areas of fibroglandular density. Right: Right postsurgical changes are stable. There are no significant masses, abnormal calcifications, or other abnormalities. Left: Asymmetry inferior breast anterior depth on MLO view. Asymmetry lateral breast anterior depth on CC view. Asymmetry lateral breast posterior depth on CC view. No suspicious calcifications or other abnormal findings. MM/MM tomosynthesis screening BI IMPRESSION: Additional imaging is recommended ASSESSMENT: BI-RADS Category 0: Incomplete - Need additional Imaging Evaluation RECOMMENDATION: 1. Additional views of the left breast. 2. Targeted ultrasound if warranted after review of the additional views. 3. Radiology department staff will contact the patient for additional imaging. Additional Imaging required Electronically signed by: Lizett Felder DO 10/26/2025 09:46 AM EST
--- OUTSIDE RECORDS SUMMARY | 2025-10-22 12:24 | XMS_ITS | Patient Health Record ---
Author Organization [facility] Address [address] [place] [address] Care Team Providers Care Car Servicer Name Role Phone Tonny (RETIRED) Aneudy CRAMER Primary Care Provid er Unavailable Aneudy Conway Unavailable [phone] Allergies Allergen (clinical drug ingredient) Drug/Non Drug Allergy documented on EMR Reaction Allergy Type Onset Date Status Tetanus Unknown Drug Allergy Active Reason For Referral No Information Medications Medication SIG (Take, Route, Frequency, Duration) Notes Start Date End Date Status Tylenol 8 Hour Arthritis Pain 650 MG Tablet Extended Release 2 tablets as needed Orally every 8 hrs Active Latanoprost 0.005 % Solution 1 drop into affected eye in the evening Ophthalmic Once a day Active Atorvastatin Calcium 20mg Active Brinzolamide 1 % Suspension Ophthalmic; Duration: 90 Active Azopt Active Citalopram Hydrobromide 20mg Active Social History Social History Additional Details Category Social Info Options Details Miscellaneous: Marital status: 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 Section Notes: Nonsmoker;no sig alcohol Nonsmoker;no sig alcohol Problems Problem Type SNOMED Code ICD Code Onset Dates Problem Status W/U Status Risk Notes Problem Colon cancer screening (021201198) Colon cancer screening (Z12.11) Active confirmed Problem Pre-procedure evaluation check (712951025) Encounter for other preprocedural examination (Z01.818) Active confirmed Problem Diverticular disease of colon (734594549) Diverticulosis of large intestine without perforation or abscess without bleeding (K57.30) Active confirmed Plan Of Treatment Future Test Test Name Order Date COLONOSCOPY 12/09/2013 COLONOSCOPY 07/15/2024 Insurance Providers Payer Name Payer Address Payer Phone Subscriber Number Group Number Insured Name Patient Relationship to Insured Coverage Start Date Coverage End Date MEDICARE OF [place] [address] [place] [address] [phone] [id number] GEORGE STOCKTON Self - patient is the insured [employer] [facility] [address] [place] [address] [phone] [id number] GEORGE STOCKTON Self - patient is the insured Medical (General) History Medical History History ICD Code Disc disease-L5/S! Multiple sclerosis Screening colonoscopy in 09/2003 neg exc ept for a hyperplastic polyp History of pancreatitis-she was found to have a dilated pancreatic duct and is S/P ERCP x 2 with pancreatic sphincterotomy and temporary stent in [place] [address] Jeff Johnson--she has had no recurrent episodes of pancreatitis since then Glaucoma Anxiety Hyperlipidemia Denies [place],DM,CVA,Lung disease,renal dise ase Neg cardiac cath in [...]
--- OUTSIDE RECORDS SUMMARY | 2025-10-22 12:24 | XMS_ITS | Patient Health Record ---
Author Organization [facility] Address [address] [place] [address] Care Team Providers Care Tax Clerk Name Role Phone Xochitl AU, Maria De Jesus Allen Primary Care Provider Un available Anita Hanley Unavailable [phone] Reason For Referral No Information Encounters Encounter Location Date Provider Diagnosis [facility] [address] [place] [address] 06/01/2025 Anita Hanley [facility] [address] [place] [address] 07/07/2025 Anita Hanley Plan Of Treatment No Information Insurance Providers Payer Name Payer Address Payer Phone Subscriber Number Group Number Insured Name Patient Relationship to Insured Coverage Start Date Coverage End Date Medicare National [facility] [address] [place] [address] [id number] Marizol Escalante Self - patient is the insured [facility] [address] [place] [address] [id number] Marizol Escalante Self - patient is the insured
== END 2025-10-22 10:16 | disposition home or self-care (01) ==
LOC: HO.MAMMO 10:15
PROVIDERS: Absent Provider Nurse Practitioner Adult Health; PCP Internal Medicine; Visit Provider Internal Medicine
DX: Z12.31 Encounter for screening mammogram for malignant neoplasm of breast (principal); M85.89 Other specified disorders of bone density and structure, multiple sites
CPT/HCPCS: 77063; 77067; 77080

== ENCOUNTER → 2025-10-22 10:16 | Outpatient (BNV) | payer MEDICARE, BC, SELFPAY | PROVIDERS: Absent Provider Nurse Practitioner Adult Health; PCP Internal Medicine; Visit Provider Radiology Diagnostic Radiology | DX: E28.39 Other primary ovarian failure (principal) | CPT/HCPCS: 77080 ==

== ENCOUNTER 2025-11-03 09:20 | Outpatient (REF) | payer MEDICARE, BC, SELFPAY ==
--- OUTSIDE RECORDS SUMMARY | 2025-08-18 08:00 | XMS_ITS ---
Author Organization [facility] Address [address] [place] [address] Care Team Providers Care Tetryl Dissolver Operator Name Role Phone Xochitl AU, Maria De Jesus Allen Primary Care Provider Un available Anita Hanley Unavailable [phone] Encounters Encounter Location Date Provider Diagnosis [address] [address] 08/18/2025 Anita Hanley Plan Of Treatment No Information Progress Notes * Singh STOCKTONB:1950 ( 75 yo F)Acc No.[id number]:08/18/2025 Progress Notes Patient: Marizol POZO Provider: Aditi Hanley DPM :1950 A ge:75 Y S ex:Female Date:08/18/2025 Address:[address] [place], [place] [address] Pcp:Kee Ace Subjective: * Chief Complaints: * * Medical History: Objective: * Vitals: Assessment: Plan: * Treatment: * Images: * The named appointment provid er may or may not be the originator of this progress note, and it is not deemed complete until electronically signed by the appointment provider. Sign off status: Pending * Provider: Aditi Hanley DPM Date: 0 08/18/2025 Generated for Fransico baez/Bel/Kyitting on: 01/04/2025 10:47 AM EST
--- NOTE | ~2025-11-03 | MM_ITS ---
EXAMINATION(S): 1. MM DIAGNOSTIC DIGITAL BREAST TOMOSYNTHESIS, LEFT 2. TARGETED ULTRASOUND OF THE LEFT BREAST CLINICAL INFORMATION: -Personal history of right breast lumpectomy in 2019 for invasive ductal carcinoma (ultrasound-guided needle core biopsy on September 29, 2019). -Callback from screening for left breast findings: --Asymmetry in the inferior breast anterior depth on the MLO view --Asymmetry in the lateral breast anterior depth on the CC view --Asymmetry in the lateral breast posterior depth on the CC view -No history of nipple discharge. COMPARISON: Comparison made to multiple prior, most recent October 22, 2025, and most remote September 26, 2017. TECHNIQUE: Spot compression tomosynthesis images were obtained FINDINGS: BREAST COMPOSITION: There are scattered areas of fibroglandular density. LEFT BREAST: 1) Asymmetry in the lateral breast posterior depth on the CC view is pliable with spot compression. On today's images, the local parenchyma has similar appearance to previous XCCL view in 2019, and likely represented overlapping fibroglandular breast tissue. 2) Focal asymmetry in the lower outer quadrant anterior breast, at approximately 2 cm from the nipple persists on today's spot compression views. Targeted ultrasound of the left breast was performed at the location of the mammographic finding. The survey shows multiple focally dilated ducts. One of the ducts located at 4:00 axis showed two adjacent 0.2 cm intraductal echogenic masses, approximately 0.5 cm apart, at approximately 3 cm from the nipple. One of these masses showed internal vascularity with color Doppler evaluation, suggesting solid nature. The additional mass without demonstratable internal vascularity could represent debris. MM/MM tomosynthesis added views L IMPRESSION: LEFT BREAST: 1. Two adjacent intraductal masses, one of them with internal vascularity, at the location of the mammographic focal asymmetry in the lower outer quadrant anterior breast. Suspicious findings. Ultrasound-guided needle sample is recommended for the one with demonstratable internal vascularity. Given proximity, the adjacent intraductal focus could also be attempted to be sampled at same time. 2. Asymmetry in the lateral breast posterior depth likely represented overlapping fibroglandular breast tissue. No dedicated imaging follow-up needed. ASSESSMENT: BI-RADS: Category 4: Suspicious RECOMMENDATION: Biopsy recommended Results were discussed with the patient at time of visit. This patient's information was entered into a reminder system with a target due date for their next mammogram. Electronically signed by: Rafal Collins MD 11/03/2025 11:09 AM PAUL
--- OUTSIDE RECORDS SUMMARY | 2025-11-03 10:47 | XMS_ITS | Patient Health Record ---
Author Organization [facility] Address [address] [place] [address] Care Team Providers Care Rug Sizer Name Role Phone Xochitl AU, Maria De Jesus Allen Primary Care Provider Un available Anita Hanley Unavailable [phone] Reason For Referral No Information Encounters Encounter Location Date Provider Diagnosis [facility] [address] [place] [address] 06/01/2025 [facility] [address] [place] [address] 07/07/2025 Anita Hanley Plan Of Treatment No Information Insurance Providers Payer Name Payer Address Payer Phone Subscriber Number Group Number Insured Name Patient Relationship to Insured Coverage Start Date Coverage End Date Medicare [facility] [address] [place] [address] [id number] Marizol Escalante Self - patient is the insured [facility] [address] [place] [address] [id number] Marizol Escalante Self - patient is the insured
== END 2025-11-03 09:21 | disposition home or self-care (01) ==
LOC: HO.MAMMO 09:20
PROVIDERS: Absent Provider Internal Medicine; PCP Internal Medicine; Visit Provider Internal Medicine
DX: N64.89 Other specified disorders of breast (principal)
CPT/HCPCS: 76642; 77061; 77065

== ENCOUNTER → 2025-11-03 09:30 | Outpatient (BNV) | payer MEDICARE, BC, SELFPAY | PROVIDERS: Absent Provider Internal Medicine; PCP Internal Medicine; Visit Provider Radiology Body Imaging | DX: N63.23 Unspecified lump in the left breast, lower outer quadrant (principal) | CPT/HCPCS: 76642; 77065; G0279 ==

== ENCOUNTER 2025-11-05 10:56 | Outpatient (AMB) | payer MEDICARE, BC, SELFPAY ==
--- OUTSIDE RECORDS SUMMARY | 2024-10-15 03:30 | XMS_ITS ---
Author Organization [facility] Address [address] [place] [id number] Care Team Providers Care Charter Coordinator Name Role Phone Tonny (RETIRED) Aneudy CRAMER Primary Care Provid er Unavailable Aneudy Conway Unavailable [phone] REASON FOR VISIT screening Problems Problem Type SNOMED Code ICD Code Onset Dates Problem Status W/U Status Risk Notes Problem Diverticular disease of colon (980819271) Diverticulosis of large intestine without perforation or abscess without bleeding (K57.30) Active confirmed Encounters Encounter Location Date Provider Diagnosis [facility] [place] Outpatient [address] [place] [id number] 10/15/2024 Aneudy Conway Colon cancer scree shabana Z12.11 ; Diverticulosis of large intestine without perforation or abscess without bleeding K57.30 and Other hemorrhoids K64.8 Assessments Encounter Date Diagnosis (ICD Code) Assessment Notes Treatment Notes Treatment Clinical Notes Section Notes 10/15/2024 Colon cancer screening (ICD-10 - Z12.11) 10/15/2024 Diverticulosis of large intestine without perforation or abscess without bleeding (ICD-10 - K57.30) 10/15/2024 Other hemorrhoids (ICD-10 - K64.8) Plan Of Treatment No Information Progress Notes * LINDSAY STOCKTON:1950 ( 75 yo F)Acc No.[id number]:10/15/2024 COLON WITH MAC Patient: GEORGE POZO Provider: Simi Conway MD :1950 A ge:74 Y S ex:Female Date:10/15/2024 Address:[address] [place] [address] Pcp:Aneudy Lancaster (RETIRE D), DO Subjective: * Chief Complaints: * S creening Assessment: * Assessment: 1. C olon cancer screening - Z12.11 (Primary) 2 . D iverticulosis of large intestine without perforation or abscess without bleeding - K57.30 3 . O ther hemorrhoids - K64.8 Plan: * Procedure Codes: G 0121 COLOREC CNCR SCR;COLNSCPY NO HI [id number] INTRVL 3+YRS PTS CLNSCP [id number] RCMND FLW-UP 10 YRS DOCD, Modifiers: 1P Billing Information: * Procedure Codes: G0121 COLOREC CNCR SCR;COLNSCPY NO HI RSK. 0529F INTRVL 3+YRS PTS CLNSCP DOCD. 0528F RCMND FLW-UP 10 YRS DOCD. Modifiers: 1P * The named appointment provid er may or may not be the originator of this progress note, and it is not deemed complete until electronically signed by the appointment provider. Sign off status: Pending * Provider: Simi Conway MD Date: 12/15/2023 Generated for Fransico baez/Bel/Yen on: 01/06/2025 02:12 PM EST
--- OUTSIDE RECORDS SUMMARY | 2025-08-18 08:00 | XMS_ITS ---
Author Organization [facility] Address [address] [place] [address] Care Team Providers Care Accounts Receivable Associate Name Role Phone Xochitl AU, Maria De Jesus Allen Primary Care Provider Un available Anita Hanley Unavailable [phone] Encounters Encounter Location Date Provider Diagnosis [address] [address] 08/18/2025 Anita Hanley Plan Of Treatment No Information Progress Notes * Singh STOCKTONB:1950 ( 75 yo F)Acc No.[id number]:08/18/2025 Progress Notes Patient: Marizol POZO Provider: Aditi Hanley DPM :1950 A ge:75 Y S ex:Female Date:08/18/2025 Address:[address] [place], [place] [address] Pcp:Kee Ace Subjective: * Chief Complaints: * [...] 0 08/18/2025 Generated for Fransico baez/Bel/Kyitting on: 01/06/2025 02:12 PM EST
[2025-11-05 11:27] VITALS: BP 124/70; PULSE 69; RESP 16; TEMP 36.7; O2SAT 98; BMI 32.1
--- NOTE | 2025-11-05 11:27 | A.OFFPC_ITS ---
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: No Allergies Tetanus Vaccines and Toxoid (Tetanus) Allergy (Intermediate, Verified 11/05/25 11:55) SWELLING Medication List - Last Reconciled 11/05/25 by Maria De Jesus Leung MD acetaminophen ER 1,300 mg PO Q8H atorvastatin 20 mg PO DAILY brinzolamide 1% (Azopt) 1 drp ophthalmic (eye) BID citalopram 1 tab PO DAILY latanoprost 0.005% 1 drp ophthalmic (eye) BEDTIME multivitamin 1 tab PO DAILY Tobacco use date assessed: 11/05/25 Fall risk assessment: 1 Fall in past year Last assessed Fall Risk: 11/05/25 Dental Screening Dental Screen Date: 11/05/25 Did you have a dental visit in the last 12 months?: Yes Did you have a dental problem in the last 6 months where you did not have access to dental care?: No Was dental information given to patient?: Patient has dentist HPI 5m follow up HPI Details The patient is a 75 year old female presenting for her follow-up visit.. Her current medications include Azopt and latanoprost eye drops, c italopram 20 mg, and atorvastatin. She has discontinued the use of tolnaftate, which was previously for a toe issue that has since resolved. She no longer sees a cigar brander for this. For eye care, she sees an printing machine operator tape rules, Dr. Degroot. Her previous evp of products & co founder, has moved, and she is looking to establish care with a new one. Regarding health maintenance, the patient received her first Shingrix vaccine and is due for the second dose in 2 to 6 months. She reported only itching at the injection site with no other side effects like achiness. A lipid panel has been ordered, and the patient confirms she is usually fasting for such blood work. She reports having arthritis and mentions pursuing cortisone shots in the joint previously.. She has an exercise machine at home but has buttock pain, and she notes difficulty getting up from the floor. [facility] Medical History History of pancreatitis Osteoarthritis, multiple sites Dyslipidemia Abnormal ankle brachial index (GIOVANNA) History of invasive breast cancer Osteopenia of multiple sites Hip arthritis Onychomycosis Hx of radiation therapy History of chemotherapy Anxiety Lumbosacral disc disease Lichen planus Abnormal Pap smear of cervix H/O coronary angiogram Glaucoma Multiple sclerosis Surgical History Hx of cardiac catheterization History of ERCP History of removal of Port-a-Cath History of lumpectomy of right breast Hx of endoscopy Hx of colonoscopy H/O section Hx of cholecystectomy Family History Family/Other Triple negative malignant neoplasm of breast Paternal Grandfather Colon cancer Maternal Grandfather Colon cancer Brother Heart attack Neuropathy Father Coronary artery disease Mother Coronary artery disease Social History Household Members: Spouse Housing: House Are you a primary customer care consultant to a significant other at home: No Do you presently have visiting nurse or other home services: No Alcohol intake: current Alcohol intake frequency: holidays/special occasions only Patient Tobacco Use Status: Never used Tobacco service: No 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 Depression Screening Interpretation: Negative Depression Screening Done: Yes Source: Developed by Drs. Aneudy Mora, Rosette Ho, Dickson Byrne and colleagues, with an educational corey from [employer]. Thrive Questionnaire Date Thrive assessed: 05/28/25 I am a: Patient What is your living situation today?: I have a steady place to live Within the past 12 months, did the food you bought not last and you didn't have the money to get more?: Never true Within the past 12 months, did you worry whether your food would run out before you got money to buy more?: Never true Do you have trouble paying for medicines?: No Do you have trouble getting transportation to medical appointments?: No Do you have trouble paying your heating and electricity bill?: No Do you have trouble taking care of your child, family member or friend?: No Do you have trouble with day-to-day activities such as bathing, preparing meals, shopping, managing finances, etc.?: No Are you currently unemployed and looking for a job?: No Are you interested in more education?: No Please select the resources that you would like help with: None Currently or been in a relationship where the following occur: No concerns reported THRIVE Score: 0 RONNIE-7 AMB Questionnaire RONNIE-7 Date RONNIE - 7 assessed: 06/04/25 Source: Developed by Drs. Aneudy Mora, Rosette Ho, Dickson Byrne and colleagues, with an educational corey from [employer]. Review of Systems Const Denies daytime sleepiness, Reports difficulty sleeping, Reports fatigue, Denies frequent falls, Denies headache(s), Denies poor appetite, Denies snoring and Denies weakness Eyes Details: Has glaucoma, now sees Karina Degroot at [facility] Denies dizziness, Denies headache(s) and Denies neck pain Card Denies chest pain at rest, Denies chest pain with activity, Denies syncope, Denies leg edema, Denies palpitations, Denies dyspnea and Denies dyspnea on exertion Resp Denies cough, Denies dyspnea, Denies dyspnea on exertion and Denies snoring GI Denies abdominal pain, Denies constipation, Denies heartburn, Denies diarrhea and Denies nausea Details: Sees Magali Cota at [facility] every 2 years Denies urinary frequency, Denies urinary incontinence and Denies urinary urgency Musc Denies abnormal gait, Reports back pain, Denies myalgias, Reports arthralgias, Denies neck pain and Denies numbness Skin/Breast Denies breast skin changes, Denies breast pain, Denies breast mass and Denies rash Neuro Denies abnormal gait, Denies dizziness, Denies syncope, Denies frequent falls, Denies headache(s), Denies numbness, Denies seizure-like activity, Denies paresthesias, Denies tremor(s) and Denies weakness Psych Denies anxiety, Denies depression, Denies auditory hallucinations and Denies visual hallucinations Endo Reports fatigue and Denies palpitations Brandon/Lymph Reports no additional complaints Aller/Immun Reports no additional complaints Physical exam (Primary Care) Vital Signs: Last Vital Signs Temp 98.1 F 11/05/25 11:27 Pulse 69 11/05/25 11:27 Resp 16 11/05/25 11:27 BP 124/70 11/05/25 11:27 Pulse Ox 98 11/05/25 11:27 Oxygen Delivery Method Room Air 11/05/25 11:27 BMI result Body Mass Index 32.1 Tobacco/Smoking Status: Tobacco use Status Tobacco use date assessed 11/05/25 11/05/25 11:31 Patient Tobacco Use Status Never used Tobacco 11/05/25 11:31 Depression Screening Interpretation: Negative Thrive Assessment: Date of Thrive Assessment Date Thrive assessed 05/28/25 11/05/25 11:31 Currently or been in a relationship where the following occur: No concerns reported Const General: no acute distress and alert Orientation/consciousness: patient oriented x3 HENMT Head: Yes normocephalic Ears: external ears normal, TM's normal bilaterally and EAC's normal General nose exam: Normal external nose present Face and sinus: Yes face symmetric Mouth: Normal oral and palatal mucosa present and moist mucous membranes Eyes General: appearance normal, both eyes and all related structures Eyelids: Yes eyelids normal Conjunctivae: conjunctivae normal Sclerae: sclerae normal Pupils: Equal, round and reactive pupils present EOM: EOMs intact bilaterally Neck Neck: Yes full ROM, Yes no lymphadenopathy and Yes supple Thyroid: Thyroid normal Chest Breast/axilla palpation: normal palpation of the breasts Resp Effort & Inspection: normal respiratory effort and able to speak in complete sentences Auscultation: clear to auscultation bilaterally Cardio Other: Unable to palpate dorsalis pedis pulse or posterior tibial pulses bilaterally Rate: regular rate Rhythm: regular rhythm Heart sounds: S1 normal heart sound present and S2 normal heart sound present GI Palpation (GI): Soft to palpation, nontender, no guarding and no masses Auscultation: normal bowel sounds Other: Goes to [facility], sees Magali Beata gets cervical cancer screenings every 2 year General: Yes no CVA tenderness Back/Spine/Pelvis Back: no CVA tenderness and No back tenderness Skin General skin exam: no rashes or lesions noted Neuro General: patient oriented x3, gait normal, moves all extremities, Normal light touch and pain sensation, no focal motor deficits and CN's II-XI intact bilaterally Cranial nerves: Yes Equal, round and reactive pupils present Cognition (Neuro): normal cognition Gait exam (Neuro): Normal gait present Motor exam (neuro): 5/5 motor strength present throughout Extrem General: Yes normal to inspection, Yes full ROM, Yes no joint enlargement, Yes no pedal edema and Yes normal gait Psych Appearance: grossly normal and well kempt Mental Status: mental status grossly normal Speech and movement: Normal speech and movement present Affect: normal affect Results Reviewed Results Reviewed: Name: Marizol Escalante Age/Sex: 75/F : 1950 Unit#: [id number] Attend Dr: Farideh Martinez MD Re10/30/25 Status: REG RCR [facility] Disch: SPEC : [id number] HARPREET: 10/30/25 STATUS: COMP REQ : [id number] RECD: 10/30/[address]: Farideh Martinez MD COMP: 10/30/25 ENTERED: 10/30/[address]: Aneudy Lancaster DO ORDERED: CBC Auto Diff Test Result Flag Reference WBC 6.3 4.8-10.8 X10*3/uL RBC 4.76 4.20-5.50 X10*6/uL HGB 14.0 12.0-16.0 g/dl HCT 42.3 37.0-47.0 % MCV 88.9 80.0-98.0 fL MCH 29.4 27.0-33.0 pg MCHC 33.1 31.0-35.0 g/dl RDW 13.5 11.0-16.0 % PLT 229 160-400 X10*3/uL MPV 10.2 9.4-12.3 fL Neut Pct Auto 64.6 45-73 % ImGran Pct Auto 0.2 0.0-0.4 % Lymp Pct Auto 17.1 L 20-40 % Clarendon Pct Auto 15.2 H 2-11 % Eos Pct Auto 2.6 0-4 % Baso Pct Auto 0.3 0-2 % NRBC Pct Auto 0.0 0.0-0.2 /100WBC ANC Neut Abs # 4.1 2.0-8.3 x10*3/uL ImGran Abs Auto 0.01 0.00-0.03 X10*3/uL Lymph Abs Auto 1.1 L 1.2-4.9 X10*3/uL Clarendon Abs Auto 1.0 0.1-1.2 X10*3/uL Eos Abs Auto 0.2 0.0-0.4 X10*3/uL Baso Abs Auto 0.0 0.0-0.2 X10*3/uL NRBC Abs Auto 0.000 0.0-0.012 X10*3/uL ole: Marizol Escalante Age/Sex: 75/F : 1950 Unit#: [id number] Attend Dr: Farideh Martinez MD Re10/30/25 Status: REG [facility] Location: [facility] Disch: SPEC : [id number] HARPREET: 10/30/25 STATUS: COMP REQ : [id number] RECD: 10/30/[address]: Farideh Martinez MD COMP: 10/30/25 ENTERED: 10/30/[address]: Aneudy Lancaster DO ORDERED: CMP Test Result Flag Reference Sodium 140 135-145 mmol/L Potassium 4.1 3.3-5.1 mmol/L CL 109 H 96-108 mmol/L CO2 24 22-29 mmol/L Gap 11 L 12-20 BUN 13 9-16 mg/dL Creat 0.83 0.5-1.4 mg/dL Estimated CrCl 65.7 Provided height and weight: 165.1 cm, 87.09 kg. eGFR (calculated from the MDRD study equation) and eCrCl (calculated from the Cockcroft-Gault equation) are based on different parameters and may not yield comparable results. If eCrCl result is absurd, please check patient's height/weight. eGFR > 60 Chronic Kidney Disease: Estimated GFR < 60 mL/min/1.73m2 Severe Kidney Disease: Estimated GFR < 15 mL/min/1.73m2 Glucose, Random 114 60-115 mg/dL CA 8.9 8.4-10.2 mg/dL Total Bili 0.5 0.0-1.0 mg/dL AST (GOT) 24 5-31 U/L ALT (GPT) 20 0-31 U/L Protein, Total 6.8 6.5-8.0 g/dL Alb 4.3 3.5-5.0 g/dL Alk Phos 84 39-117 U/L Coding Level of Care Code Est Pt Level 4 (14711) Diagnoses Dyslipidemia E78.5 Anxiety F41.9 Assessment & Plan Assessment & Plan (1) Dyslipidemia: Code(s): E78.5 - Hyperlipidemia, unspecified Category: Medical Plan: Fasting lipid panel ordered, currently taking atorvastatin 20 mg daily. Reinforced importance of adhering to a healthy diet and getting regular exercise. (2) Anxiety: Code(s): F41.9 - Anxiety disorder, unspecified Category: Medical Plan: Controlled on citalopram 20 mg daily Orders: Orders Lipid Panel 11/05/25 E78.5 - Hyperlipidemia, unspecified Medications: Changed From citalopram 1 tab PO DAILY F41.9 - Anxiety disorder, unspecified To citalopram 20 mg PO DAILY 90 tabs 4RF 3 months F41.9 - Anxiety disorder, unspecified Refilled atorvastatin 20 mg PO DAILY 90 tabs 4RF
--- OUTSIDE RECORDS SUMMARY | 2025-11-05 14:11 | XMS_ITS | Patient Health Record ---
Author Organization [facility] Address [address] [place] [address] Care Team Providers Care User Experience Designer Name Role Phone Xochitl AU, Maria De Jesus Allen Primary Care Provider Un available Anita Hanley Unavailable [phone] Reason For Referral No Information Encounters Encounter Location Date Provider Diagnosis [facility] [address] [place] [address] 06/01/2025 [facility] [address] [place] [address] 07/07/2025 Anita Hanley Plan Of Treatment No Information Insurance Providers Payer Name Payer Address Payer Phone Subscriber Number Group Number Insured Name Patient Relationship to Insured Coverage Start Date Coverage End Date Medicare National [facility] [address] [facility] [place] [address] [id number] Marizol Escalante Self - patient is the insured [facility] [address] [place] [address] [id number] Marizol Escalante Self - patient is the insured
--- OUTSIDE RECORDS SUMMARY | 2025-11-05 14:12 | XMS_ITS | Patient Health Record ---
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 Name Role Phone Tonny (RETIRED) Aneudy CRAMER Primary Care Provid er Unavailable Aneudy Conway Unavailable [phone] Allergies Allergen (clinical drug ingredient) Drug/Non Drug [...] Status Risk Notes Problem Colon cancer screening (230850087) Colon cancer screening (Z12.11) Active confirmed Problem Pre-procedure evaluation check (912151661) Encounter for other preprocedural examination (Z01.818) Active confirmed Problem Diverticular disease of colon (603602191) Diverticulosis of large intestine without perforation or abscess without bleeding (K57.30) Active confirmed Plan Of Treatment Future Test Test Name Order Date COLONOSCOPY 12/09/2013 COLONOSCOPY 07/15/2024 Insurance Providers Payer Name Payer Address Payer Phone Subscriber Number Group Number Insured Name Patient Relationship to Insured Coverage Start Date Coverage End Date MEDICARE OF [place] [address] [place] [address] [id number] GEORGE STOCKTON Self - patient is the insured [employer] [facility] [address] [place] [address] [phone] [id number] GEORGE STOCKTON Self - patient is the insured Medical (General) History Medical History History ICD Code Disc disease-L5/S! Multiple sclerosis Screening colonoscopy in 09/2003 neg exc ept for a hyperplastic polyp History of pancreatitis-she was found to have a dilated pancreatic duct and is S/P ERCP x 2 with pancreatic sphincterotomy and temporary stent in [place] [address] Jeff Johnson--she has had no recurrent episodes of pancreatitis since then Glaucoma Anxiety Hyperlipidemia Denies DE,DM,CVA,Lung disease,renal dise ase Neg cardiac cath in [...]
== END 2025-11-05 12:35 | disposition home or self-care (01) ==
LOC: HO.HMCC 10:58
PROVIDERS: PCP Internal Medicine; Visit Provider Internal Medicine
DX: E78.5 Hyperlipidemia, unspecified (principal); F41.9 Anxiety disorder, unspecified

== ENCOUNTER → 2025-11-05 10:56 | Outpatient (BNVA) | payer MEDICARE, BC, SELFPAY | PROVIDERS: PCP Internal Medicine; Visit Provider Internal Medicine | DX: E78.5 Hyperlipidemia, unspecified (principal); M19.90 Unspecified osteoarthritis, unspecified site; F41.9 Anxiety disorder, unspecified; Z79.899 Other long term (current) drug therapy | CPT/HCPCS: 99212 ==